=== PATIENT | male | born 1970 | race Caucasian/White ===

== ENCOUNTER → 2020-12-04 08:59 | Outpatient (BNVA) | payer OTHER, MEDICAID, SELFPAY | PROVIDERS: Family Provider Nurse Practitioner Family; PCP Nurse Practitioner Family; Referring Provider Family Medicine; Visit Provider Podiatrist Foot & Ankle Surgery | DX: E11.42 Type 2 diabetes mellitus with diabetic polyneuropathy (principal); L97.514 Non-pressure chronic ulcer of other part of right foot with necrosis of bone; Z89.431 Acquired absence of right foot; L84 Corns and callosities; L60.3 Nail dystrophy | CPT/HCPCS: 73630 ==

== ENCOUNTER 2020-12-04 21:53 | Inpatient (IN) | payer MEDICARE, MEDICAID, SELFPAY ==
[2020-12-04 22:08] VITALS: BP 100/72; PULSE 98; RESP 18; TEMP 36.7; O2SAT 98; BMI 34.4
--- NOTE | 2020-12-04 22:33 | ED_ITS ---
HPI - General Adult General: Chief complaint: General Medical Stated complaint: SENT BY DR ELKINS/WANTS ON IV ANTIBIOTICS Time Seen by Provider: 12/04/20 22:13 Source: patient Mode of arrival: ambulatory Limitations: no limitations History of Present Illness: HPI narrative: 50-year-old male who was sent here today by Dr. Elkins. Patient has cellulitis along necrosis to chronic ulcer to his right foot. He is going to surgery on him tomorrow and want him admitted overnight with IV antibiotics. He states he has had pain. He denies any fever. Denies any worsening or improving factors. He denies any vomiting or diarrhea. Associated symptoms: Deny chest pain, dyspnea, headache(s), nausea, rash or vomiting Review of Systems Const: Denies: fever(s), chills, body aches or change in appetite Eyes: Denies: blurry vision or eye discomfort ENMT: Denies: throat pain or dental pain Card: Denies: chest pain Resp: Denies: dyspnea GI: Denies: abdominal pain, nausea, vomiting or diarrhea : Denies: dysuria Musc: Denies: neck pain or back pain Skin/Breast: Denies: rash Neuro: Denies: headache(s) Psych: Denies: depression Morris/Lymph: Denies: easy bruising All/Imm: Denies: urticaria PFSH ED PFSH: Medical History Anxiety Diabetic neuropathy DM type 2 (diabetes mellitus, type 2) Hyperlipidemia Hypertension PVD (peripheral vascular disease) Surgical History H/O hernia repair History of heart artery stent Hx of amputation of lesser toe Family History Sister Diabetes Mother Diabetes Father CAD (coronary artery disease) Social History Smoking and tobacco status: current every day smoker Second hand smoke exposure: Yes Physical Exam Const: COMMON NORMALS: no acute distress, patient oriented x3 and healthy appearing HENMT: COMMON NORMALS: normocephalic and atraumatic HEAD & SCALP: normocephalic and atraumatic Eye: COMMON NORMALS: Equal, round and reactive pupils present and EOMs intact bilaterally PUPIL: Yes Equal, round and reactive pupils present Neck/C-Spine: COMMON NORMALS: full ROM and supple Chest: COMMONS NORMALS: normal inspection of the chest and normal palpation of entire chest wall Resp: COMMON NORMALS: normal respiratory effort, No retractions, No use of accessory muscles and clear to auscultation bilaterally AUSCULTATION: clear to auscultation bilaterally Cardio: COMMON NORMALS: regular rate, regular rhythm and No murmurs present (Cardio) RATE: regular rate RHYTHM: regular rhythm GI: COMMON NORMALS: Normal to inspection, nondistended, normoactive bowel sounds present, Soft to palpation, non-tender and no masses PALPATION: Yes Soft to palpation Extremity: NARRATIVE EXTREMITY EXAM: Cellulitis to right foot with chronic ulcer and exposed bone with necrosis Neuro: COMMON NORMALS: patient oriented x3, moves all extremities and no focal motor deficits Psych: COMMON NORMALS: mental status grossly normal, Normal thought process present and cooperative THOUGHT PROCESS: Normal thought process present Skin: COMMON NORMALS: no rashes or lesions noted and no wounds GENERAL SKIN EXAM: no rashes or lesions noted Course Vital Signs: Vital signs: Vital Signs Temperature 98.0 F 12/04/20 22:08 Pulse Rate 98 12/04/20 22:08 Respiratory Rate 18 12/04/20 22:08 Blood Pressure 100/72 12/04/20 22:08 Pulse Oximetry 98 12/04/20 22:08 MDM - General Adult [facility] Narrative: Medical decision making narrative: Patient presents here with chronic ulcer with necrosis and a cellulitis. I spoke to Dr. Elkins will start on IV antibiotics and admit. Discharge Plan Discharge Patient Disposition: Admitted As Inpatient Clinical Impression: Right great toe amputee, Ulcer of right foot with necrosis of bone, DM type 2 (diabetes mellitus, type 2) Condition: Stable Prescriptions: No Action nystatin 100,000 unit/mL suspension 5 ml PO TID 10 Days Qty: 150 RF: 0 clopidogrel [Plavix] 75 mg tablet 75 mg PO DAILY RF: 0 aspirin [Adult Aspirin Regimen] 81 mg tablet,delayed release (DR/EC) 81 mg PO DAILY RF: 0 oxycodone-acetaminophen 5-325 mg tablet 1 tab PO DAILY PRN (Reason: pain) 7 Days Qty: 7 RF: 0 gabapentin 400 mg capsule 400 mg PO TID 30 Days Qty: 90 RF: 0 atorvastatin 40 mg tablet 40 mg PO DAILY RF: 0 Jardiance 10 mg tablet 10 mg PO DAILY RF: 0 Levemir FlexTouch U-100 Insuln 100 unit/mL (3 mL) insulin pen 32 unit SUBCUT DAILY RF: 0 lisinopril 2.5 mg tablet 2.5 mg PO DAILY RF: 0 potassium chloride 20 mEq tablet extended release 40 meq PO DAILY RF: 0 metolazone 5 mg tablet 5 mg PO DAILY RF: 0 insulin aspart U-100 [Novolog Flexpen U-100 Insulin] 100 unit/mL (3 mL) insulin pen 2 unit SUBCUT TID RF: 0 levofloxacin 500 mg tablet 500 mg PO DAILY RF: 0 bupropion HCl [Wellbutrin SR] 150 mg tablet sustained-release 12 hr 150 mg PO BID Qty: 60 RF: 2 furosemide 40 mg tablet 40 mg PO DAILY Qty: 30 RF: 0 Referrals: Shakira Benavides FNP [Primary Care Provider] - Coding Level of Care Code ED 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
[2020-12-04 23:29] VITALS: RESP 18
[2020-12-04] MEDS: HYDROmorphone 1 mg/mL INJ 1 mL IVP (23:29)
[2020-12-04] MEDS: sodium chloride 0.9% 1,000 ML 999 ML IV (23:30)
[2020-12-04] MEDS: aztreonam 2,000 MG in sodium chloride 0.9% (plus) 100 ML 200 MG IV (23:31)
[2020-12-04] MEDS: vancomycin 1,000 MG in sodium chloride 0.9% 250 ML 250 MG IV (23:44)
[2020-12-04 23:59] LABS: Basophils # 0.1 10^3/uL (0.0-0.1); Basophils % 0.9 %; Eosinophils # 0.2 10^3/uL (0.0-0.8); Eosinophils % 2.1 %; Hematocrit 49.1 % (42.0-52.0); Lymphocytes # 3.2 10^3/uL (0.8-4.8); Mean Corpuscular HGB Conc 32.6 g/dL (30.0-36.0); Mean Corpuscular Hemoglobin 27.7 pg (28.0-34.0); Mean Corpuscular Volume 84.9 fL (80-94); Mean Platelet Volume 9.6 fL (7.4-10.4); Monocytes # 0.8 10^3/uL (0.2-0.9); Neutrophils # 6.67 10^3/uL (1.8-7.7); Neutrophils % 60.4 %; Nucleated Red Blood Cells % 0 %; Platelet Count 358 10^3/cmm (130-400); Red Blood Count 5.78 10^6/uL (4.1-5.3); Red Cell Distribution Width 16.4 % (12.1-15.1)
[2020-12-05] VITALS (22 sets, daily range): BP systolic 94–153; BP diastolic 53–97; PULSE 59–101; RESP 15–24; TEMP 36.4–36.9; O2SAT 90–98
[2020-12-05 00:20] LABS: Alanine Aminotransferase 14 U/L (0-41); Albumin Level 3.7 g/dL (3.5-5.2); Alkaline Phosphatase 114 IU/L (40-130); Aspartate Amino Transferase 12 U/L (0-40); Blood Urea Nitrogen 29 mg/dL (6-20); C Reactive Protein 26.9 mg/L (0.0-4.9); Calcium 9.2 mg/dL (8.5-10.5); Carbon Dioxide 28 mmol/L (22-29); Chloride 93 mmol/L (98-107); Globulin 4.3 g/dL (1.3-4.6); Glomerular Filtration Rate 58.9 mL/min (90-130); Glucose 166 mg/dL (65-115); Osmolality Calculated 288 mOsm/kg (285-295); Sodium 134 mmol/L (136-145); Total Bilirubin 0.4 mg/dL (0.15-1.2)
[2020-12-05 00:21] LABS: Anion Gap 17.2 (5-19); Potassium 4.2 mmol/L (3.5-5.1)
--- NOTE | 2020-12-05 00:27 | PM.HP ---
Providers/Chief Complaint Admitting Physician: Angel Villalobos Primary Care Provider: EDEN Lee Chief Complaint: SENT BY DR ELKINS/GALO ON IV ANTIBIOTICS History of Present Illness Phil Balbuena is a 50 year old male with a history of type 2 diabetes on insulin therapy, history of chronic nonhealing wound status post toes amputation was referred to the emergency department by Dr. Elkins in order for him to be admitted for surgical debridement. Patient has no new complaint. He states he has been compliant with his insulin therapy. His recent hemoglobin A1c is 6.5 per patient. Patient given IV antibiotics in the ED and hospitalized for further management. Review of Systems Narrative: He denies any fever. Except as documented, all other systems reviewed and negative. Medications/Allergies Home Medications Medication Instructions Recorded Confirmed Last Taken Type atorvastatin 40 mg tablet 40 mg PO DAILY 05/03/20 12/04/20 Unknown History empagliflozin 10 mg tablet 10 mg PO DAILY 05/03/20 12/04/20 Unknown History insulin aspart U-100 100 unit/mL 2 unit SUBCUT TID ml 05/03/20 12/04/20 Unknown History (3 mL) subcutaneous pen insulin detemir U-100 100 unit/mL 32 unit SUBCUT DAILY ml 05/03/20 12/04/20 Unknown History (3 mL) subcutaneous pen lisinopril 2.5 mg tablet 2.5 mg PO DAILY 05/03/20 12/04/20 Unknown History metolazone 5 mg tablet 5 mg PO DAILY 05/03/20 12/04/20 Unknown History potassium chloride 20 mEq 40 meq PO DAILY tab 05/03/20 12/04/20 Unknown History tablet,extended release nystatin 100,000 unit/mL oral 5 ml PO TID 10 Days #150 ml 05/21/20 12/04/20 Unknown Rx suspension bupropion HCl 150 mg tablet,12 hr 150 mg PO BID #60 tab 09/17/20 12/04/20 Unknown Rx sustained-release furosemide 40 mg tablet 40 mg PO DAILY #30 tab 11/28/20 12/04/20 Unknown Rx aspirin 81 mg tablet,delayed 81 mg PO DAILY 11/29/20 12/04/20 Unknown History release clopidogrel 75 mg tablet 75 mg PO DAILY 11/29/20 12/04/20 Unknown History gabapentin 400 mg capsule 400 mg PO TID 30 Days #90 cap 11/29/20 12/04/20 Unknown Rx oxycodone-acetaminophen 5 mg-325 1 tab PO DAILY PRN 7 Days #7 tab 11/29/20 12/04/20 Unknown Rx mg tablet levofloxacin 500 mg tablet 500 mg PO DAILY 12/04/20 12/04/20 Unknown History Allergies Allergy/AdvReac Type Severity Reaction Status Date / Time Penicillins Allergy swelling Verified 12/04/20 22:13 phentermine [From Adipex-P] Allergy swelling Verified 12/04/20 22:13 PFSH Acute PFSH: Medical History Anxiety Diabetic neuropathy DM type 2 (diabetes mellitus, type 2) Hyperlipidemia Hypertension PVD (peripheral vascular disease) Surgical History H/O hernia repair History of heart artery stent Hx of amputation of lesser toe Family History Sister Diabetes Mother Diabetes Father CAD (coronary artery disease) Social History Smoking and tobacco status: current every day smoker Second hand smoke exposure: Yes Vitals/I&O/Wt Last Vital Signs Temp 98.0 F 12/04/20 22:08 Pulse 98 12/04/20 22:08 Resp 18 12/04/20 23:29 BP 100/72 12/04/20 22:08 Pulse Ox 98 12/04/20 22:08 Weight last 48 hrs Weight 112.037 kg Physical Exam Const: COMMON NORMALS: no acute distress, patient oriented x3 and well nourished HENMT: COMMON NORMALS: normocephalic, moist oral mucous membranes and oropharynx normal Eye: COMMON NORMALS: Equal, round and reactive pupils present, conjunctivae normal and no scleral icterus Neck/C-Spine: COMMON NORMALS: supple and no JVD Lymph: LYMPHATIC: no lymphadenopathy noted Chest: CHEST: Yes Symmetrical chest wall rise Resp: COMMON NORMALS: normal respiratory effort, No use of accessory muscles and clear to auscultation bilaterally Cardio: COMMON NORMALS: regular rate, regular rhythm, S1 normal heart sound present and S2 normal heart sound present GI: COMMON NORMALS: Normal to inspection, nondistended, normoactive bowel sounds present, non-tender and no bruits : COMMON NORMALS: Yes no CVA tenderness Back/Pelvis: COMMON NORMALS: no thoracic nor lumbar tenderness and thoraco-lumbar ROM normal Extremity: COMMON NORMALS: no clubbing, cyanosis or edema NARRATIVE EXTREMITY EXAM: s/p right great toe amputation. Amputation wound in dressing. Neuro: COMMON NORMALS: patient oriented x3, CN's II-XII intact bilaterally and no focal motor deficits Psych: COMMON NORMALS: mental status grossly normal, Normal thought process present and cooperative Skin: COMMON NORMALS: no rashes or lesions noted WOUNDS: Yes wounds noted (Right foot wound) Data : 12/04/20 23:50 12/04/20 23:50 A&P Assessment and plan (1) Ulcer of right foot with necrosis of bone: Status: Acute (2) Diabetic neuropathy: Status: Acute Qualifiers: Diabetes mellitus complication detail: diabetic polyneuropathy Diabetes mellitus type: type 2 Qualified Code(s): E11.42 - Type 2 diabetes mellitus with diabetic polyneuropathy (3) Right great toe amputee: Status: Acute (4) PVD (peripheral vascular disease): Status: Acute (5) DM type 2 (diabetes mellitus, type 2): Status: Acute Additional A&P Information Admit patient to the medical floor. Consult to podiatry-Dr. Elkins who plans to do irrigation and debridement in the OR. We will cover with IV Azactam and IV vancomycin. Pain management as needed. Hold aspirin and Plavix in anticipation for surgery in the morning. Keep n.p.o. overnight. Hold Lantus insulin and resume after surgery. Manage blood sugar with aggressive insulin sliding scale. Attestations Medical Necessity Statement*: Patient with chronic nonhealing right foot wound with bone necrosis needing surgical debridement and antibiotics. He will need to be hospitalized for further management. Coding Level of Care Code Acute Geriatric Nurse Practitioner for [facility] Fwd Exam Comprehensive Diagnoses Ulcer of right foot with necrosis of bone L97.514 Diabetic neuropathy E11.42 Diabetes mellitus complication detail: diabetic polyneuropathy Diabetes mellitus type: type 2 Right great toe amputee Z89.411 PVD (peripheral vascular disease) I73.9 DM type 2 (diabetes mellitus, type 2) E11.9
[2020-12-05 01:37] LABS: Erythrocyte Sedimentation Rate 32 mm/hr (0-10)
--- NOTE | 2020-12-05 02:26 | PC.PHAR ---
Vancomycin is dosed at 1500mg IVPB every 12 hours to produce a predicted trough level of 16.35 (population based pharmacokinetic analysis). A trough level has been ordered from the lab to be obtained before the fourth dose to confirm and adjust if needed. The Azactam is continued at the ordered dose of 2000mg IVPB every 12 hours on basis of creatinine clearance of 88.5.
[2020-12-05] MEDS: morphine 4 mg/mL SDV 1 mL 2 MG IVP ×2 (02:59→04:31)
[2020-12-05] MEDS: sodium chloride 0.9% 1,000 ML 75 ML IV ×2 (03:08→17:29)
[2020-12-05 06:43] LABS: Glucose Point of Care 154 mg/dL (70-110)
--- NOTE | 2020-12-05 08:43 | PM.CONSULT ---
Providers/Reason For Consult Consulting Physican/Specialty*: Bhargav Frey D.P.M. Reason for Consult*: Gangrene right foot osteomyelitis right foot Attending Physician: Issa Dupree Primary Care Provider: EDEN Lee History of Present Illness History of Present Illness Phil Balbuena is a 50 year old male with gangrenous changes at his right foot. History of great toe amputation in August 2020 and second toe removed in October [address] Khalil in [facility]. States he has had oral antibiotic therapy has been on Levaquin for several months, denies history of PICC line. He sees [employer] [facility] Dr. Eugene in [facility], had orders for a CT angio he will not be able to keep that appointment as he is hospitalized at this time. Denies any acute events over night, reports pain to his right foot. Requesting pain medication. Has been n.p.o. since midnight. Patient denies any subjective nausea, vomiting, fever, chills, shortness of breath or chest pain. Review of Systems General: Reports: 10 or more systems reviewed and unremarkable except in HPI and below Const: Denies: fever(s) or chills Eyes: Denies: change in vision or eye redness Card: Reports: swelling of feet/ankles and leg pain with exertion; Denies: chest pain or palpitations Resp: Denies: dyspnea GI: Denies: nausea or vomiting : Denies: hematuria Musc: Reports: extremity pain and extremity swelling Skin/Breast: Reports: erythema, sores, dry skin, nail changes and change in hair Neuro: Reports: numbness in extremities, sensory changes and difficulty walking Psych: Denies: suicidal ideation or homicidal ideation Endo: Reports: cold intolerance Morris/Lymph: Denies: easy bruising Meds/Allergies Home Medications and Allergies Home Medications Medication Instructions Recorded Confirmed Last Taken Type atorvastatin 40 mg tablet 40 mg PO DAILY 05/03/20 12/04/20 Unknown History empagliflozin 10 mg tablet 10 mg PO DAILY 05/03/20 12/04/20 Unknown History insulin aspart U-100 100 unit/mL 2 unit SUBCUT TID ml 05/03/20 12/04/20 Unknown History (3 mL) subcutaneous pen insulin detemir U-100 100 unit/mL 32 unit SUBCUT DAILY ml 05/03/20 12/04/20 Unknown History (3 mL) subcutaneous pen lisinopril 2.5 mg tablet 2.5 mg PO DAILY 05/03/20 12/04/20 Unknown History metolazone 5 mg tablet 5 mg PO DAILY 05/03/20 12/04/20 Unknown History potassium chloride 20 mEq 40 meq PO DAILY tab 05/03/20 12/04/20 Unknown History tablet,extended release nystatin 100,000 unit/mL oral 5 ml PO TID 10 Days #150 ml 05/21/20 12/04/20 Unknown Rx suspension bupropion HCl 150 mg tablet,12 hr 150 mg PO BID #60 tab 09/17/20 12/04/20 Unknown Rx sustained-release furosemide 40 mg tablet 40 mg PO DAILY #30 tab 11/28/20 12/04/20 Unknown Rx aspirin 81 mg tablet,delayed 81 mg PO DAILY 11/29/20 12/04/20 Unknown History release clopidogrel 75 mg tablet 75 mg PO DAILY 11/29/20 12/04/20 Unknown History gabapentin 400 mg capsule 400 mg PO TID 30 Days #90 cap 11/29/20 12/04/20 Unknown Rx oxycodone-acetaminophen 5 mg-325 1 tab PO DAILY PRN 7 Days #7 tab 11/29/20 12/04/20 Unknown Rx mg tablet levofloxacin 500 mg tablet 500 mg PO DAILY 12/04/20 12/04/20 Unknown History Allergies Allergy/AdvReac Type Severity Reaction Status Date / Time Penicillins Allergy swelling Verified 12/04/20 22:13 phentermine [From Adipex-P] Allergy swelling Verified 12/04/20 22:13 Current Medications Current Medications Generic Name Dose Route Start Last Admin Trade Name Freq PRN Reason Stop Dose Admin Sodium Chloride 1,000 mls @ 75 mls/hr 12/05/20 02:06 12/05/20 03:08 Sodium Chloride 0.9% IV 75 mls/hr .[id number] TIM Administration PFSH Acute PFSH: Medical History Anxiety Diabetic neuropathy DM type 2 (diabetes mellitus, type 2) Hyperlipidemia Hypertension PVD (peripheral vascular disease) Surgical History H/O hernia repair History of heart artery stent Hx of amputation of lesser toe Family History Sister Diabetes Mother Diabetes Father CAD (coronary artery disease) Social History Smoking and tobacco status: current every day smoker Second hand smoke exposure: Yes Vitals/I&O/Wt Last Vital Signs Temp 97.8 F 12/05/20 07:16 Pulse 94 12/05/20 07:16 Resp 17 12/05/20 07:16 BP 116/80 12/05/20 07:16 Pulse Ox 95 12/05/20 07:16 12/04/20 12/05/20 12/05/20 22:59 06:59 14:59 Intake Total 1350 / 1350 Output Total 950 / 950 Balance 400 / 400 Weight last 48 hrs Weight 247 lb Physical Exam Narrative: EXAM NARRATIVE: Patient is alert and oriented ?3 and in no acute distress. The following is a focused bilateral lower extremity exam. VASCULAR: Dorsalis pedis faintly palpable posterior tibial arteries faintly palpable. Capillary refill time less than 5 seconds left distal hallux and right fourth toe. Calf is supple and nontender proximally and distally. Decreased pedal hair bilaterally. NEUROLOGICAL: Protective sensation intact 0/10 sites, tested with Beckley Consuelo monofilament to bilateral feet. DERMATOLOGICAL: Rodrigues grade 4 wound right foot with exposed first, second and third metatarsals as 90% devitalized fibrotic base with eschar, strong malodor mild purulence measures 7 cm x 6 m x 1 cm. Mild erythema to the proximal leg right, no lymphangitic streaking proximal to the right knee. Mild edema to the right foot and leg. Dystrophic toenails 4 and 5 on the right and 1 through 5 at the left. Hyperkeratosis subfifth metatarsal head left foot. MUSCULOSKELETAL: Tenderness palpation at the right foot. Status post first second and third toe amputation right foot. Ankle joint dorsiflexion is to neutral with the right. A&P Assessment and plan (1) Ulcer of right foot with necrosis of bone: Status: Acute (2) DM type 2 (diabetes mellitus, type 2): Status: Acute Qualifiers: Diabetes mellitus correction insulin use: with correction use Diabetes mellitus complication status: with circulatory complication Diabetes mellitus complication detail: with peripheral angiopathy with gangrene Qualified Code(s): E11.52 - Type 2 diabetes mellitus with diabetic peripheral angiopathy with gangrene; Z79.4 - jail (current) use of insulin (3) Peripheral arterial disease: Status: Acute Mr. Balbuena is a 50-year-old diabetic male with peripheral arterial disease, currently has open wound exposed to bone with gangrenous changes at right forefoot. Concern for underlying vasculopathy. Recommend CT angiogram of abdominal aorta with runoff during his hospitalization. Will have a staged approach with initial infection control consisting of transmetatarsal amputation of the right foot scheduled today at noon he is n.p.o. since midnight. Once infection is controlled will await vascular work-up and plan for primary delayed closure. Consult Attestations Medical Necessity Statement: Gangrene right foot osteomyelitis right foot Coding Level of Care Code Acute Environmental Engineer for [facility] Diagnoses Ulcer of right foot with necrosis of bone L97.514 DM type 2 (diabetes mellitus, type 2) E11.52; Z79.4 Diabetes mellitus termite exterminator helper insulin use: with termite exterminator helper use Diabetes mellitus complication status: with circulatory complication Diabetes mellitus complication detail: with peripheral angiopathy with gangrene Peripheral arterial disease I73.9
[2020-12-05] MEDS: atorvastatin 40 mg Tablet PO (08:53)
[2020-12-05 09:07] LABS: Glucose Point of Care 188 mg/dL (70-110)
--- NOTE | 2020-12-05 10:08 | PC.PHAR ---
PT STATES HIS HELPS HIM TAKE CARE OF HIS MEDICATIONS-PT STATES HE HASNT BEEN USING HIS LEVEMIR FLEXTOUCH FOR A MONTH AND A HALF-PT STATES HE USES HIS NOVOLOG FLEXPEN SS TID PRN WITH MEALS-EXT MED HISTORY SHOWS LAST FILLED ON 10/24/20 FOR 10 UNITS WITH MEALS PLUS CORRECTION MAX 60 UNITS PER DAY
--- NOTE | 2020-12-05 10:57 | PM.PN ---
Subjective Subjective: Interval history: He states that he has continued being in pain through the night in his right foot. States that 5-325 mg oxycodone-acetaminophen is not working for him. He says at home he takes at least 10 mg. Also states that the 2 mg morphine he received last night was not effective. On review of his medications I do see that the dosing is been increased up to 10 mg oxycodone, as well as 4 mg IV morphine as needed. He otherwise denies any chest pain or pressure. Denies shortness of breath. Foot pain is his only complaint. Vitals/I&O/Wt Last Vital Signs Temp 97.8 F 12/05/20 07:16 Pulse 94 12/05/20 07:16 Resp 17 12/05/20 07:16 BP 116/80 12/05/20 07:16 Pulse Ox 95 12/05/20 07:16 12/04/20 12/05/20 12/05/20 22:59 06:59 14:59 Intake Total 1350 / 1350 Output Total 950 / 950 Balance 400 / 400 Weight last 48 hrs Weight 112.037 kg Physical Exam Const: COMMON NORMALS: no acute distress and patient oriented x3 HENMT: COMMON NORMALS: oropharynx normal Neck/C-Spine: COMMON NORMALS: no JVD Resp: COMMON NORMALS: normal respiratory effort and clear to auscultation bilaterally AUSCULTATION: clear to auscultation bilaterally Cardio: COMMON NORMALS: no JVD, regular rhythm, S1 normal heart sound present, S2 normal heart sound present and No murmurs present (Cardio) RHYTHM: regular rhythm HEART SOUNDS: S1 normal heart sound present and S2 normal heart sound present GI: COMMON NORMALS: Normal to inspection, nondistended, normoactive bowel sounds present, Soft to palpation and non-tender PALPATION: Yes Soft to palpation Extremity: COMMON NORMALS: no joint enlargement and no pedal edema Neuro: COMMON NORMALS: patient oriented x3 and moves all extremities Skin: COMMON NORMALS: no rashes or lesions noted GENERAL SKIN EXAM: no rashes or lesions noted Data : 12/04/20 23:50 12/04/20 23:50 A&P Assessment and plan (1) Ulcer of right foot with necrosis of bone: He is n.p.o. for planned potation debridement later this afternoon. Adrenal reviewed. Recommendation for CT angiogram normal aorta with runoff for additional vascular assessment. He states that this was already planned as outpatient. He states that he had femorofemoral bypass back in August, and states that previously his vascular surgeon thought that the flow to the foot was good. He does say that his vascular surgeon thought that a lot of his disease in his foot was related to microvascular circulation. His vascular surgeon was not who ordered a follow-up CT angiogram. 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 His creatinine appears 1.3, higher than his previous baseline although we not have anything more recent than 2019. Today he is proceeding with debridement/amputation. We will reassess renal function in the morning. If approved, consider contrast vascular imaging. Resume antiplatelets as soon as deemed safe. Continue IV antibiotics. Follow-up cultures. Status: Acute (2) Diabetic neuropathy: Status: Acute Qualifiers: Diabetes mellitus complication detail: diabetic polyneuropathy Diabetes mellitus type: type 2 Qualified Code(s): E11.42 - Type 2 diabetes mellitus with diabetic polyneuropathy (3) Right great toe amputee: Status: Acute (4) PVD (peripheral vascular disease): Status: Acute (5) DM type 2 (diabetes mellitus, type 2): Status: Acute Qualifiers: Diabetes mellitus complication detail: with peripheral angiopathy with gangrene Diabetes mellitus complication status: with circulatory complication Diabetes mellitus termite helper insulin use: with termite helper use Qualified Code(s): E11.52 - Type 2 diabetes mellitus with diabetic peripheral angiopathy with gangrene; Z79.4 - long term care phlebotomist (current) use of insulin (6) Smoking addiction: Encourage cessation as continued smoking will be detrimental to healing of the wounds in his lower extremity. Status: Acute Attestations Medical Necessity Statement*: Continue admission for assessment management of chronic nonhealing right foot wound status post multiple toe amputations in setting of diabetes with neuropathy, peripheral arterial disease. Coding Level of Care Code Acute Caponizer for [facility] Fwd Exam Comprehensive Diagnoses Ulcer of right foot with necrosis of bone L97.514 Diabetic neuropathy E11.42 Diabetes mellitus complication detail: diabetic polyneuropathy Diabetes mellitus type: type 2 Right great toe amputee Z89.411 PVD (peripheral vascular disease) I73.9 DM type 2 (diabetes mellitus, type 2) E11.52; Z79.4 Diabetes mellitus complication detail: with peripheral angiopathy with gangrene Diabetes mellitus complication status: with circulatory complication Diabetes mellitus termite helper insulin use: with termite helper use Smoking addiction F17.200
[2020-12-05 11:04] LABS: Glucose Point of Care 169 mg/dL (70-110)
--- NOTE | 2020-12-05 11:11 | PC.NURSE ---
1110-PT TO OR FOR SURGICAL PROCEDURE
[2020-12-05] MEDS: sodium chloride 0.9% 1,000 ML 30 ML IV (11:29)
--- NOTE | 2020-12-05 11:33 | P.ANESASSM_ITS ---
Pre-Anesthetic Assessment Pre-Anesthetic Assessment: Height/Weight: Height 1.8 m Weight 112.037 kg Temp Pulse Resp BP Pulse Ox 97.8 F 94 17 116/80 95 12/05/20 07:16 12/05/20 07:16 12/05/20 07:16 12/05/20 07:16 12/05/20 07:16 Preop Diagnosis: Ulcer of R foot Proposed Procedure: Operation Date: 12/05/20 12:00 Proposed Procedures p right transmetatarsal amputation(Right) - Bhargav Frey DPM Familial anesthetic complications: None Was Beta Jesus taken within 24 hours: N/A Last intake: NPO > 8 hrs Social: Social History: Tobacco and No alcohol Exam: Pre-Anes Outpt Exam: alert, oriented x 3, clear to auscultation bilaterally and regular rate & rhythm Airway: Cervical ROM: WNL MP: 4 Dentition: Other (missing teeth) CV/HEM: CV/HEM: HTN, NV (4 stents placed > 1 year ago, plavix yesterday) and PVD (fem-fem bypass) Metabolic: Metabolic: DM, Hyperlipidemia and Morbid obesity Anesthetic Plan: ASA status: 3 Anesthesia: MAC Risk of > 500 ml blood loss (7ml/kg in children): No Meds/Allergies Current Medications: Current Medications Generic Name Dose Route Start Last Admin Trade Name Freq PRN Reason Stop Dose Admin Atorvastatin Calci um 40 mg 12/05/20 09:00 12/05/20 08:53 Atorvastatin 40 Mg Tablet PO 40 mg DAILY TIM Administration Sodium Chloride 1,000 mls @ 75 ml s/hr 12/05/20 02:06 12/05/20 11:28 Sodium Chloride 0.9% IV Infused .[id number] TIM Infusion Sodium Chloride 1,000 mls @ 30 ml s/hr 12/05/20 11:30 12/05/20 11:29 Sodium Chloride 0.9% IV 12/06/20 11:29 30 mls/hr .Q24H TIM Administration Insulin Aspart 0 unit 12/05/20 08:00 12/05/20 08:53 Insulin Aspart 1 00 Unit/1 Ml SUBCUT 2 unit WM&BEDTIME TIM Administration Protocol PFSH Anesthesia PFSH: Medical History Anxiety Diabetic neuropathy DM type 2 (diabetes mellitus, type 2) Hyperlipidemia Hypertension PVD (peripheral vascular disease) Surgical History H/O hernia repair History of heart artery stent Hx of amputation of lesser toe Family History Sister Diabetes Mother Diabetes Father CAD (coronary artery disease) Social History Smoking and tobacco status: current every day smoker Second hand smoke exposure: Yes Data Anesthesia CBC & Chem 7: 12/04/20 23:50 12/04/20 23:50 Other Labs: Laboratory Results - last 48 hr 12/04/20 12/04/20 12/04/20 23:50 23:50 23:50 WBC 11.0 H RBC 5.78 H Hgb 16.0 Hct 49.1 MCV 84.9 MCH 27.7 L MCHC 32.6 RDW 16.4 H Plt Count 358 MPV 9.6 Neut % (Auto) 60.4 Lymph % (Auto) 29.0 [place] % (Auto) 7.0 Eos % (Auto) 2.1 Baso % (Auto) 0.9 Neut # (Auto) 6.67 Lymph # (Auto) 3.2 [place] # (Auto) 0.8 Eos # (Auto) 0.2 Baso # (Auto) 0.1 Nucleated RBC % (auto) 0 Nucleated RBCs # 0.0 ESR 32 H Sodium 134 L Potassium 4.2 Chloride 93 L Carbon Dioxide 28 Anion Gap 17.2 BUN 29 H Creatinine 1.3 H GFR Calculation 58.9 L Glucose 166 H POC Glucose Calculated Osmolality 288 Calcium 9.2 Total Bilirubin 0.4 AST 12 ALT 14 Alkaline Phosphatase 114 C-Reactive Protein 26.9 H Total Protein 8.0 Albumin 3.7 Globulin 4.3 12/05/20 12/05/20 12/05/20 06:31 09:04 10:47 WBC RBC Hgb Hct MCV MCH MCHC RDW Plt Count MPV Neut % (Auto) Lymph % (Auto) [place] % (Auto) Eos % (Auto) Baso % (Auto) Neut # (Auto) Lymph # (Auto) [place] # (Auto) Eos # (Auto) Baso # (Auto) Nucleated RBC % (auto) Nucleated RBCs # ESR Sodium Potassium Chloride Carbon Dioxide Anion Gap BUN Creatinine GFR Calculation Glucose POC Glucose 154 H 188 H 169 H Calculated Osmolality Calcium Total Bilirubin AST ALT Alkaline Phosphatase C-Reactive Protein Total Protein Albumin Globulin Cardiac Studies: No Data to Display
[2020-12-05] MEDS: fentaNYL 50 mcg/mL INJ 2mL IVP (11:39)
--- NOTE | 2020-12-05 11:45 | P.HPUD_ITS ---
Surgery/Procedure H&P Update DATE OF PROCEDURE: December 05, 2020 DATE H&P PERFORMED: 12/05/20 H&P UPDATE INFORMATION: I have reviewed H&P completed within last 30 days, I have examined patient prior to procedure, No changes to prior documentation and H&P is in [facility] EMR on date indicated PREOP DIAGNOSIS: Osteomyelitis right foot, gangrene right foot PLANNED PROCEDURE: Operation Date: 12/05/20 12:00 Proposed Procedures p right transmetatarsal amputation(Right) - Bhargav Frey DPM
[2020-12-05] MEDS: vancomycin 1,000 MG SDV 1000 MG XX (12:40)
--- NOTE | 2020-12-05 12:48 | PM.OP ---
Operative Report Date of procedure: December 05, 2020 Pre-op Diagnosis: Osteomyelitis right foot, gangrene right foot Post-op diagnosis: same Procedure Done: Right transmetatarsal amputation CPT 71375 Implants: 3-0 nylon Specimens removed/disposition: Right third metatarsal head sent to microbiology for Gram stain and culture Pathology: Right fourth and fifth toe sent to pathology for permanent Surgeon: Bhargav Frey D.P.M. Stagecraft Teacher: Mike Anesthesia: MAC Estimated blood loss: 25 mL Tourniquet time: 14 minutes IV fluids: None Urine output: None Complications: None Findings: Devitalized soft tissue and bone right forefoot Condition: stable Disposition: floor Brief History: Mr. Balbuena is a 50-year-old diabetic male with gangrene right foot osteomyelitis involving the first, second and third metatarsals potentially fourth. Also has underlying peripheral arterial disease. First and second toes were amputated by Dr. Nielson and [facility] this began in September 2020. Patient presented to my clinic with worsening odor, redness, pain and swelling at the right forefoot. Recommended admission to the hospital for IV antibiotics and surgical intervention. Will need to be a staged procedure initial transmetatarsal irritation of right foot and followed by vascular work-up this will require CT angiogram of abdominal aorta with runoff to assess vascular status. Risks include pain, bleeding, numbness, residual infection, need for higher levels of amputation, revascularization, oral and IV antibiotic therapy. Patient is agreeable wishes to proceed with today's procedure of right transmetatarsal amputation. Informed consent signed. Patient evaluated preoperatively and all questions answered, no guarantees written, expressed or implied. Procedure: Under mild sedation the patient was brought to the operating room and placed on the operating table in supine position. A well-padded pneumatic tourniquet applied to the right calf. Right lower extremity were scrubbed, prepped and draped utilizing normal aseptic technique. Also preoperatively a right ankle block was performed by myself consisting of 30 cc of 0.5 sent Marcaine and 1% lidocaine plain in a one-to-one mixture. Right calf tourniquet inflated to 250 mmHg. Attention was directed to the right forefoot was able to visualize first, second and third metatarsals with bowman dusky appearance and heavy purulence at the dorsal medial forefoot. [place] incision was performed at the right forefoot down to bone followed by transection of metatarsals 1 through 5 maintaining the metatarsal parabola beveling the edges utilizing a sagittal saw all rough edges were smoothed with a hand rasp. Bleeders were ligated and cauterized as necessary. Extensor and flexor tendons were pulled under traction and transected at the most proximal margin. Right fourth and fifth toes sent to pathology for permanent. Right third metatarsal head sent to microbiology for Gram stain and culture. Incision site was flushed with copious amounts sterile sensation. Dressings consisting of 1 g of vancomycin powder, saline wet-to-dry, retention sutures with 3-0 nylon, Kerlix ABD pad and Neel wrap without compression due to underlying vasculopathy. Tourniquet was deflated and hyperemic response was noted, no pulsatile bleeders appreciated. Patient will be transferred back to the floor will be nonweightbearing to the right lower extremity. Continue empiric IV antibiotics vancomycin and Zosyn will narrow once bone culture revealed further results. Will likely require further surgical intervention this could entail a Achilles lengthening and primary delayed closure versus higher level of amputation.
--- NOTE | 2020-12-05 12:57 | XR_ITS ---
WS: [id number] Right foot, 3 views, 12/05/2020 Clinical Data: post op Comparison: Right foot, 12/04/2020 Findings: Amputation of the right fourth and fifth toes along with amputation of the distal portions of the rig ht second through fifth metatarsals has been performed. There is postoperative air noted. XR/XR foot RT min 3V* [id number] Impression: Amputation of the distal portions of the right second through fifth metatarsals and amputation of the right fourth and fifth toes.
[2020-12-05] MEDS: morphine 4 mg/mL SDV 1 mL IVP ×2 (14:30→20:25)
--- NOTE | 2020-12-05 16:00 | ANE.PACU2 ---
Inpatient post-anesthesia follow up: Airway intact: Yes Vital signs: Temperature 98.8 F Pulse Rate [Monito r] 98 Pulse Rate 100 Respiratory Rate 17 Blood Pressure [Le ft Arm] 100/72 Blood Pressure 133/85 Pulse Oximetry 97 Oxygen Delivery Me thod Room Air Oxygen Flow Rate Fraction of Inspir ed Oxygen Hydration adequate: Yes Nausea and vomiting: No Pain level: 2 Mental status: Baseline
[2020-12-05 16:37] LABS: Glucose Point of Care 122 mg/dL (70-110)
[2020-12-05] MEDS: vancomycin 1,500 MG/300 ML PIGGYBACK 150 MG IV (17:59)
[2020-12-05] MEDS: gabapentin 400 mg Capsule PO (20:26)
[2020-12-05] MEDS: buPROPion SR (12 HR) 150 mg Tablet PO (20:26)
[2020-12-05] MEDS: oxyCODONE 10 mg ER (12 HR) Tablet PO (20:27)
[2020-12-05] MEDS: aztreonam 2,000 MG in sodium chloride 0.9% (plus) 100 ML 200 MG IV (20:30)
[2020-12-05 20:43] LABS: Glucose Point of Care 217 mg/dL (70-110)
--- NOTE | 2020-12-05 20:49 | PC.NURSE ---
Pt Complaint: Pt very upset this evening stating that we are not controlling his pain and is considering leaving AMA. Both the Hospitalist and the Surgeon documentation writer were notified and agreed that the pain medication ordered was appropriate for this patient. called upset as well asking to speak to the Lean Manager of job specification writer. Chemical Economist notified that the would be calling. An increase was made in the pt Gabapentin to be started tonight. Patient was updated and is satisfied with the plan of care this evening.
[2020-12-05] MEDS: gabapentin 100 mg Capsule 200 MG PO (22:09)
[2020-12-05] MEDS: trazodone 50 mg Tablet 25 MG PO (22:10)
--- NOTE | 2020-12-05 22:36 | PC.NURSE ---
Refusal of Covid test: Spoke to the pt about the Covid test and let him know that his will not be able to visit until we get the test results. Pt refused the test.
[2020-12-06] VITALS (13 sets, daily range): BP systolic 120–135; BP diastolic 76–88; PULSE 100–115; RESP 17–24; TEMP 36.5–37.4; O2SAT 94–98
[2020-12-06] MEDS: morphine 4 mg/mL SDV 1 mL IVP ×5 (00:39→20:07)
[2020-12-06 02:33] LABS: Basophils # 0.1 10^3/uL (0.0-0.1); Basophils % 0.8 %; Eosinophils # 0.2 10^3/uL (0.0-0.8); Eosinophils % 1.5 %; Hematocrit 47.6 % (42.0-52.0); Hemoglobin 15.3 g/dL (11.7-16.6); Lymphocytes # 1.9 10^3/uL (0.8-4.8); Lymphocytes % 18.8 %; Mean Corpuscular HGB Conc 32.1 g/dL (30.0-36.0); Mean Corpuscular Hemoglobin 27.7 pg (28.0-34.0); Mean Corpuscular Volume 86.2 fL (80-94); Mean Platelet Volume 9.4 fL (7.4-10.4); Monocytes # 0.8 10^3/uL (0.2-0.9); Monocytes % 7.5 %; Neutrophils # 7.31 10^3/uL (1.8-7.7); Neutrophils % 70.9 %; Nucleated Red Blood Cells % 0 %; Platelet Count 307 10^3/cmm (130-400); Red Blood Count 5.52 10^6/uL (4.1-5.3); Red Cell Distribution Width 15.9 % (12.1-15.1); White Blood Count 10.3 10^3/uL (4.0-10.0)
[2020-12-06 02:47] LABS: Anion Gap 13.3 (5-19); Blood Urea Nitrogen 19 mg/dL (6-20); Carbon Dioxide 24 mmol/L (22-29); Chloride 101 mmol/L (98-107); Glomerular Filtration Rate 103.2 mL/min (90-130); Glucose 125 mg/dL (65-115); Magnesium 1.9 mg/dL (1.7-2.3); Osmolality Calculated 282 mOsm/kg (285-295); Potassium 4.3 mmol/L (3.5-5.1); Sodium 134 mmol/L (136-145)
[2020-12-06] MEDS: vancomycin 1,500 MG/300 ML PIGGYBACK 150 MG IV ×2 (04:57→16:06)
[2020-12-06] MEDS: sodium chloride 0.9% 1,000 ML 75 ML IV ×2 (05:32→19:52)
[2020-12-06 06:40] LABS: Glucose Point of Care 147 mg/dL (70-110)
--- NOTE | 2020-12-06 08:10 | CT_ITS ---
WS: [id number] CT ANGIOGRAPHY OF THE ABDOMINAL AORTA WITH RUNOFF TO THE ANKLES HISTORY: with runoff to distal RLE. Non-healing wounds. Hx fem-fem bypass TECHNIQUE: Arterial injection is performed during imaging to evaluate the aorta and runoff vessels to the ankles. MIP and volume rendering imaging has also been performed. All images are reviewed. All C T scans at [facility] use at least one of these dose optimization techniques: automated ex posure control; mA and/or kV adjustment per patient size (includes targeted exams where dose is match ed to clinical indication); or iterative reconstruction. Contrast: Omnipaque 350; 95 mL IV. DLP: 2185.59 mGy.cm COMPARISON: None available. Abdominal aorta: Atherosclerotic plaque throughout the aorta. There is calcified plaque and intimal t hickening. Just above the bifurcation the lumen is narrowed to 11 mm. No aneurysm. Origins of the ila iac axis, SMA and renal arteries are intact. RIGHT lower extremity arterial system: Mild plaque at the origin of the RIGHT common iliac artery. St enosis at the common iliac origin is less than 30%. Multifocal areas of plaque which are both calcifi ed and noncalcified plaque. There is a complete occlusion involving the origin of the RIGHT external iliac artery. Minimal focal reconstitution distally. Patient has a known femorofemoral bypass graft. The femorofemoral bypass graft is occluded. There is no contrast within this graft. Very small calibe r and intermittently visualized RIGHT superficial and profunda. Patent RIGHT profunda artery with darrick cified plaque proximally approaching 50%. There is an occluded RIGHT femoral to popliteal bypass dalila t. Small collaterals feeding into the tibioperoneal trunk and the posterior tibial artery. Very small caliber vessels to the ankle. LEFT lower extremity arterial system: Calcified plaque and mild atherosclerosis throughout the common iliac artery extending into the internal and external iliacs. Heavily diseased internal iliac artery . Significant atherosclerotic plaque throughout the external iliac artery. Small caliber but patent L EFT SFA. At Heron's canal is a focal area of stenosis approaching 50%. Small noncalcified plaque in the popliteal artery. Small caliber three-vessel runoff to the ankle. Distally peroneal is occluded o r very small caliber. Origin LEFT SFA 63% stenosis. Distal LEFT SFA stenosis 62%. LEFT popliteal stenosis 72%. Mild chronic emphysematous changes at the lung bases. Mild enlargement of the LEFT heart chambers. Sm all hiatal hernia. Early arterial enhancement of the liver, spleen, gallbladder, pancreas, adrenals a nd kidneys are negative for acute abnormalities. No adenopathy or ascites. Mild diffuse constipation. Appendix is normal. No GI tract obstruction. Small ventral abdominal wall hernia contains fat only. Marked distention of the urinary bladder. No osteoblastic or osteolytic bone disease. CT/CT angio abd aorta runof 91186 IMPRESSION: 1. Occluded femorofemoral bypass graft. 2. Occluded RIGHT femoral to popliteal artery bypass graft. 3. Mild stenosis distal abdominal aorta just above the bifurcation and 11 mm d iameter. 4. Distal LEFT SFA stenosis 62% and LEFT popliteal stenosis 72%. 5. Origin LEFT SFA stenosis 63%. 6. Small caliber three-vessel runoff to the ankle. The very distal LEFT peron eal artery is not visualized.
--- NOTE | 2020-12-06 08:13 | PM.PN ---
Subjective Subjective: Interval history: Mr. Balbuena is 1 day status post right transmetatarsal amputation secondary to osteomyelitis. He endorses pain to the right lower extremity. Patient denies any subjective nausea, vomiting, fever, chills, shortness of breath or chest pain. Vitals/I&O/Wt Last Vital Signs Temp 98.8 F 12/06/20 07:17 Pulse 100 12/06/20 07:17 Resp 17 12/06/20 07:17 BP 133/85 12/06/20 07:17 Pulse Ox 97 12/06/20 07:17 12/05/20 12/06/20 12/06/20 22:59 06:59 14:59 Intake Total 1440 / 2240 1003.75 / 3243.75 Output Total 550 / 1275 800 / 2075 Balance 890 / 965 203.75 / 1168.75 Weight last 48 hrs Weight 247 lb Physical Exam Narrative: EXAM NARRATIVE: Patient is alert and oriented ?3 and in no acute distress. The following is a focused bilateral lower extremity exam. VASCULAR: Dorsalis pedis faintly palpable posterior tibial arteries faintly palpable. Capillary refill time less than 5 seconds left distal hallux and right fourth toe. Calf is supple and nontender proximally and distally. Decreased pedal hair bilaterally. NEUROLOGICAL: Protective sensation intact 0/10 sites, tested with [place] Consuelo monofilament to bilateral feet. DERMATOLOGICAL: Postoperative dressings left intact, no strikethrough bleeding from outer dressing. No proximal lymphangitic streaking to the level of the right knee. Improvement to cellulitis to the right lower extremity. MUSCULOSKELETAL: No pain with posterior calf squeeze. Able to dorsiflex and plantarflex ankle. Further musculoskeletal exam deferred due to postoperative state Data : 12/06/20 02:20 12/06/20 02:20 Micro: Microbiology 12/05/20 12:36 Gram Stain - Final Foot - #1 A&P Assessment and plan (1) Ulcer of right foot with necrosis of bone: Status: Acute (2) DM type 2 (diabetes mellitus, type 2): Status: Acute Qualifiers: Diabetes mellitus correction insulin use: with terminal block assembler use Diabetes mellitus complication status: with circulatory complication Diabetes mellitus complication detail: with peripheral angiopathy with gangrene Qualified Code(s): E11.52 - Type 2 diabetes mellitus with diabetic peripheral angiopathy with gangrene; Z79.4 - longterm (current) use of insulin (3) Peripheral arterial disease: Status: Acute Mr. Balbuena is a 50-year-old diabetic male with peripheral arterial disease, currently has open wound exposed to bone with gangrenous changes at right forefoot. 1 day status post right transmetatarsal mutation left open has retention sutures and sterile dressing left intact. -Recommend vascular referral for work-up of lower extremity arterial disease this will be a priority for limb salvage -Recommend infectious disease consultation -Patient to remain nonweightbearing to the right lower extremity and elevate right lower extremity all times while resting. -Podiatry will follow. Planning on primary delayed closure should vascular status improve and have healing potential if not will require higher level of amputation more than likely. Attestations Medical Necessity Statement*: Osteomyelitis right lower extremity. Coding Level of Care Code Acute [employer] Defense Analyst for [facility] Diagnoses Ulcer of right foot with necrosis of bone L97.514 DM type 2 (diabetes mellitus, type 2) E11.52; Z79.4 Diabetes mellitus terminal block assembler insulin use: with terminal block assembler use Diabetes mellitus complication status: with circulatory complication Diabetes mellitus complication detail: with peripheral angiopathy with gangrene Peripheral arterial disease I73.9
[2020-12-06] MEDS: gabapentin 300 mg Capsule 600 MG PO ×3 (08:28→20:20)
[2020-12-06] MEDS: buPROPion SR (12 HR) 150 mg Tablet PO ×2 (08:29→20:20)
[2020-12-06] MEDS: oxyCODONE 10 mg ER (12 HR) Tablet PO ×2 (08:29→20:20)
[2020-12-06] MEDS: atorvastatin 40 mg Tablet PO (08:30)
--- NOTE | 2020-12-06 08:38 | PC.NURSE ---
pt of floor to ct
[2020-12-06] MEDS: iohexol 350 mg/mL 100 mL Btl IV (08:48)
[2020-12-06 11:21] LABS: Glucose Point of Care 134 mg/dL (70-110)
[2020-12-06] MEDS: aztreonam 2,000 MG in sodium chloride 0.9% (plus) 100 ML 200 MG IV ×2 (13:25→23:37)
--- NOTE | 2020-12-06 20:04 | P.CONIM_ITS ---
Providers/Reason For Consult Consulting Physican/Specialty*: Wilbert Nunez MD/Interventional Cardiology Reason for Consult*: Critical limb ischemia/limb salvage Requesting Physcian: Dr Dupree Attending Physician: Issa Dupree Primary Care Provider: EDEN Lee History of Present Illness History of Present Illness 50 year old male with a history of type 2 diabetes on insulin therapy, history of chronic nonhealing wound status post right toes amputation was referred to the emergency department by Dr. Frey for surgical debridement. Patient underwent metatarsal amputation secondary to gangrenous changes of the right foot and osteomyelitis. Interventional cardiology consulted to assess for possible intervention of the lower extremity as patient has both fem-fem and fem-pop bypasses occluded on the CTA and has severe PAD on the right side. Patient has been having significant right lower extremity discomfort. Review of Systems General: Reports: 10 or more systems reviewed and unremarkable except in HPI and below Const: Denies: fever(s) or chills Eyes: Denies: change in vision or eye redness Card: Reports: swelling of feet/ankles and leg pain with exertion; Denies: chest pain or palpitations Resp: Denies: dyspnea GI: Denies: nausea or vomiting : Denies: hematuria Musc: Reports: extremity pain and extremity swelling Skin/Breast: Reports: erythema, sores, dry skin, nail changes and change in hair Neuro: Reports: numbness in extremities, sensory changes and difficulty walking Psych: Denies: suicidal ideation or homicidal ideation Endo: Reports: cold intolerance Morris/Lymph: Denies: easy bruising Meds/Allergies Home Medications and Allergies Home Medications Medication Instructions Recorded Confirmed Last Taken Type atorvastatin 40 mg tablet 40 mg PO DAILY@05/03/20 12/05/20 Unknown History insulin aspart U-100 100 unit/mL See Rx Instructions .ROUTE 05/03/20 12/05/20 Unknown History (3 mL) subcutaneous pen .COMPLEX ml insulin detemir U-100 100 unit/mL See Rx Instructions .ROUTE 05/03/20 12/05/20 Unknown History (3 mL) subcutaneous pen .COMPLEX ml lisinopril 2.5 mg tablet 2.5 mg PO DAILY@05/03/20 12/05/20 Unknown History metolazone 5 mg tablet 5 mg PO DAILY 05/03/20 12/05/20 Unknown History potassium chloride 20 mEq 20 meq PO BID@08,20 tab 05/03/20 12/05/20 Unknown History tablet,extended release bupropion HCl 150 mg tablet,12 hr 150 mg PO BID #60 tab 09/17/20 12/05/20 Unknown Rx sustained-release furosemide 40 mg tablet 40 mg PO DAILY #30 tab 11/28/20 12/05/20 Unknown Rx aspirin 81 mg tablet,delayed 81 mg PO DAILY@08 11/29/20 12/05/20 Unknown History release clopidogrel 75 mg tablet 75 mg PO DAILY@08 11/29/20 12/05/20 Unknown History gabapentin 400 mg capsule 400 mg PO TID 30 Days #90 cap 11/29/20 12/05/20 Unknown Rx oxycodone-acetaminophen 5 mg-325 1 tab PO DAILY PRN 7 Days #7 tab 11/29/20 12/05/20 Unknown Rx mg tablet levofloxacin 500 mg tablet 500 mg PO DAILY 12/04/20 12/05/20 Unknown History acetaminophen [Tylenol Extra 1,500 mg PO PRN 12/05/20 12/05/20 Unknown History Strength] empagliflozin [Jardiance] 25 mg PO QAM 12/05/20 12/05/20 Unknown History oxycodone-acetaminophen [Percocet] 1 tab PO Q6H PRN 12/05/20 12/05/20 Unknown History silver [SilvaSorb] 1 applic TOPICAL DIRECTED 12/05/20 12/05/20 Unknown History sodium hypochlorite [Dakin's See Rx Instructions .ROUTE .COMPLEX 12/05/20 12/05/20 Unknown History Solution] Allergies Allergy/AdvReac Type Severity Reaction Status Date / Time Penicillins Allergy swelling Verified 12/04/20 22:13 phentermine [From Adipex-P] Allergy swelling Verified 12/04/20 22:13 Current Medications Current Medications Generic Name Dose Route Start Last Admin Trade Name Freq PRN Reason Stop Dose Admin Atorvastatin Calcium 40 mg 12/05/20 09:00 12/06/20 08:30 Atorvastatin 40 Mg Tablet PO 40 mg DAILY TIM Administration Bupropion HCl 150 mg 12/05/20 21:00 12/06/20 08:29 Bupropion Sr (12 Hr) 150 Mg Tablet PO 150 mg BID@0900,2100 TIM Administration Gabapentin 600 mg 12/06/20 09:00 03/04/21 16:05 Gabapentin 300 Mg Capsule PO 600 mg TID TIM Administration Sodium Chloride 1,000 mls @ 75 mls/hr 12/05/20 02:06 12/06/20 19:52 Sodium Chloride 0.9% IV 75 mls/hr .[id number] TIM Administration Aztreonam 2,000 mg/ Sodium 100 mls @ 200 mls/hr 12/05/20 12:00 12/06/20 13:55 Chloride IV Infused Q12H TIM Infusion Protocol Vancomycin/PEG/NADA/Lysine/Water 1,500 mg in 300 mls @ 150 mls/hr 12/05/20 16:00 12/06/20 19:55 Vancocin IV Infused Q12H TIM Infusion Insulin Aspart 0 unit 12/05/20 08:00 12/06/20 17:29 Insulin Aspart 100 Unit/1 Ml SUBCUT Not Given WM&BEDTIME TIM Protocol Morphine Sulfate 4 mg 12/05/20 04:18 12/06/20 15:25 Morphine 4 Mg/Ml Sdv 1 Ml IVP 4 mg Q4H PRN Administration SEVERE PAIN Oxycodone HCl 10 mg 12/05/20 21:00 12/06/20 08:29 Oxycodone 10 Mg Er (12 Hr) Tablet PO 10 mg BID@0900,2100 TIM Administration PFSH Acute PFSH: Medical History Anxiety Diabetic neuropathy DM type 2 (diabetes mellitus, type 2) Hyperlipidemia Hypertension PVD (peripheral vascular disease) Surgical History H/O hernia repair History of heart artery stent Hx of amputation of lesser toe Family History Sister Diabetes Mother Diabetes Father CAD (coronary artery disease) Social History Smoking and tobacco status: current every day smoker Second hand smoke exposure: Yes Vitals/I&O/Wt Last Vital Signs Temp 98.9 F 12/06/20 16:00 Pulse 110 H 12/06/20 16:00 Resp 17 12/06/20 16:00 BP 135/76 12/06/20 16:00 Pulse Ox 98 12/06/20 16:00 12/06/20 12/06/20 12/06/20 06:59 14:59 22:59 Intake Total 1303.75 / 3543.75 340 / 340 1300 / 1640 Output Total 800 / 2075 750 / 750 Balance 503.75 / 1468.75 -410 / -410 1300 / 890 Weight last 48 hrs Weight 247 lb Physical Exam Const: COMMON NORMALS: no acute distress and patient oriented x3 HENMT: COMMON NORMALS: oropharynx normal Neck/C-Spine: COMMON NORMALS: no JVD Resp: COMMON NORMALS: normal respiratory effort and clear to auscultation bilaterally AUSCULTATION: clear to auscultation bilaterally Cardio: COMMON NORMALS: no JVD, regular rhythm, S1 normal heart sound present, S2 normal heart sound present and No murmurs present (Cardio) RHYTHM: regular rhythm HEART SOUNDS: S1 normal heart sound present and S2 normal heart sound present GI: COMMON NORMALS: Normal to inspection, nondistended, normoactive bowel sounds present, Soft to palpation and non-tender PALPATION: Yes Soft to palpation Extremity: COMMON NORMALS: no joint enlargement and no pedal edema Neuro: COMMON NORMALS: patient oriented x3 and moves all extremities Skin: COMMON NORMALS: no rashes or lesions noted GENERAL SKIN EXAM: no rashes or lesions noted Data Micro: Micro: Microbiology 12/05/20 12:36 Gram Stain - Final Foot - #1 Tissue Culture - P reliminary Gram Negative R ods A&P Assessment and plan (1) Peripheral arterial disease: Status: Acute (2) Ulcer of right foot with necrosis of bone: Status: Acute (3) Critical lower limb ischemia: Status: Acute (4) Hypertension: Status: Acute (5) Hyperlipidemia: Status: Acute Patient has critical limb ischemia and severe peripheral artery disease especially on the right side. Both his femorofemoral and femoropopliteal bypasses are occluded. Interventional cardiology was consulted to assess for potential revascularization of right lower extremity vasculature for healing of right foot amputation. We will also determine the extent of amputation needed. I would procedure will be for revascularization attempt for critical limb ischemia and limb salvage. Risks and benefits of the procedure have been described to the patient. Patient understands the risks including but not limited to bleeding, infection, compartm ent syndrome, amputation, renal function worsening or . Patient wants to proceed with the procedure. We will plan for peripheral angiogram with possible intervention for tomorrow. N.p.o. past midnight. Thank you for involving us with the care of this patient. We will continue to follow. Please call with questions. 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
[2020-12-06] MEDS: aspirin 81 mg EC Tablet PO (20:19)
[2020-12-06] MEDS: clopidogrel 75 mg Tablet PO (20:19)
--- NOTE | 2020-12-06 22:27 | P.PN_ITS ---
Subjective Subjective: Interval history: He states overall he is doing all right. Leg pain feels perhaps slightly better currently, although anticipates it might get worse again in the evening. Says he has been bothered by the pain for some time. Does state there was some temporary improvement after femoropopliteal bypass. States that he had very poor healing after last toe amputation. Vitals/I&O/Wt Last Vital Signs Temp 98.9 F 12/06/20 20:00 Pulse 115 H 12/06/20 20:00 Resp 18 12/06/20 20:20 BP 130/88 12/06/20 20:00 Pulse Ox 95 12/06/20 20:00 12/06/20 12/06/20 12/06/20 06:59 14:59 22:59 Intake Total 1303.75 / 3543.75 340 / 340 1300 / 1640 Output Total 800 / 2075 750 / 750 Balance 503.75 / 1468.75 -410 / -410 1300 / 890 Physical Exam Const: COMMON NORMALS: no acute distress and patient oriented x3 HENMT: COMMON NORMALS: oropharynx normal Neck/C-Spine: COMMON NORMALS: no JVD Resp: COMMON NORMALS: normal respiratory effort and clear to auscultation bilaterally AUSCULTATION: clear to auscultation bilaterally Cardio: COMMON NORMALS: no JVD, regular rhythm, S1 normal heart sound present, S2 normal heart sound present and No murmurs present (Cardio) RHYTHM: regular rhythm HEART SOUNDS: S1 normal heart sound present and S2 normal heart sound present GI: COMMON NORMALS: Normal to inspection, nondistended, normoactive bowel sounds present, Soft to palpation and non-tender PALPATION: Yes Soft to palpation Extremity: COMMON NORMALS: no joint enlargement and no pedal edema Neuro: COMMON NORMALS: patient oriented x3 and moves all extremities Skin: COMMON NORMALS: no rashes or lesions noted GENERAL SKIN EXAM: no rashes or lesions noted Data : 12/06/20 02:20 12/06/20 02:20 Micro: Microbiology 12/05/20 12:36 Gram Stain - Final Foot - #1 Tissue Culture - Preliminary Gram Negative Rods A&P Assessment and plan (1) PVD (peripheral vascular disease): Additional assessment today by CTA aorta with runoff. Renal function noted better today. Discussed with him and his , as well as with podiatry and interventional cardiology. Appears in addition to left side PAD has occluded right side femoropopliteal and femorofemoral bypass. He had bleeding yesterday, but this appears to have improved. Discussed with podiatry, okay to resume aspirin, Plavix. Discussed with him and his . He and his are okay to consulting cardiology. With amount of bleeding he had yesterday, it does appear he may have functional collaterals, however, with poor healing during last amputation ensuring adequate perfusion is needed. Discussed with him also cessation of smoking. He states that he is quitting and has pretty much quit. He states he understands the importance of smoking cessation to wound healing, as well as peripheral artery disease with risk of loss of further tissue, amputation, in addition to other cardiovascular comorbidities. Status: Acute (2) Ulcer of right foot with necrosis of bone: Status post partial foot amputation. Pending closure. Additional management of PAD as above. Continue IV antibiotics. Status: Acute (3) Diabetic neuropathy: Status: Acute Qualifiers: Diabetes mellitus type: type 2 Diabetes mellitus complication detail: diabetic polyneuropathy Qualified Code(s): E11.42 - Type 2 diabetes mellitus with diabetic polyneuropathy (4) Right great toe amputee: Status: Acute (5) DM type 2 (diabetes mellitus, type 2): Status: Acute Qualifiers: Diabetes mellitus correction insulin use: with reserve operator use Diabetes mellitus complication status: with circulatory complication Diabetes mellitus complication detail: with peripheral angiopathy with gangrene Qualified Code(s): E11.52 - Type 2 diabetes mellitus with diabetic peripheral angiopathy with gangrene; Z79.4 - [facility] (current) use of insulin (6) Smoking addiction: Encourage cessation as continued smoking will be detrimental to healing of the wounds in his lower extremity. Status: Acute Attestations Medical Necessity Statement*: Continue admission is necessary for assessment and management of nonhealing right foot wound, failed outpatient management, delayed primary closure of partial amputation due to foot gangrene and osteomyelitis, assessment management of severe PAD with occluded femorofemoral and femoropopliteal grafts. 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
[2020-12-07] VITALS (41 sets, daily range): BP systolic 80–120; BP diastolic 58–95; PULSE 97–138; RESP 3–29; TEMP 37.1–37.3; O2SAT 90–100
[2020-12-07] MEDS: morphine 4 mg/mL SDV 1 mL IVP ×3 (02:16→18:27)
[2020-12-07 02:56] LABS: Basophils % 0.4 %; Eosinophils # 0.1 10^3/uL (0.0-0.8); Eosinophils % 1.3 %; Hematocrit 41.9 % (42.0-52.0); Hemoglobin 14.1 g/dL (11.7-16.6); Lymphocytes # 2.3 10^3/uL (0.8-4.8); Lymphocytes % 23.8 %; Mean Corpuscular HGB Conc 33.7 g/dL (30.0-36.0); Mean Corpuscular Volume 83.3 fL (80-94); Mean Platelet Volume 9.5 fL (7.4-10.4); Monocytes % 10.8 %; Neutrophils # 6.07 10^3/uL (1.8-7.7); Neutrophils % 63.4 %; Nucleated Red Blood Cells % 0 %; Platelet Count 273 10^3/cmm (130-400); Red Blood Count 5.03 10^6/uL (4.1-5.3); Red Cell Distribution Width 15.3 % (12.1-15.1); White Blood Count 9.6 10^3/uL (4.0-10.0)
[2020-12-07 03:20] LABS: Blood Urea Nitrogen 16 mg/dL (6-20); Calcium 8.9 mg/dL (8.5-10.5); Carbon Dioxide 23 mmol/L (22-29); Chloride 98 mmol/L (98-107); Glomerular Filtration Rate 103.2 mL/min (90-130); Glucose 121 mg/dL (65-115); Osmolality Calculated 276 mOsm/kg (285-295); Sodium 132 mmol/L (136-145)
[2020-12-07 03:23] LABS: Vancomycin Trough 13.4 ug/mL (10-15)
[2020-12-07] MEDS: vancomycin 1,500 MG/300 ML PIGGYBACK 150 MG IV ×2 (05:10→18:59)
[2020-12-07 07:12] LABS: Glucose Point of Care 137 mg/dL (70-110)
[2020-12-07] MEDS: aspirin 81 mg EC Tablet PO (09:27)
[2020-12-07] MEDS: atorvastatin 40 mg Tablet PO (09:28)
[2020-12-07] MEDS: buPROPion SR (12 HR) 150 mg Tablet PO ×2 (09:28→21:27)
[2020-12-07] MEDS: gabapentin 300 mg Capsule 600 MG PO ×2 (09:28→21:02)
[2020-12-07] MEDS: oxyCODONE 10 mg ER (12 HR) Tablet PO ×2 (09:28→21:03)
[2020-12-07] MEDS: clopidogrel 75 mg Tablet PO (09:28)
--- NOTE | 2020-12-07 09:56 | PC.NURSE ---
PT REFUSES FOR STAFF TO SHAVE HIM FOR HIS PROCEDURE, HE WANTS TO SHAVE HIM.
--- NOTE | 2020-12-07 10:28 | PC.SOCIAL ---
IMM Update Pg.2 of IMM updated and reviewed with patient who verbalized understanding. Copy provided.
--- NOTE | 2020-12-07 13:00 | P.PN_ITS ---
Subjective Subjective: Interval history: Mr. Balbuena is 2 days status post right transmetatarsal amputation secondary to osteomyelitis. He endorses pain to the right lower extremity. Patient denies any subjective nausea, vomiting, fever, chills, shortness of breath or chest pain. His is bedside giving him a bath, he is n.p.o. for a vascular procedure. Vitals/I&O/Wt Last Vital Signs Temp 98.8 F 12/07/20 11:13 Pulse 118 H 12/07/20 11:13 Resp 18 12/07/20 11:33 BP 101/65 12/07/20 11:13 Pulse Ox 94 12/07/20 11:33 12/06/20 12/07/20 12/07/20 22:59 06:59 14:59 Intake Total 1300 / 1640 100 / 1740 300 / 300 Output Total 1125 / 1875 Balance 1300 / 890 -1025 / -135 300 / 300 Physical Exam Narrative: EXAM NARRATIVE: Patient is alert and oriented ?3 and in no acute distress. The following is a focused bilateral lower extremity exam. VASCULAR: Dorsalis pedis faintly palpable posterior tibial arteries faintly palpable. Capillary refill time less than 5 seconds left distal hallux and right fourth toe. Calf is supple and nontender proximally and distally. Decreased pedal hair bilaterally. NEUROLOGICAL: Protective sensation intact 0/10 sites, tested with [place]o monofilament to bilateral feet. DERMATOLOGICAL: Retention sutures intact at the transmetatarsal amputation site. The plantar flap is developing a bowman undertone and a mild maceration, viability is questionable will continue to monitor. Improved erythema and cellulitis of the right lower extremity. No purulent drainage noted. MUSCULOSKELETAL: No pain with posterior calf squeeze. Able to dorsiflex and plantarflex ankle. 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 Balbuena is a 50-year-old diabetic male with peripheral arterial disease, currently has open wound exposed to bone with gangrenous changes at right forefoot. 2 days status post right transmetatarsal mutation left open has retention sutures and sterile dressing left intact. -Recommend vascular referral for work-up of lower extremity arterial disease this will be a priority for limb salvage -Recommend infectious disease consultation -Patient to remain nonweightbearing to the right lower extremity and elevate right lower extremity all times while resting. -Podiatry will follow. Planning on primary delayed closure should vascular status improve and have healing potential if not will require higher level of amputation more than likely. 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
--- NOTE | 2020-12-07 13:12 | PC.NURSE ---
AT APPROX 1310 PT WAS TAKEN THE INFRASTRUCTURE DEVELOPER FOR HIS PROCEDURE
--- NOTE | 2020-12-07 13:19 | XACV_ITS ---
Ht: 180 cm Wt: 112 kg BSA: 2.41 m2 Any Known Allergies: Other Gender: Male : 1970 Exam Type: Invasive Peripheral Vascular Procedure(s): Procedure Description: Peripheral vascular Intervention Procedure Description: Peripheral angiogram Procedure Description: Balloon angioplast/stent placement Exam Priority: Routine Abdominal Diagnostic Findings No significant stenosis noted in the distal aorta. Lower Extremity Diagnostic Findings Right common iliac artery:Patent, Distal vessel has disease Right external iliac artery:Occluded with collaterals noted Right internal iliac artery: Occluded Right common femoral artery:Occluded, has collateral vessels noted around it Right profunda femoris:Filled by collaterals Right AT:Occluded Right PT/peroneal:Patent with disease. Filled by collaterals. TP segment has a stent that is occluded Patient has a continuous graft from left femoral artery to right femoral artery that extends then down to the popliteal artery. Graft is totally occluded. Left common iliac artery: Patent Left external iliac artery: Patent Left internal iliac artery: Patent Left common femoral artery: Patent Proximal Left SFA: Patent Left profunda artery: Patent Below the knee vessels were not injected. Lower Extremity Interventional Findings We obtained access in the left common femoral artery. Abdominal angiogram was performed with a UF catheter. After abdominal angiogram, we decided to switch axis to right PT. Ultrasound guidance was used to obtain access in the right posterior tibial artery. Using 0.035 Glidewire and a seeker support catheter, we were able to navigate from distal TP segment stent into the femoropopliteal and femorofemoral graft and exited with the Glidewire into left common femoral artery. We then performed balloon angioplasty of the continuous Fem/fem/ fem pop bypass graft with a 6.3u638oy balloon. This was follow by balloon angioplasty of the TP segment with a 3.0x40mm Balloon. We then placed 7x60 and 6x50mm Zilver ELISABETH at the origin of the fem/fem bypass graft. These were post dilated with a 7.00 x100mm balloon. Flow could not be restored in the graft. Conclusions Occluded fem-fem and fem-pop bypass graft. Balloon angioplasty of the graft and zilver ELISABETH X 2 placed in the graft. Unsuccessful in restoring flow. Right external iliac occluded. Right lower extremity supplied by collaterals. 2 vessel runoff to ankle with PT and Peroneal artery patent. AT is occluded. Recommendations Will discuss case with Vascular surgery in [place]. If has any surgical options available, will be referred there. Hemodynamic Data Phase:Rest AO : 125.0 / 73.0 ( 88.0 ) @ 8:26:00 AM Access Site Site: Left Femoral artery Sheath Size: 6 Fr Hemost... Method: Suture Hemost... Success: Successful Site: Right Popliteal Sheath Size: 6 Fr Hemost... Method: TR Band Hemost... Success: Successful Procedure Details Findings Procedure Consent Obtained. Pre-Procedure Time Out. Identified patient by full name and date of as verbalized by the patient/guarantor. Does the consent match the physician's order: Yes. Accurate & Complete Informed Consent: Yes. Inpatient/Outpatient History & Physical on Chart: Yes. If H&P is completed, is and addenduem needed: N/A; If yes, is the addendum complete: N/A. Visualize and Verify Site with Patient/Guarantor: N/A. Relevant Radiology Images available: N/A. Pre-op teaching completed and patient verbalized understanding. The risks, benefits, and alternatives of sedation and/or procedure were discussed by physician. The patient agrees to continue. Procedure started. Correct patient, site and procedure confirmed by cath team. IV Site on Arrival: 18 gauge in the left forearm. IV Site on Arrival: 20 gauge in the right anticubital. Oxygen started at 2liters/min via nasal canula. Physician notified. Baseline sample Acquired. HR: 117 BPM. Physician arrived. Physician scrubbed in. Immediate Pre-Procedure Time Out. Correct Patient: Yes; Correct Procedure: Yes; Correct Site: Yes; Correct Patient Position: Yes; Correct Supplies: Yes; Dried Flammable Prep: Yes; Blood Products Available: No;. Lidocaine 1% infiltrated to the left groin. Arterial access obtained with micropuncture set. bilateral groins was prepped with chloroprep then draped in the usual sterile fashion. A 5FrFr UF catheter in over wire. Abdominal aortogram performed in AP @ 10 mL/sec for a total of 30 mL. glidewire inserted. UF pulled back to biforcation. glidewire out. Right leg runoff 10mL for a total of 30mL. Side port of sheath attached to Normal Saline flush at KVO to maintain patency. ultra sound tech arrived. performing ultra sound. Lidocaine 1% infiltrated to the Right posterior tibial region. Arterial access obtained. Dr. Sanabria scrubbed in. glidewire inserted into the post tibial artery. Trailblazer catheter inserted over the wire. glidewire out. handinjection performed. handinjection performed. going in with glidewire through the seeker. seeker advanced through graft. seated in the common femoral. glidewire inserted. seeker out. Inflation number : 1 A AB Termo 35 DINKEY OPERATOR Catheter [id number] was prepped and advanced across the graft to PT trunk , then inflated to 4 JESUS for 1:48 seconds. Inflation number: 2 The AB Termo 35 DINKEY OPERATOR Catheter [id number] was reinflated across the Graft to PT trunk, to 4 JESUS for 1:34 seconds. Inflation number: 3 The AB Termo 35 DINKEY OPERATOR Catheter [id number] was reinflated across the Graft to the PT trunk, to 4 JESUS for 1:04 seconds. Inflation number: 4 The AB Termo 35 DINKEY OPERATOR Catheter [id number] was reinflated across the graft to the PT trunk, to 6 JESUS for 1:10 seconds. Balloon out over wire. family updated by Erik Botello RN. UF catheter is out. handinjection performed on left side. glidewire in SFA through graft. flushing sheath in groin and posterior tibial. Inflation number : 5 A AB ARMADA 14 OTW [id number] was prepped and advanced across the graft to pt trunk , then inflated to 6 JESUS for 1:44 seconds. Inflation number: 6 The AB ARMADA 14 OTW [id number] was reinflated across the graft to PT trunk, to 6 JESUS for 1:08 seconds. hand injection performed through the femoral sheath. Balloon out over wire. seeker inserted over the glidewire. hand injection performed. hand injection performed. handinjection performed. command wire inserted through the seeker. flushing femoral sheath. Flushing PT sheath. seeker out. doppled DP and PT. Inflation number : 1 A AB ARMADA 35 OTW [id number] was prepped and advanced across the Tibial Peroneal Trunk, Right , then inflated to 4 JESUS for 1:33 seconds. Inflation number: 2 The AB ARMADA 35 OTW [id number] was reinflated across the Tibial Peroneal Trunk, Right, to 8 JESUS for 0:56 seconds. Inflation number: 3 The AB ARMADA 35 OTW [id number] was reinflated across the Tibial Peroneal Trunk, Right, to 8 JESUS for 1:03 seconds. Balloon out. command wire out. hand injection performed. glidewire inserted through the seeker. 7mm by 60mm Zilver PTX drug-eluting peripheral stent proximal fem-fem graft lot#[id number]. [id number] Zilver PTX drug -eluting peripheral stent proximal fem-fem graft lot#[id number]. Inflation number : 4 A AB ARMADA 35 OTW [id number] was prepped and advanced across the Tibial Peroneal Trunk, Right , then inflated to 6 JESUS for 0:57 seconds. Inflation number: 5 The AB ARMADA 35 OTW [id number] was reinflated across the Tibial Peroneal Trunk, Right, to 6 JESUS for 1:02 seconds. Inflation number: 6 The AB ARMADA 35 OTW [id number] was reinflated across the Tibial Peroneal Trunk, Right, to 6 JESUS for 1:01 seconds. Balloon out. glide wire inserted into the femoral sheath. glidewire out of the PT sheath. Abdominal aortogram performed in AP @ 10 mL/sec for a total of 30 mL. hand injection performed in the PT sheath. catheter and wire out. Sheath(s) sutured into position with 2-0 silk and sterile 4x4's and Op-site applied over the site. No oozing or signs and symptoms of hematoma noted. TR band placed. Hemostasis obtained. Post Procedure: Pulses reassessed and unchanged. PERRLA. Strong, equal hand americanization teacher bilaterally. No VTE prophylaxis required. Medication's Wasted: Heparin = 3000 units. Total IV fluids: 250 mL. Contrast type used: Omnipaque 300 mgI/mL, 500 mL bottle. Contrast Material : Omnipaque 163 ml. A Suture was successful obtaining hemostatsis at the Left Femoral artery insertion site. A TR Band was successful obtaining hemostatsis at the Right Popliteal insertion site. Post-op diagnosis: severe PAD, and critical ischemia. Complications: none. Estimated blood loss: 5mL-10mL. Procedure completed. Admit Source: In Patient. Patient transferred by bed to 1st floor. Vital chart was stopped. Procedure Medications Start: 1:29 PM Stop: 1:29 PM Medication: Versed Amount: 1 mg Route: I.V. Start: 1:30 PM Stop: 1:30 PM Medication: Fentanyl Amount: 50 mcg Route: I.V. Start: 1:41 PM Stop: 1:41 PM Medication: Versed Amount: 1 mg Route: I.V. Start: 1:41 PM Stop: 1:41 PM Medication: Fentanyl Amount: 50 mcg Route: I.V. Start: 1:42 PM Stop: 1:42 PM Medication: Diphendryamine Amount: 50 mg Route: I.V. Start: 2:20 PM Stop: 2:20 PM Medication: Versed Amount: 1 mg Route: I.V. Start: 2:20 PM Stop: 2:20 PM Medication: Fentanyl Amount: 50 mcg Route: I.V. Start: 2:35 PM Stop: 2:35 PM Medication: Heparin Amount: 6000 units Route: I.V. Start: 2:55 PM Stop: 2:55 PM Medication: Versed Amount: 1 mg Route: I.V. Start: 2:55 PM Stop: 2:55 PM Medication: Fentanyl Amount: 50 mcg Route: I.V. Start: 3:44 PM Stop: 3:44 PM Medication: Heparin Amount: 5000 units Route: I.V. Start: 3:47 PM Stop: 3:47 PM Medication: Versed Amount: 2 mg Route: I.V. History/Risk Factors Hypertension: Yes Dyslipidemia: Yes Tobacco Use: Current/Recent(w/in 1 year) Report Signatures Finalized by Wilbert Nunez MD on 12/20/2020 06:11 PM
--- NOTE | 2020-12-07 13:38 | W.PM.OPSUD ---
Surgery/Procedure H&P Update DATE OF PROCEDURE: December 07, 2020 DATE H&P PERFORMED: 12/06/20 H&P UPDATE INFORMATION: I have reviewed H&P completed within last 30 days, I have examined patient prior to procedure and No changes to prior documentation PREOP DIAGNOSIS: Critical limb ischemia/Osteomyelitis right foot, gangrene right foot PRIMARY INDICATION FOR PROCEDURE: Critical limb ischemia PLANNED PROCEDURE: Operation Date: 12/07/20 13:30 Proposed Procedures p Peripheral Diagnostic 62006 I73.9(Not Applicable) - Wilbert Nunez M.D Possible peripheral intervention PATIENT REASSESSED PRIOR TO SEDATION, WITH NO CHANGE NOTED: Yes PHYSICAL EXAM: alert, oriented x 3 and clear to auscultation bilaterally AIRWAY EVAL/ANESTHESIA PLAN: normal airway, see other exam findings, Risks, benefits & alternatives of sedation and/or procedure discussed and Patient agrees to continue as planned
--- NOTE | 2020-12-07 13:59 | USCV_ITS ---
Phil Balbuena Age: 50 Gender: M : 1970 Exam Date: 12/07/2020 14:16 Ordering Phys: Wilbert Nunez M.D ([email or web address]) Technologist: Sandra Madison Exam Location: [facility] [place] Indication: ACCESS Findings Access guidance provided in bundle tier and labeler for right posterior artery. Conclusions Right posterior tibial artery was identified and was found to be patent. Dr Sae Leslie MD FAC (Electronically Signed) Final Date: 07 December 2020 16:47 S
[2020-12-07 14:33] LABS: Coronavirus Test Green County Not Detected
[2020-12-07 16:46] LABS: Glucose Point of Care 131 mg/dL (70-110)
--- NOTE | 2020-12-07 17:20 | ECG_ITS ---
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 Measurements Intervals Porter Rate: 137 P: GA: QRS: -47 QRSD: 133 T: 103 QT: 317 QTc: 480 Interpretive Statements ATRIAL FLUTTER/TACHYCARDIA WITH RAPID VENTRICULAR RESPONSE MARKED LEFT AXIS DEVIATION [QRS AXIS < -30] LEFT BUNDLE BRANCH BLOCK [120+ ms QRS DURATION, 80+ ms Q/S IN V1/V2, 85+ ms R IN I/aVL/V5/V6] No previous ECG available for comparison Electronically Signed On 12-07-2020 19:01:14 PUBLIC ADMINISTRATION PROFESSOR by Wilbert Nunez M.D. [email or web address]
--- NOTE | 2020-12-07 18:29 | PC.NURSE ---
spoke with DR ronquillo with concerns of patient vanc delayed due to procedure ok to give now clarified orders for NS instructions to run NS at 100ml per hour. Sheath removal obtain PTT if >45 pull sheath Spoke with Dr. Dupree with concerns of patients elevated HR instructions given to obtain EKG and give metoprolol 5mg IVP
[2020-12-07] MEDS: metoprolol tartrate 1 mg/1 mL SDV 5 mL 5 MG IV (18:43)
[2020-12-07] MEDS: sodium chloride 0.9% 1,000 ML 100 ML IV (18:43)
--- NOTE | 2020-12-07 19:24 | P.PN_ITS ---
Subjective Subjective: Interval history: Patient is still complaining of right leg pain. Underwent peripheral angiography Vitals/I&O/Wt Last Vital Signs Temp 98.8 F 12/07/20 11:13 Pulse 118 H 12/07/20 11:13 Resp 18 12/07/20 18:27 BP 101/65 12/07/20 11:13 Pulse Ox 94 12/07/20 11:33 12/07/20 12/07/20 12/07/20 06:59 14:59 22:59 Intake Total 100 / 1740 300 / 300 1120 / 1420 Output Total 1125 / 1875 600 / 600 Balance -1025 / -135 300 / 300 520 / 820 Physical Exam Const: COMMON NORMALS: no acute distress and patient oriented x3 HENMT: COMMON NORMALS: oropharynx normal Neck/C-Spine: COMMON NORMALS: no JVD Resp: COMMON NORMALS: normal respiratory effort and clear to auscultation b ilaterally AUSCULTATION: clear to auscultation bilaterally Cardio: COMMON NORMALS: no JVD, regular rhythm, S1 normal heart sound present, S2 normal heart sound present and No murmurs present (Cardio) RHYTHM: regular rhythm HEART SOUNDS: S1 normal heart sound present and S2 normal heart sound present GI: COMMON NORMALS: Normal to inspection, nondistended, normoactive bowel sounds present, Soft to palpation and non-tender PALPATION: Yes Soft to palpation Extremity: COMMON NORMALS: no joint enlargement and no pedal edema NARRATIVE EXTREMITY EXAM: Right foot has dressing on Neuro: COMMON NORMALS: patient oriented x3 and moves all extremities Skin: COMMON NORMALS: no rashes or lesions noted GENERAL SKIN EXAM: no rashes or lesions noted Data : 12/08/20 05:01 12/08/20 05:01 Micro: Microbiology 12/05/20 12:36 Gram Stain - Final Foot - #1 Tissue Culture - Preliminary Escherichia coli A&P Assessment and plan (1) Peripheral arterial disease: Status: Acute (2) Ulcer of right foot with necrosis of bone: Status: Acute (3) Critical lower limb ischemia: Status: Acute (4) Hypertension: Status: Acute (5) Hyperlipidemia: Status: Acute (6) Paroxysmal atrial fibrillation with RVR: Status: Acute Patient has critical limb ischemia and severe peripheral artery disease especially on the right side. After CTA, we decided to proceed with revascularization attempt. Abdominal angiogram showed right external iliac was occluded with collateral flow downstream. We then obtained access in the right PT and navigated through the grafts to put the glide wire in the left femoral artery. Below the knee patient has PT and peroneal arteries patent. Inflow of the graft at the left femoral artery was occluded that we attempted to revascularize with balloon angioplasty and Zilver stent, but flow could not be restored. Will recommend vascular surgery opinion for possible repeat bypass grafting For atrial fibrillation, can give cardizem. Patient should ideally be on anticoagulation but his foot has not been closed yet. Initiate once OK per podiatry Thank you for involving us with the care of this patient. We will continue to follow. Please call with questions. Attestations Medical Necessity Statement*: Care expected to cross 2 midnights. Coding Level of Care Code Acute Wood Machinist Apprentice for Lisandro Keita Diagnoses Peripheral arterial disease I73.9 Ulcer of right foot with necrosis of bone L97.514 Critical lower limb ischemia I99.8 Hypertension I10 Hyperlipidemia E78.5 Paroxysmal atrial fibrillation with RVR I48.0
--- NOTE | 2020-12-07 19:38 | P.PN_ITS ---
Subjective Subjective: Interval history: He is having pain in his right lower extremity, but otherwise is doing all right. Denies trouble breathing. Denies chest pain. Vitals/I&O/Wt Last Vital Signs Temp 98.8 F 12/07/20 11:13 Pulse 97 12/07/20 19:00 Resp 21 H 12/07/20 19:00 BP 111/80 12/07/20 19:00 Pulse Ox 99 12/07/20 16:45 12/07/20 12/07/20 12/07/20 06:59 14:59 22:59 Intake Total 100 / 1740 300 / 300 1120 / 1420 Output Total 1125 / 1875 600 / 600 Balance -1025 / -135 300 / 300 520 / 820 Physical Exam Const: COMMON NORMALS: no acute distress and patient oriented x3 HENMT: COMMON NORMALS: oropharynx normal Neck/C-Spine: COMMON NORMALS: no JVD Resp: COMMON NORMALS: normal respiratory effort and clear to auscultation bilaterally AUSCULTATION: clear to auscultation bilaterally Cardio: COMMON NORMALS: no JVD, regular rhythm, S1 normal heart sound present, S2 normal heart sound present and No murmurs present (Cardio) RHYTHM: regular rhythm HEART SOUNDS: S1 normal heart sound present and S2 normal heart sound present GI: COMMON NORMALS: Normal to inspection, nondistended, normoactive bowel sounds present, Soft to palpation and non-tender PALPATION: Yes Soft to palpation Extremity: COMMON NORMALS: no joint enlargement and no pedal edema Neuro: COMMON NORMALS: patient oriented x3 and moves all extremities Skin: COMMON NORMALS: no rashes or lesions noted GENERAL SKIN EXAM: no rashes or lesions noted Data : 12/07/20 02:46 12/07/20 02:46 Micro: Microbiology 12/05/20 12:36 Gram Stain - Final Foot - #1 Tissue Culture - Preliminary Escherichia coli A&P Assessment and plan (1) Paroxysmal atrial fibrillation with RVR: Heart rates in 130s-140s. LBBB noted although metoprolol should still be safe per discussion with cardiology. Partial response to 5 mg IV metoprolol, heart rates down to ~112. Start metoprolol 25 mg twice daily. Monitor on telemetry on CSU. Would benefit from initiation of anticoagulation if deemed safe alongside Plavix. Discussed with him. He states in the past used to be on Brilinta, and this was discontinued in preparation for the first surgery, then because he switched surgery teams, appears was not resumed after surgery and so he has not had it since. He would be agreeable to resuming anticoagulation after discussion of risks and benefits. Status: Acute (2) PVD (peripheral vascular disease): Status post peripheral angiography today. Attempt was made to reopen down the grafts. Unfortunately from what I understand despite 2 different approaches, grafts could not be reopened. Discussed this with podiatry, as well as patient. Recommendation would be to seek additional reassessment with vascular surgery regarding additional revascularization options. He prefers to do so at [place] with the vascular surgery team that performed the surgery. At this time he does have more distal flow from collaterals and per discussion with cardiology and podiatry wound should be able to be closed with vascular surgery follow-up arranged after discharge. Due to A. diamante, podiatry will also confirm if there are any issues on anesthesia side regarding initiation of anticoagulation alongside Plavix, with discontinuation of aspirin. Status: Acute (3) Ulcer of right foot with necrosis of bone: Due to poor wound healing, recurrent lower extremity infections, in the s etting of diabetes, peripheral arterial disease with occluded femorofemoral and femoropopliteal grafts, high risk of reinfection, pending wound closure, for now continue IV antibiotics. Wound culture growing E. coli sensitive to aztreonam. Continue empiric vancomycin coverage. Status: Acute (4) Diabetic neuropathy: Status: Acute Qualifiers: Diabetes mellitus type: type 2 Diabetes mellitus complication detail: diabetic polyneuropathy Qualified Code(s): E11.42 - Type 2 diabetes mellitus with diabetic polyneuropathy (5) Right great toe amputee: Status: Acute (6) DM type 2 (diabetes mellitus, type 2): Status: Acute Qualifiers: Diabetes mellitus supervisor intermediates insulin use: with longterm use Diabetes mellitus complication status: with circulatory complication Diabetes mellitus complication detail: with peripheral angiopathy with gangrene Qualified Code(s): E11.52 - Type 2 diabetes mellitus with diabetic peripheral angiopathy with gangrene; Z79.4 - snf (current) use of insulin (7) Smoking addiction: States that he still gets exposed to secondhand smoke from his , a lthough he has not smoked in 7-8 months himself. Encouraged to keep up cessation. Status: Acute Attestations Medical Necessity Statement*: Continue admission for assessment of management of Sasha bobby with RVR, status post partial foot amputation after nonhealing wound, gangrene, osteomyelitis, with underlying diabetes, peripheral artery disease with closed femorofemoral and femoropopliteal bypass which was done just in August, at high risk of poor wound healing, recurrent infection. Coding Level of Care Code Acute Pipe And Test Supervisor for Chg Fwd Diagnoses Paroxysmal atrial fibrillation with RVR I48.0 PVD (peripheral vascular disease) I73.9 Ulcer of right foot with necrosis of bone L97.514 Diabetic neuropathy E11.42 Diabetes mellitus type: type 2 Diabetes mellitus complication detail: diabetic polyneuropathy Right great toe amputee Z89.411 DM type 2 (diabetes mellitus, type 2) E11.52; Z79.4 Diabetes mellitus longterm insulin use: with longterm use Diabetes mellitus complication status: with circulatory complication Diabetes mellitus complication detail: with peripheral angiopathy with gangrene Smoking addiction F17.200
[2020-12-07 20:17] LABS: Glucose Point of Care 174 mg/dL (70-110)
[2020-12-07 20:27] LABS: Partial Thromboplastin Time 40.8 SECONDS (23.9-36.7)
[2020-12-07] MEDS: ALPRAZolam 0.25 mg Tablet PO (21:02)
[2020-12-07] MEDS: metoprolol tartrate 25 mg Tablet PO (21:03)
[2020-12-07] MEDS: temazepam 15 mg Capsule PO (21:50)
[2020-12-08] VITALS (38 sets, daily range): BP systolic 92–129; BP diastolic 58–90; PULSE 67–117; RESP 4–98; TEMP 36.6–37; O2SAT 91–100
[2020-12-08] MEDS: aztreonam 2,000 MG in sodium chloride 0.9% (plus) 100 ML 200 MG IV ×2 (01:33→12:04)
[2020-12-08] MEDS: morphine 4 mg/mL SDV 1 mL IVP ×5 (01:34→20:47)
[2020-12-08] MEDS: vancomycin 1,500 MG/300 ML PIGGYBACK 150 MG IV ×2 (05:20→16:06)
[2020-12-08] MEDS: sodium chloride 0.9% 1,000 ML 100 ML IV (05:21)
[2020-12-08 05:45] LABS: Basophils # 0.1 10^3/uL (0.0-0.1); Basophils % 0.7 %; Eosinophils # 0.1 10^3/uL (0.0-0.8); Eosinophils % 1.2 %; Hematocrit 46.2 % (42.0-52.0); Hemoglobin 14.9 g/dL (11.7-16.6); Lymphocytes # 2.5 10^3/uL (0.8-4.8); Lymphocytes % 21.1 %; Mean Corpuscular HGB Conc 32.3 g/dL (30.0-36.0); Mean Corpuscular Hemoglobin 27.5 pg (28.0-34.0); Mean Corpuscular Volume 85.2 fL (80-94); Mean Platelet Volume 9.9 fL (7.4-10.4); Monocytes # 1.2 10^3/uL (0.2-0.9); Monocytes % 10.1 %; Neutrophils # 7.74 10^3/uL (1.8-7.7); Neutrophils % 66.6 %; Nucleated Red Blood Cells % 0 %; Platelet Count 303 10^3/cmm (130-400); Red Blood Count 5.42 10^6/uL (4.1-5.3); Red Cell Distribution Width 15.9 % (12.1-15.1); White Blood Count 11.6 10^3/uL (4.0-10.0)
[2020-12-08 06:13] LABS: Anion Gap 15.1 (5-19); Blood Urea Nitrogen 18 mg/dL (6-20); Calcium 8.9 mg/dL (8.5-10.5); Carbon Dioxide 24 mmol/L (22-29); Chloride 97 mmol/L (98-107); Glomerular Filtration Rate 103.2 mL/min (90-130); Glucose 130 mg/dL (65-115); Osmolality Calculated 278 mOsm/kg (285-295); Potassium 4.1 mmol/L (3.5-5.1); Sodium 132 mmol/L (136-145)
[2020-12-08 06:39] LABS: Glucose Point of Care 126 mg/dL (70-110)
--- NOTE | 2020-12-08 07:17 | P.PN_ITS ---
Subjective Subjective: Interval history: Mr. Balbuena is 3 days status post right transmetatarsal amputation secondary to osteomyelitis. He endorses pain to the right lower extremity. Patient denies any subjective nausea, vomiting, fever, chills, shortness of breath or chest pain. Vitals/I&O/Wt Last Vital Signs Temp 98.6 F 12/08/20 03:41 Pulse 85 12/08/20 06:00 Resp 17 12/08/20 05:45 BP 111/76 12/08/20 05:45 Pulse Ox 100 12/08/20 05:45 12/07/20 12/08/20 12/08/20 22:59 06:59 14:59 Intake Total 1570 / 1870 1000 / 2870 Output Total 1250 / 1250 Balance 320 / 620 1000 / 1620 Physical Exam 2 Narrative: EXAM NARRATIVE: Patient is alert and oriented ?3 and in no acute distress. The following is a focused bilateral lower extremity exam. VASCULAR: Dorsalis pedis faintly palpable posterior tibial arteries faintly palpable. Capillary refill time less than 5 seconds left distal hallux and right fourth toe. Calf is supple and nontender proximally and distally. Decreased pedal hair bilaterally. NEUROLOGICAL: Protective sensation intact 0/10 sites, tested with [place]uel[employer] monofilament to bilateral feet. DERMATOLOGICAL: Retention sutures intact at the transmetatarsal amputation site. The plantar flap is developing a bowman undertone and a mild maceration area of ischemic changes is at 12 o'clock position of the plantar flap and is circular 2 cm in diameter, viability is questionable will continue to monitor. Improved erythema and cellulitis of the right lower extremity. No purulent drainage noted. MUSCULOSKELETAL: No pain with posterior calf squeeze. Able to dorsiflex and plantarflex ankle. Further musculoskeletal exam deferred due to postoperative state Data : 12/08/20 05:01 12/08/20 05:01 Micro: Microbiology 12/05/20 12:36 Gram Stain - Final Foot - #1 Tissue Culture - Preliminary Escherichia coli A&P Assessment and plan (1) Ulcer of right foot with necrosis of bone: Status: Acute (2) Peripheral arterial disease: Status: Acute (3) Critical lower limb ischemia: Status: Acute (4) DM type 2 (diabetes mellitus, type 2): Status: Acute Qualifiers: Diabetes mellitus technician terminal and repeater insulin use: with technician terminal and repeater use Diabetes mellitus complication status: with circulatory complication Diabetes mellitus complication detail: with peripheral angiopathy with gangrene Qualified Code(s): E11.52 - Type 2 diabetes mellitus with diabetic peripheral angiopathy with gangrene; Z79.4 - residential (current) use of insulin (5) Status post transmetatarsal amputation of right foot: Status: Acute Mr. Balbuena is a 50-year-old diabetic male with peripheral arterial disease who is status post right transmetatarsal imitation secondary to gangrene. Date of operation 12/05/2020 -Quarter size area of ischemic changes to plantar flap, questionable perfusion at the level of the transmetatarsal amputation site -Anticoagulation per medicine team okay from podiatry standpoint, I do not believe that anticoagulation would be an issue should there be a primary delayed closure of the transmetatarsal amputation site next week. -Attempt at revascularization performed shows two-vessel runoff however there is still significant occlusion and recommendation for vascular surgery for possible repeat bypass graft. -Patient seems to have good insight on his current situation. Infection is well controlled at this time and the major underlying issue impeding healing is decreased blood flow, he is contemplating whether he would wish to pursue revascularization in efforts to heal the transmetatarsal amputation site versus a below-knee amputation. At this point his transmetatarsal amputation site only has retention sutures. Given the extent of infection during amputation I did not want to perform a primary closure, plans were to stage out a delayed closure of soft tissue is a minimal to this, this is still questionable at this time. Will reevaluate tomorrow. Attestations Medical Necessity Statement*: Gangrene right foot Coding Level of Care Code Acute Director Of Residential Services for [facility] Fwd Diagnoses Ulcer of right foot with necrosis of bone L97.514 Peripheral arterial disease I73.9 Critical lower limb ischemia I99.8 DM type 2 (diabetes mellitus, type 2) E11.52; Z79.4 Diabetes mellitus shelter insulin use: with shelter use Diabetes mellitus complication status: with circulatory complication Diabetes mellitus complication detail: with peripheral angiopathy with gangrene Status post transmetatarsal amputation of right foot Z89.431
--- NOTE | 2020-12-08 07:51 | PC.NURSE ---
2215. Sheath pulled and pressure held for 21 minutes after a one minute delay of slight bleeding at site but easily brought back under control. L groin site is soft and no s/s of hematoma present. Pulses palpable and dressing gauze pad with transparent film clean dry and intact with no oozing or bleeding noted. Patient is voicing continued pain with mild relief from morphine but not as much as he had with dilaudid. Patient eyes closed and appears to be resting after doses of morphine given. Discussed with oncoming day shift nurse in report. Patient alert and oriented X 4. Good support system at home with . Will continue to monitor and assist as needed following CPOC.
--- NOTE | 2020-12-08 08:19 | PC.NURSE ---
Dressing to Right foot surgical wound came loose and off of wound. Xeroform gauze left in place as it was intact and new 4x4 gauze placed for padding and Kerlex wrapped over dressing and Stretch gauze dressing placed over the top of that. Dressing clean dry and intact this am.
[2020-12-08] MEDS: aspirin 81 mg EC Tablet PO (09:22)
[2020-12-08] MEDS: atorvastatin 40 mg Tablet PO (09:22)
[2020-12-08] MEDS: oxyCODONE 10 mg ER (12 HR) Tablet PO (09:23)
[2020-12-08] MEDS: gabapentin 300 mg Capsule 600 MG PO ×3 (09:23→20:46)
[2020-12-08] MEDS: metoprolol tartrate 25 mg Tablet PO ×3 (09:25→20:47)
[2020-12-08] MEDS: clopidogrel 75 mg Tablet PO (09:25)
[2020-12-08] MEDS: buPROPion SR (12 HR) 150 mg Tablet PO ×2 (09:27→20:47)
[2020-12-08 11:07] LABS: Glucose Point of Care 141 mg/dL (70-110)
--- NOTE | 2020-12-08 15:48 | PM.PN ---
Subjective Subjective: Interval history: Status post unsuccessful attempt to revascularize right leg for osteomyelitis Vitals/I&O/Wt Last Vital Signs Temp 98.0 F 12/08/20 10:58 Pulse 104 H 12/08/20 10:58 Resp 18 12/08/20 10:58 BP 102/74 12/08/20 10:58 Pulse Ox 96 12/08/20 10:58 12/08/20 12/08/20 12/08/20 06:59 14:59 22:59 Intake Total 1100 / 2970 240 / 240 Output Total 1200 / 1200 Balance 1100 / 1720 -960 / -960 Physical Exam Narrative: EXAM NARRATIVE: GENERAL: Patient is alert, awake and oriented x3. NECK: No jugular vein distension. HEENT: No cyanosis. No icterus. No pallor. HEART: Regular S1 and S2. No murmur, rub or gallop. LUNGS: Clear to auscultate bilaterally. ABDOMEN: Soft, nontender and nondistended. Positive bowel sounds. No guarding, rebound or tenderness. CENTRAL NERVOUS SYSTEM: Grossly nonfocal. EXTREMITIES: Lower extremities with 1+ edema bilaterally. Right foot wrapped status post metatarsal amputation Data : 12/08/20 05:01 12/08/20 05:01 Micro: Microbiology 12/05/20 12:36 Gram Stain - Final Foot - #1 Tissue Culture - Final Escherichia coli A&P Assessment and plan (1) Peripheral arterial disease: Status: Acute (2) Ulcer of right foot with necrosis of bone: Status: Acute (3) Critical lower limb ischemia: Status: Acute (4) Hypertension: Status: Acute (5) Hyperlipidemia: Status: Acute (6) Paroxysmal atrial fibrillation with RVR: Status: Acute Status post unsuccessful attempt to revascularize. Recommend redo graft with help of vascular surgery. Patient says he will discuss with Dr. Frey for possible amputation of the leg rather surgery. We will standby for any help. Continue to follow-up with Dr. Frey Attestations Medical Necessity Statement*: Patient require continuation hospitalization for above defined care. Coding Level of Care Code Established Pt Acute Box Lining Machine Feeder for [facility] Fwd Patient Type Established History Expanded Problem Focused Exam Expanded Problem Focused Medical Decision Making Moderate Complexity Diagnoses Peripheral arterial disease I73.9 Ulcer of right foot with necrosis of bone L97.514 Critical lower limb ischemia I99.8 Hypertension I10 Hyperlipidemia E78.5 Paroxysmal atrial fibrillation with RVR I48.0
--- NOTE | 2020-12-08 16:27 | PC.NURSE ---
dr diop made rounds.pts hr increased to 120-130's (afib) while he was in room speaking to pt.he ordered to give pm metoprolol dose now..and cont to observe heart rate.he stated he may increase dose later today.
[2020-12-08 16:49] LABS: Glucose Point of Care 200 mg/dL (70-110)
--- NOTE | 2020-12-08 17:03 | PM.PN ---
Subjective Subjective: Interval history: He has been still bothered by pain in his right foot. For the most of the day his heart rates have remained around 105. It appears shortly before I had walked in the room heart rate jumped up and have been staying now around 135. Denies chest pain. Denies trouble breathing. Vitals/I&O/Wt Last Vital Signs Temp 98.0 F 12/08/20 10:58 Pulse 75 12/08/20 14:00 Resp 98 H 12/08/20 16:04 BP 102/74 12/08/20 10:58 Pulse Ox 97 12/08/20 16:04 12/08/20 12/08/20 12/08/20 06:59 14:59 22:59 Intake Total 1100 / 2970 540 / 540 Output Total 1200 / 1200 Balance 1100 / 1720 -660 / -660 Physical Exam Narrative: EXAM NARRATIVE: Visited by . Const: COMMON NORMALS: no acute distress and patient oriented x3 HENMT: COMMON NORMALS: oropharynx normal Neck/C-Spine: COMMON NORMALS: no JVD Resp: COMMON NORMALS: normal respiratory effort and clear to auscultation bilaterally AUSCULTATION: clear to auscultation bilaterally Cardio: COMMON NORMALS: no JVD, regular rhythm, S1 normal heart sound present, S2 normal heart sound present and No murmurs present (Cardio) RHYTHM: regular rhythm HEART SOUNDS: S1 normal heart sound present and S2 normal heart sound present GI: COMMON NORMALS: Normal to inspection, nondistended, normoactive bowel sounds present, Soft to palpation and non-tender PALPATION: Yes Soft to palpation Extremity: COMMON NORMALS: no joint enlargement and no pedal edema OTHER: s/p partial amputation of the distal R foot, no proximal swelling, erythema. Picture w/o dressing included in podiatry note. Neuro: COMMON NORMALS: patient oriented x3 and moves all extremities Skin: COMMON NORMALS: no rashes or lesions noted GENERAL SKIN EXAM: no rashes or lesions noted Data : 12/08/20 05:01 12/08/20 05:01 Micro: Microbiology 12/05/20 12:36 Gram Stain - Final Foot - #1 Tissue Culture - Final Escherichia coli A&P Assessment and plan (1) Paroxysmal atrial fibrillation with RVR: Heart rates are better today, for the most part staying around 105. Shortly before my visit appears to increased up to around 135 and persisted there. We will go ahead and advance his metoprolol dose to now. Reassess in the evening, if remains high may need additional 25 mg. He on and off continues to bothered by pain. This may be contributing to his tachycardia as well. We are adjusting his pain medication regimen. Continue telemetry monitoring. Podiatry and cardiology discussions with patient with regards to plan going forward including reassessment by vascular surgery at [place] where he had gotten his bypass, or consideration of additional amputation. Anticoagulation okay from podiatry perspective. Stop aspirin. We will start Lovenox. Would benefit from initiation of anticoagulation if deemed safe alongside Plavix. Discussed with him. He states in the past used to be on Brilinta, and this was discontinued in preparation for the first surgery, then because he switched surgery teams, appears was not resumed after surgery and so he has not had it since. He would be agreeable to resuming anticoagulation after discussion of risks and benefits. Status: Acute (2) PVD (peripheral vascular disease): Additional discussions ongoing as above with regards to further steps regarding PAD, occluded femorofemoral and femoropopliteal grafts. Status post peripheral angiography today. Attempt was made to reopen down the grafts. Unfortunately from what I understand despite 2 different approaches, grafts could not be reopened. Discussed this with podiatry, as well as patient. Recommendation would be to seek additional reassessment with vascular surgery regarding additional revascularization options. He prefers to do so at [place] with the vascular surgery team that performed the surgery. At this time he does have more distal flow from collaterals and per discussion with cardiology and podiatry wound should be able to be closed with vascular surgery follow-up arranged after discharge. Due to A. fib, podiatry will also confirm if there are any issues on anesthesia side regarding initiation of anticoagulation alongside Plavix, with discontinuation of aspirin. Status: Acute (3) Ulcer of right foot with necrosis of bone: Due to poor wound healing, recurrent lower extremity infections, in the setting of diabetes, peripheral arterial disease with occluded femorofemoral and femoropopliteal grafts, high risk of reinfection, pending wound closure, for now continue IV antibiotics until the wound is closed. Wound culture growing E. coli sensitive to aztreonam. Continue empiric vancomycin coverage. Status: Acute (4) Diabetic neuropathy: Status: Acute Qualifiers: Diabetes mellitus complication detail: diabetic polyneuropathy Diabetes mellitus type: type 2 Qualified Code(s): E11.42 - Type 2 diabetes mellitus with diabetic polyneuropathy (5) Right great toe amputee: Status: Acute (6) DM type 2 (diabetes mellitus, type 2): Status: Acute Qualifiers: Diabetes mellitus complication detail: with peripheral angiopathy with gangrene Diabetes mellitus complication status: with circulatory complication Diabetes mellitus computer terminal operator insulin use: with halfway use Qualified Code(s): E11.52 - Type 2 diabetes mellitus with diabetic peripheral angiopathy with gangrene; Z79.4 - terminal computer operator (current) use of insulin (7) Smoking addiction: States that he still gets exposed to secondhand smoke from his , although he has not smoked in 7-8 months himself. Encouraged to keep up cessation. Status: Acute Attestations Medical Necessity Statement*: Continue admission for optimization of control of atrial fibrillation with RVR, pending closure status post partial amputation of distal right foot, with continued IV antibiotics with previously nonhealing wounds in the setting of diabetes, peripheral arterial disease, with occluded recently placed femorofemoral and femoropopliteal grafts. Coding Level of Care Code Acute Air Traffic Coordinator for [facility] Fwd Exam Comprehensive Diagnoses Paroxysmal atrial fibrillation with RVR I48.0 PVD (peripheral vascular disease) I73.9 Ulcer of right foot with necrosis of bone L97.514 Diabetic neuropathy E11.42 Diabetes mellitus complication detail: diabetic polyneuropathy Diabetes mellitus type: type 2 Right great toe amputee Z89.411 DM type 2 (diabetes mellitus, type 2) E11.52; Z79.4 Diabetes mellitus complication detail: with peripheral angiopathy with gangrene Diabetes mellitus complication status: with circulatory complication Diabetes mellitus computer terminal operator insulin use: with halfway use Smoking addiction F17.200
[2020-12-08] MEDS: enoxaparin 120 mg/0.8 mL Syringe 110 MG SUBCUT (18:00)
[2020-12-08] MEDS: oxyCODONE 5 mg IR Tab/Cap 10 MG PO (18:16)
[2020-12-08 20:39] LABS: Glucose Point of Care 156 mg/dL (70-110)
[2020-12-08] MEDS: temazepam 15 mg Capsule PO (20:46)
[2020-12-08] MEDS: ALPRAZolam 0.25 mg Tablet PO (20:46)
[2020-12-08] MEDS: docusate sodium 100 mg Capsule PO (20:47)
[2020-12-09] VITALS (43 sets, daily range): BP systolic 90–107; BP diastolic 62–90; PULSE 72–122; RESP 10–29; TEMP 36.1–37.4; O2SAT 95–97
[2020-12-09] MEDS: oxyCODONE 5 mg IR Tab/Cap 10 MG PO ×5 (00:26→22:46)
[2020-12-09] MEDS: aztreonam 2,000 MG in sodium chloride 0.9% (plus) 100 ML 200 MG IV (00:27)
[2020-12-09] MEDS: morphine 4 mg/mL SDV 1 mL IVP ×3 (04:47→20:21)
[2020-12-09] MEDS: vancomycin 1,500 MG/300 ML PIGGYBACK 150 MG IV ×2 (04:47→16:11)
[2020-12-09] MEDS: enoxaparin 120 mg/0.8 mL Syringe 110 MG SUBCUT ×2 (04:48→18:53)
[2020-12-09 05:30] LABS: Basophils # 0.1 10^3/uL (0.0-0.1); Basophils % 0.9 %; Eosinophils # 0.3 10^3/uL (0.0-0.8); Eosinophils % 2.9 %; Hematocrit 41.9 % (42.0-52.0); Hemoglobin 13.7 g/dL (11.7-16.6); Lymphocytes # 2.9 10^3/uL (0.8-4.8); Lymphocytes % 27.2 %; Mean Corpuscular HGB Conc 32.7 g/dL (30.0-36.0); Mean Corpuscular Volume 85.7 fL (80-94); Monocytes # 1.1 10^3/uL (0.2-0.9); Monocytes % 10.5 %; Neutrophils # 6.12 10^3/uL (1.8-7.7); Neutrophils % 58.1 %; Nucleated Red Blood Cells % 0 %; Platelet Count 257 10^3/cmm (130-400); Red Blood Count 4.89 10^6/uL (4.1-5.3); Red Cell Distribution Width 15.6 % (12.1-15.1); White Blood Count 10.5 10^3/uL (4.0-10.0)
[2020-12-09 05:55] LABS: Blood Urea Nitrogen 20 mg/dL (6-20); Calcium 8.7 mg/dL (8.5-10.5); Carbon Dioxide 20 mmol/L (22-29); Chloride 100 mmol/L (98-107); Glomerular Filtration Rate 103.2 mL/min (90-130); Glucose 116 mg/dL (65-115); Magnesium 1.8 mg/dL (1.7-2.3); Osmolality Calculated 278 mOsm/kg (285-295); Sodium 132 mmol/L (136-145)
[2020-12-09 06:44] LABS: Glucose Point of Care 141 mg/dL (70-110)
[2020-12-09] MEDS: clopidogrel 75 mg Tablet PO (08:03)
[2020-12-09] MEDS: gabapentin 300 mg Capsule 600 MG PO ×3 (08:03→20:20)
[2020-12-09] MEDS: metoprolol tartrate 25 mg Tablet 50 MG PO (08:03)
[2020-12-09] MEDS: atorvastatin 40 mg Tablet PO (08:03)
[2020-12-09] MEDS: buPROPion SR (12 HR) 150 mg Tablet PO ×2 (09:04→20:22)
--- NOTE | 2020-12-09 09:04 | PC.SOCIAL ---
IMM Update Pg.2 of IMM Updated and reviewed with patient who verbalized understanding. Copy provided.
[2020-12-09 11:02] LABS: Glucose Point of Care 181 mg/dL (70-110)
[2020-12-09] MEDS: aztreonam 2,000 MG in sodium chloride 0.9% (plus) 100 ML 100 MG IV (12:02)
[2020-12-09 16:53] LABS: Glucose Point of Care 163 mg/dL (70-110)
--- NOTE | 2020-12-09 16:53 | PM.PN ---
Subjective Subjective: Interval history: Mild pain in the right foot. Denies otherwise any complaint. I have detailed discussion with the patient and his . They would like to consider for revascularization. We will send his film and records to Dr. Anderson. Further plan will be advised Vitals/I&O/Wt Last Vital Signs Temp 98.4 F 12/09/20 14:44 Pulse 110 H 12/09/20 14:44 Resp 16 12/09/20 16:52 BP 105/90 12/09/20 14:44 Pulse Ox 95 12/09/20 14:44 12/09/20 12/09/20 12/09/20 06:59 14:59 22:59 Intake Total 2360 / 4020 886.667 / 886.667 Output Total 800 / 800 Balance 2360 / 2170 86.667 / 86.667 Physical Exam Narrative: EXAM NARRATIVE: GENERAL: Patient is alert, awake and oriented x3. NECK: No jugular vein distension. HEENT: No cyanosis. No icterus. No pallor. HEART: Regular S1 and S2. No murmur, rub or gallop. LUNGS: Clear to auscultate bilaterally. ABDOMEN: Soft, nontender and nondistended. Positive bowel sounds. No guarding, rebound or tenderness. CENTRAL NERVOUS SYSTEM: Grossly nonfocal. EXTREMITIES: Lower extremities with 1+ edema bilaterally. Right foot wrapped status post metatarsal amputation Data : 12/09/20 04:25 12/09/20 04:25 Micro: Microbiology 12/05/20 12:36 Gram Stain - Final Foot - #1 Tissue Culture - Final Escherichia coli A&P Assessment and plan (1) Peripheral arterial disease: Status: Acute (2) Ulcer of right foot with necrosis of bone: Status: Acute (3) Critical lower limb ischemia: Status: Acute (4) Hypertension: Status: Acute (5) Hyperlipidemia: Status: Acute (6) Paroxysmal atrial fibrillation with RVR: Status: Acute We will send patient record to Dr. Sunny Anderson for the plan will be devised. Stable heart rate and blood pressure advised. Continue current regimen. Attestations Medical Necessity Statement*: Patient require continuation hospitalization for above defined care. Coding Level of Care Code Established Pt Acute Bar Machine Operator Production for [facility] Fwd Patient Type Established History Detailed Exam Detailed Medical Decision Making Moderate Complexity Diagnoses Peripheral arterial disease I73.9 Ulcer of right foot with necrosis of bone L97.514 Critical lower limb ischemia I99.8 Hypertension I10 Hyperlipidemia E78.5 Paroxysmal atrial fibrillation with RVR I48.0
--- NOTE | 2020-12-09 18:41 | PM.PN ---
Subjective Subjective: Interval history: Mr. Balbuena is 4 days status post right transmetatarsal amputation secondary to osteomyelitis. Transmetatarsal amputation site has retention sutures only this was not closed, this was left open for delayed closure due to extent of infection and need for further debridement. Patient denies any subjective nausea, vomiting, fever, chills, shortness of breath or chest pain. Vitals/I&O/Wt Last Vital Signs Temp 98.4 F 12/09/20 14:44 Pulse 110 H 12/09/20 14:44 Resp 16 12/09/20 16:52 BP 105/90 12/09/20 14:44 Pulse Ox 95 12/09/20 14:44 12/09/20 12/09/20 12/09/20 06:59 14:59 22:59 Intake Total 2360 / 4020 886.667 / 886.667 120 / 1006.667 Output Total 800 / 800 Balance 2360 / 2170 86.667 / 86.667 120 / 206.667 Physical Exam Narrative: EXAM NARRATIVE: Patient is alert and oriented ?3 and in no acute distress. The following is a focused bilateral lower extremity exam. VASCULAR: Dorsalis pedis faintly palpable posterior tibial arteries faintly palpable. Capillary refill time less than 5 seconds left distal hallux and right fourth toe. Calf is supple and nontender proximally and distally. Decreased pedal hair bilaterally. NEUROLOGICAL: Protective sensation intact 0/10 sites, tested with [place] [employer]uelo monofilament to bilateral feet. DERMATOLOGICAL: Retention sutures intact at the transmetatarsal amputation site. The plantar flap is developing more expansive bowman undertone and a mild maceration. Improved erythema and cellulitis of the right lower extremity. No purulent drainage noted. MUSCULOSKELETAL: No pain with posterior calf squeeze. Able to dorsiflex and plantarflex ankle. Further musculoskeletal exam deferred due to postoperative state Data : 12/09/20 04:25 12/09/20 04:25 A&P Assessment and plan (1) Ulcer of right foot with necrosis of bone: Status: Acute (2) Peripheral arterial disease: Status: Acute (3) Critical lower limb ischemia: Status: Acute (4) DM type 2 (diabetes mellitus, type 2): Status: Acute Qualifiers: Diabetes mellitus termite exterminator helper insulin use: with care home use Diabetes mellitus complication status: with circulatory complication Diabetes mellitus complication detail: with peripheral angiopathy with gangrene Qualified Code(s): E11.52 - Type 2 diabetes mellitus with diabetic peripheral angiopathy with gangrene; Z79.4 - correction (current) use of insulin (5) Status post transmetatarsal amputation of right foot: Status: Acute Mr. Balbuena is a 50-year-old diabetic male with peripheral arterial disease who is status post right transmetatarsal imitation secondary to gangrene. Date of operation 12/05/2020, amputation site not closed to the extent of infection and need for repeat debridement, this was approximated with retention sutures with plans for delayed closure once soft tissue is amenable. -Further ischemic changes present at the plantar flap of transmetatarsal amputation site. Retention sutures intact. -I recommended referral to vascular surgery as patient's next best step, this would be beneficial in healing either level of amputation both transmetatarsal amputation site or even a below-knee amputation should it proceed to that level improve vascularity would be paramount in healing potential. -Dressing change performed to the right foot amputation site, no purulence, progressive ischemic changes of the plantar flap, there is no erythema or warmth. -Patient to remain nonweightbearing to the right lower extremity. Podiatry will follow. Attestations Medical Necessity Statement*: Gangrene right foot Coding Level of Care Code Acute Plater Helper for [facility] Fw Diagnoses Ulcer of right foot with necrosis of bone L97.514 Peripheral arterial disease I73.9 Critical lower limb ischemia I99.8 DM type 2 (diabetes mellitus, type 2) E11.52; Z79.4 Diabetes mellitus care home insulin use: with termite exterminator helper use Diabetes mellitus complication status: with circulatory complication Diabetes mellitus complication detail: with peripheral angiopathy with gangrene Status post transmetatarsal amputation of right foot Z89.431
[2020-12-09] MEDS: magnesium sulfate premix 2 GM/50 ML PIGGYBACK IV (18:53)
[2020-12-09 20:13] LABS: Glucose Point of Care 146 mg/dL (70-110)
--- NOTE | 2020-12-09 20:14 | P.PN_ITS ---
Subjective Subjective: Interval history: He states he is doing all right. Intermittently still bothered by the chronic pain and right lower extremity from about mid peacock down. Request for help with longer-term pain management. He anticipates to make additional decisions regarding further management possibly tomorrow after his case and images are reviewed with vascular surgery. Denies chest pain. No trouble breathing. Vitals/I&O/Wt Last Vital Signs Temp 98.1 F 12/09/20 19:59 Pulse 110 H 12/09/20 19:59 Resp 24 H 12/09/20 19:59 BP 107/81 12/09/20 19:59 Pulse Ox 96 12/09/20 19:59 12/09/20 12/09/20 12/09/20 06:59 14:59 22:59 Intake Total 2360 / 4020 940.000 / 940.000 420 / 1360.000 Output Total 800 / 800 Balance 2360 / 2170 140.000 / 140.000 420 / 560.000 Physical Exam Narrative: EXAM NARRATIVE: Visited by . Const: COMMON NORMALS: no acute distress and patient oriented x3 OTHER: Awake, alert, sitting up in bed. HENMT: COMMON NORMALS: oropharynx normal Neck/C-Spine: COMMON NORMALS: no JVD Resp: COMMON NORMALS: normal respiratory effort and clear to auscultation bilaterally AUSCULTATION: clear to auscultation bilaterally Cardio: COMMON NORMALS: no JVD, regular rhythm, S1 normal heart sound present, S2 normal heart sound present and No murmurs present (Cardio) RHYTHM: regular rhythm HEART SOUNDS: S1 normal heart sound present and S2 normal heart sound present GI: COMMON NORMALS: Normal to inspection, nondistended, normoactive bowel sounds present, Soft to palpation and non-tender PALPATION: Yes Soft to palpation Extremity: COMMON NORMALS: no joint enlargement and no pedal edema OTHER: s/p partial amputation of the distal R foot, dressed in clean dressing Neuro: COMMON NORMALS: patient oriented x3 and moves all extremities Skin: COMMON NORMALS: no rashes or lesions noted GENERAL SKIN EXAM: no rashes or lesions noted Data : 12/09/20 04:25 12/09/20 04:25 A&P Assessment and plan (1) Paroxysmal atrial fibrillation with RVR: Heart rate better, however, this morning blood pressure soft. Adjust metoprolol to 37.5 mg twice daily. Monitor blood pressures. Heart rate. Continue telemetry monitoring. Started Lovenox alongside Plavix, so far tolerating. In the past used to be on Brilinta, and this was discontinued in preparation for the first surgery, then because he switched surgery teams, appears was not resumed after surgery and so he has not had it since. Status: Acute (2) PVD (peripheral vascular disease): She has had an extensive discussion with cardiology today. Has been also discussing with podiatry. Cardiology will reach out with his case, images to vascular surgery. The patient hopes to be able to make an informed decision, possibly tomorrow regarding the next steps. Consideration has been given to additional vascular surgery intervention, as opposed to amputation. He is concerned about additional multiple procedures as he is concerned to exposure to additional complications. He is right now considering amputation very seriously. He would like to hear the opinion of vascular surgery. After discharge he requests to be referred to pain specialist due to chronic pain which he states his primary care provider has not been able to manage. Status post peripheral angiography today. Attempt was made to reopen down the grafts. Unfortunately from what I understand despite 2 different approaches, grafts could not be reopened. Discussed this with podiatry, as well as patient. Recommendation would be to seek additional reassessment with vascular surgery regarding additional revascularization options. He prefers to do so at [facility] with the vascular surgery team that performed the surgery. At this time he does have some distal flow from few collaterals. He is on Plavix. Aspirin discontinued as anticoagulation was added, for now with Lovenox, discharged with transition to p.o. anticoagulation for risk reduction for atrial fibrillation. Status: Acute (3) Ulcer of right foot with necrosis of bone: Due to poor wound healing, recurrent lower extremity infections, in the setting of diabetes, peripheral arterial disease with occluded femorofemoral and femoropopliteal grafts, high risk of reinfection, pending wound closure, for now continue IV antibiotics until the wound is closed. Wound culture growing E. coli sensitive to aztreonam. Continue empiric vancomycin coverage. 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 Encouraged to keep up cessation. Status: Acute Attestations Medical Necessity Statement*: Continue admission for position of control of A. fib with RVR, in the setting of soft blood pressures, additional plans regarding recurrent infections/wounds of right lower extremity with peripheral arterial disease with closed down femorofemoral and femoropopliteal grafts which were just done in August, underlying diabetes, high risk of relapse of infection, with continued IV antibiotics due to multiple relapse infections with gangrene, osteomyelitis despite prior amputations, wound debridements, skin grafting and other treatments. 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 [facility] Fwd Exam Comprehensive Diagnoses Paroxysmal atrial fibrillation with RVR I48.0 PVD (peripheral vascular disease) I73.9 Ulcer of right foot with necrosis of bone L97.514 Diabetic neuropathy E11.42 Diabetes mellitus complication detail: diabetic polyneuropathy Diabetes mellitus type: type 2 Right great toe amputee Z89.411 DM type 2 (diabetes mellitus, type 2) E11.52; Z79.4 Diabetes mellitus complication detail: with peripheral angiopathy with gangrene Diabetes mellitus complication status: with circulatory complication Diabetes mellitus care home insulin use: with care home use Smoking addiction F17.200
[2020-12-09] MEDS: ALPRAZolam 0.25 mg Tablet PO (20:20)
[2020-12-09] MEDS: metoprolol tartrate 25 mg Tablet 37.5 MG PO (20:21)
[2020-12-09] MEDS: docusate sodium 100 mg Capsule PO (20:22)
[2020-12-09] MEDS: temazepam 15 mg Capsule PO (22:46)
[2020-12-10] VITALS (41 sets, daily range): BP systolic 78–107; BP diastolic 48–81; PULSE 74–116; RESP 7–26; TEMP 36.6–37.1; O2SAT 94–98
[2020-12-10] MEDS: aztreonam 2,000 MG in sodium chloride 0.9% (plus) 100 ML 100 MG IV (01:00)
[2020-12-10] MEDS: morphine 4 mg/mL SDV 1 mL IVP ×4 (02:37→18:09)
[2020-12-10] MEDS: vancomycin 1,500 MG/300 ML PIGGYBACK 150 MG IV (04:19)
[2020-12-10] MEDS: oxyCODONE 5 mg IR Tab/Cap 10 MG PO ×4 (04:26→20:55)
[2020-12-10] MEDS: enoxaparin 120 mg/0.8 mL Syringe 110 MG SUBCUT ×2 (04:27→17:58)
[2020-12-10 05:30] LABS: Basophils # 0.1 10^3/uL (0.0-0.1); Basophils % 0.9 %; Eosinophils # 0.4 10^3/uL (0.0-0.8); Eosinophils % 3.9 %; Hematocrit 36.9 % (42.0-52.0); Lymphocytes # 2.7 10^3/uL (0.8-4.8); Lymphocytes % 27.2 %; Mean Corpuscular HGB Conc 32.5 g/dL (30.0-36.0); Mean Corpuscular Hemoglobin 27.6 pg (28.0-34.0); Mean Corpuscular Volume 84.8 fL (80-94); Mean Platelet Volume 10.1 fL (7.4-10.4); Monocytes # 0.9 10^3/uL (0.2-0.9); Monocytes % 8.8 %; Neutrophils % 58.8 %; Nucleated Red Blood Cells % 0 %; Platelet Count 282 10^3/cmm (130-400); Red Blood Count 4.35 10^6/uL (4.1-5.3); Red Cell Distribution Width 15.5 % (12.1-15.1)
[2020-12-10 05:50] LABS: Anion Gap 12.7 (5-19); Blood Urea Nitrogen 20 mg/dL (6-20); Calcium 8.4 mg/dL (8.5-10.5); Carbon Dioxide 25 mmol/L (22-29); Chloride 100 mmol/L (98-107); Glomerular Filtration Rate 90.1 mL/min (90-130); Glucose 126 mg/dL (65-115); Magnesium 2.1 mg/dL (1.7-2.3); Osmolality Calculated 282 mOsm/kg (285-295); Potassium 3.7 mmol/L (3.5-5.1); Sodium 134 mmol/L (136-145)
[2020-12-10 07:00] LABS: Glucose Point of Care 109 mg/dL (70-110)
--- NOTE | 2020-12-10 08:59 | P.PN_ITS ---
Subjective Subjective: Interval history: Patient is doing well. Denies complaints of chest pain, shortness of breath or palpitations. Heart rate is controlled. Still has right lower extremity pain that is improved compared to before. Vitals/I&O/Wt Last Vital Signs Temp 98.7 F 12/10/20 08:00 Pulse 90 12/10/20 08:00 Resp 18 12/10/20 08:03 BP 94/59 12/10/20 08:00 Pulse Ox 97 12/10/20 08:00 12/09/20 12/10/20 12/10/20 22:59 06:59 14:59 Intake Total 1070 / 2010.000 890 / 2900.000 240 / 240 Output Total 650 / 1450 600 / 2050 900 / 900 Balance 420 / 560.000 290 / 850.000 -660 / -660 Physical Exam 2 Const: COMMON NORMALS: no acute distress and patient oriented x3 HENMT: COMMON NORMALS: oropharynx normal Neck/C-Spine: COMMON NORMALS: no JVD Resp: COMMON NORMALS: normal respiratory effort and clear to auscultation bilaterally AUSCULTATION: clear to auscultation bilaterally Cardio: COMMON NORMALS: no JVD, S1 normal heart sound present, S2 normal heart sound present and No murmurs present (Cardio) RHYTHM: abnormal rhythm irregularly irregular HEART SOUNDS: S1 normal heart sound present and S2 normal heart sound present GI: COMMON NORMALS: Normal to inspection, nondistended, normoactive bowel sounds present, Soft to palpation and non-tender PALPATION: Yes Soft to palpation Extremity: COMMON NORMALS: no joint enlargement and no pedal edema NARRATIVE EXTREMITY EXAM: Right foot has dressing on Neuro: COMMON NORMALS: patient oriented x3 and moves all extremities Skin: COMMON NORMALS: no rashes or lesions noted GENERAL SKIN EXAM: no rashes or lesions noted Data : 12/10/20 05:02 12/10/20 05:02 A&P Assessment and plan (1) Peripheral arterial disease: Status: Acute (2) Ulcer of right foot with necrosis of bone: Status: Acute (3) Critical lower limb ischemia: Status: Acute (4) Hypertension: Status: Acute (5) Hyperlipidemia: Status: Acute (6) Paroxysmal atrial fibrillation with RVR: Status: Acute Patient has critical limb ischemia and severe peripheral artery disease especially on the right side. After CTA, we decided to proceed with revascularization attempt. Abdominal angiogram showed right external iliac was occluded with collateral flow downstream. We then obtained access in the right PT and navigated through the grafts to put the glide wire in the left femoral artery. Below the knee patient has PT and peroneal arteries patent. Inflow of the graft at the left femoral artery was occluded that we attempted to revascularize with balloon angioplasty and Zilver stent, but flow could not be restored. Discussed with vascular surgery in [place] (Dr Anderson) and he will review images tomorrow and give final plan, however he thinks can likely do open thrombectomy stenting For atrial fibrillation, uptitatrate metoprolol as able.If OK with podiatry can switch to oral anticoagulation at discharge Thank you for involving us with the care of this patient. We will continue to follow. Please call with questions. 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
[2020-12-10] MEDS: buPROPion SR (12 HR) 150 mg Tablet PO ×2 (09:31→21:18)
[2020-12-10] MEDS: gabapentin 300 mg Capsule 600 MG PO ×3 (09:31→20:56)
[2020-12-10] MEDS: atorvastatin 40 mg Tablet PO (09:32)
[2020-12-10] MEDS: clopidogrel 75 mg Tablet PO (09:32)
--- NOTE | 2020-12-10 09:42 | PC.NURSE ---
Pts BP 88/63. Held Metoprolol 50mg po. notified.
[2020-12-10 11:27] LABS: Glucose Point of Care 195 mg/dL (70-110)
[2020-12-10] MEDS: aztreonam 2,000 MG in sodium chloride 0.9% (plus) 100 ML 200 MG IV (11:54)
--- NOTE | 2020-12-10 14:30 | P.PN_ITS ---
Subjective Subjective: Interval history: Patient was seen in the room, no overnight events, patient is complaining of 8/10 right lower extremity pain and thinks current opiate regimen only works for about 2 to 3 hours, no fever overnight Previous notes reviewed, I have talked with sewing machines salesperson and insulation engineman today Vitals/I&O/Wt Last Vital Signs Temp 98.7 F 12/10/20 11:10 Pulse 103 H 12/10/20 11:10 Resp 18 12/10/20 13:38 BP 92/52 12/10/20 11:10 Pulse Ox 98 12/10/20 11:10 12/09/20 12/10/20 12/10/20 22:59 06:59 14:59 Intake Total 1070 / 2010.000 890 / 2900.000 340 / 340 Output Total 650 / 1450 600 / 2050 900 / 900 Balance 420 / 560.000 290 / 850.000 -560 / -560 Physical Exam Narrative: EXAM NARRATIVE: Patient was sitting comfortably when I entered the room was complaining of improvement in pain after getting opioids No active signs of sepsis or fever S1, S2, variable, atrial flutter pattern on telemetry heart rate in 90s with normal hemodynamics No active chest pain no active signs of heart failure No acute respiratory distress bilateral breath sounds without adventitious rhonchi or crackles Abdomen soft bowel sounds sluggish Right lower extremity wrapped with sterile dressing, dressing was not removed no active discharge noticed around the dressing, however right lower extremity is warm not cold to touch Left foot without any ischemia or gangrene Appropriate mood and affect No neurological deficit Data : 12/10/20 05:02 12/10/20 05:02 A&P Assessment and plan (1) Status post transmetatarsal amputation of right foot: Status: Acute (2) Paroxysmal atrial fibrillation with RVR: Status: Acute (3) Critical lower limb ischemia: Status: Acute (4) Peripheral arterial disease: Status: Acute (5) Ulcer of right foot with necrosis of bone: Status: Acute (6) Diabetic neuropathy: Status: Acute Qualifiers: Diabetes mellitus type: type 2 Diabetes mellitus complication detail: diabetic polyneuropathy Qualified Code(s): E11.42 - Type 2 diabetes mellitus wi th diabetic polyneuropathy Additional A&P Information Peripheral arterial disease and right foot ulcer with necrosis/osteomyelitis Occluded femorofemoral and femoropopliteal grafts evident on CTA with runoff, unsuccessful vascular intervention, currently cardiology Dr. Baxter is in touch with Dr. Anderson at [place] who is thinking of doing open thrombectomy subjective to reviewing CTA aorta with runoff today Patient is status post skin grafting by insulation engineman elsewhere subsequently was admitted for nonhealing gangrene of remaining distal foot with osteomyelitis podiatry took him for dystrophic application. Wound culture is growing ESBL/E. coli I would request midline for antibiotic coverage however he is not septic and as per my conversation with Dr. Frey source control has been obtained with recent surgical intervention Wound culture is growing E. coli unfortunately p.o. options are all resistant I would request midline placement and ceftriaxone regimen A. fib/a flutter Without RVR I would not increase metoprolol dose 37.5 mg twice a day for now because of soft blood pressure and requiring opioids frequently Continue aspirin, Plavix and Lovenox therapeutic dose Peripheral arterial disease continue aspirin, Plavix therapeutic dose of Lovenox along statins Did not appreciate cold right lower extremity or active gangrene Appreciate podiatry and sewing machines salesperson recommendations Diabetic with peripheral neuropathy Patient has been requiring opioids quite frequently and currently he is also taking bupropion along gabapentin Full code Diabetic diet Patient will need continued inpatient care because of complexity of peripheral arterial disease, currently awaiting Dr. Anderson's assessment after reviewing CTA aorta with runoff, today I have communicated with sewing machines salesperson and insulation engineman to conclude care of Mr. Balbuena Attestations Medical Necessity Statement*: Continue inpatient care for complexity of peripheral arterial disease requiring midline placement IV antibiotics, coordination of care done with nurses, insulation engineman, sewing machines salesperson Time Spent in Patient Care: Greater than 35 minutes (>than 50% of time spent in counselling and/or direct pt care on unit) . 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
[2020-12-10 15:00] LABS: Vancomycin Trough 20.5 ug/mL (10-15)
--- NOTE | 2020-12-10 16:29 | P.PN_ITS ---
Subjective Subjective: Interval history: Mr. Balbuena is 5 days status post right transmetatarsal amputation secondary to osteomyelitis. Transmetatarsal amputation site has retention sutures only, this was not closed, this was left open for delayed closure due to extent of infection and need for further debridement. Patient denies any subjective nausea, vomiting, fever, chills, shortness of breath or chest pain. Vitals/I&O/Wt Last Vital Signs Temp 98.7 F 12/10/20 12:00 Pulse 115 H 12/10/20 16:00 Resp 20 H 12/10/20 16:00 BP 100/60 12/10/20 16:00 Pulse Ox 96 12/10/20 16:00 12/10/20 12/10/20 12/10/20 06:59 14:59 22:59 Intake Total 890 / 2900.000 340 / 340 Output Total 600 / 2050 900 / 900 Balance 290 / 850.000 -560 / -560 Physical Exam Narrative: EXAM NARRATIVE: Patient is alert and oriented ?3 and in no acute distress. The following is a focused bilateral lower extremity exam. VASCULAR: Dorsalis pedis faintly palpable posterior tibial arteries faintly palpable. Capillary refill time less than 5 seconds left distal hallux and right fourth toe. Calf is supple and nontender proximally and distally. Decreased pedal hair bilaterally. NEUROLOGICAL: Protective sensation intact 0/10 sites, tested with [place] Weinste in monofilament to bilateral feet. DERMATOLOGICAL: Retention sutures intact at the transmetatarsal amputation site. The plantar flap is developing more expansive bowman undertone and a mild maceration. Improved erythema and cellulitis of the right lower extremity. No purulent drainage noted. MUSCULOSKELETAL: No pain with posterior calf squeeze. Able to dorsiflex and plantarflex ankle. 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 Balbuena is a 50-year-old diabetic male with peripheral arterial disease who is status post right transmetatarsal imitation secondary to gangrene. Date of operation 12/05/2020, amputation site not closed to the extent of infection and need for repeat debridement, this was approximated with retention sutures with plans for delayed closure once soft tissue is amenable. -Further ischemic changes present at the plantar flap of transmetatarsal amputation site. Retention sutures intact. Ischemic changes of the plantar flap have been progressive since the time of amputation, started out pink and viable immediately postoperative and is now devitalized secondary to poor perfusion. -I recommended referral to vascular surgery as patient's next best step, this would be beneficial in healing either level of amputation both transmetatarsal amputation site or even a below-knee amputation should it proceed to that level improve vascularity would be paramount in healing potential. -Dressing change performed to the right foot amputation site, no purulence, progressive ischemic changes of the plantar flap, there is no erythema or warmth. -Patient to remain nonweightbearing to the right lower extremity. -From podiatry standpoint no plans for further debridement or delayed closure at this time to the right transmetatarsal amputation site, and sutures left intact retention sutures left intact. Recommend monitoring closely and allowing demarcation of viable tissue while he is being worked up by vascular. 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
[2020-12-10] MEDS: cefTRIAXone 2,000 MG in sodium chloride 0.9% (plus) 50 ML 100 MG IV (16:33)
[2020-12-10 16:48] LABS: Glucose Point of Care 117 mg/dL (70-110)
--- NOTE | 2020-12-10 20:01 | PC.NURSE ---
Patient states with my PAD, my pain never gets below an 8, 8 is as low as you're gonna get it.
[2020-12-10 20:39] LABS: Glucose Point of Care 153 mg/dL (70-110)
--- NOTE | 2020-12-10 20:51 | PC.NURSE ---
Patient is requesting to be woke up when it is time for his pain medication. He states, I'm a deep sleeper but you're just gonna have to wake me up and tell me its time.
[2020-12-10] MEDS: ALPRAZolam 0.25 mg Tablet PO (20:55)
[2020-12-10] MEDS: temazepam 15 mg Capsule PO (20:55)
[2020-12-10] MEDS: docusate sodium 100 mg Capsule PO (20:55)
[2020-12-10] MEDS: metoprolol tartrate 25 mg Tablet 37.5 MG PO (20:56)
[2020-12-11] VITALS (15 sets, daily range): BP systolic 92–102; BP diastolic 60–68; PULSE 72–98; RESP 10–18; TEMP 36–37.1; O2SAT 94–98
[2020-12-11] MEDS: morphine 4 mg/mL SDV 1 mL IVP ×4 (00:15→12:25)
--- NOTE | 2020-12-11 01:21 | PC.NURSE ---
Patient is currently resting with eyes closed. Will monitor.
[2020-12-11] MEDS: oxyCODONE 5 mg IR Tab/Cap 10 MG PO ×3 (01:48→10:31)
--- NOTE | 2020-12-11 02:33 | PC.NURSE ---
Patient is currently resting with eyes closed. Will reassess pain.
[2020-12-11 05:01] LABS: Basophils % 0.3 %; Eosinophils # 0.2 10^3/uL (0.0-0.8); Eosinophils % 1.6 %; Hematocrit 39.1 % (42.0-52.0); Hemoglobin 12.6 g/dL (11.7-16.6); Lymphocytes # 2.3 10^3/uL (0.8-4.8); Lymphocytes % 24.4 %; Mean Corpuscular HGB Conc 32.2 g/dL (30.0-36.0); Mean Corpuscular Hemoglobin 27.6 pg (28.0-34.0); Mean Corpuscular Volume 85.7 fL (80-94); Mean Platelet Volume 9.9 fL (7.4-10.4); Monocytes # 0.8 10^3/uL (0.2-0.9); Neutrophils # 6.14 10^3/uL (1.8-7.7); Neutrophils % 65.4 %; Nucleated Red Blood Cells % 0 %; Platelet Count 289 10^3/cmm (130-400); Red Blood Count 4.56 10^6/uL (4.1-5.3); Red Cell Distribution Width 15.6 % (12.1-15.1); White Blood Count 9.4 10^3/uL (4.0-10.0)
[2020-12-11 05:25] LABS: Anion Gap 12.8 (5-19); Blood Urea Nitrogen 18 mg/dL (6-20); Calcium 8.1 mg/dL (8.5-10.5); Carbon Dioxide 23 mmol/L (22-29); Chloride 101 mmol/L (98-107); Glomerular Filtration Rate 103.2 mL/min (90-130); Glucose 109 mg/dL (65-115); Osmolality Calculated 278 mOsm/kg (285-295); Potassium 3.8 mmol/L (3.5-5.1); Sodium 133 mmol/L (136-145)
[2020-12-11] MEDS: enoxaparin 120 mg/0.8 mL Syringe 110 MG SUBCUT (05:42)
--- NOTE | 2020-12-11 06:40 | PC.NURSE ---
Dr. Hatch gave order to transfer patient to [facility].
[2020-12-11 06:51] LABS: Glucose Point of Care 115 mg/dL (70-110)
--- NOTE | 2020-12-11 07:13 | PC.NURSE ---
When giving IVP Morphine, patient stated, you can push it faster. Patient was educated that it is to be pushed over a period of time in order to prevent side effects.
--- NOTE | 2020-12-11 08:05 | XRR_ITS ---
PROCEDURE INFORMATION: Exam: XR Right Foot Exam date and time: 12/11/2020 8:08 AM Age: 50 years old Clinical indication: Device placement; Other: RT foot surgery; Prior surgery; Surgery date: Post-operative (0-2 days); Additional info: Post op TECHNIQUE: Imaging protocol: XR Right foot. Views: 3 or more views. COMPARISON: CR XR foot RT min 3V* [id number] 12/05/2020 1:23 PM FINDINGS: Bones/joints: The forefoot has been amputated through the proximal shafts of the metatarsal bones. No other acute bony abnormalities are seen. There is swelling around the remaining portion of the metatarsal bones. There is irregularity of the contour of the distal soft tissues consistent with ulceration and subcutaneous emphysema. Soft tissues: See Bones/joints finding. XR/XR foot RT min 3V* [id number] IMPRESSION: 1. Amputation through the level of the proximal shafts of the metatarsal bones. 2. No other acute bony abnormality. 3. Ulceration and subcutaneous emphysema in the distal soft tissues.
[2020-12-11] MEDS: gabapentin 300 mg Capsule 600 MG PO ×2 (08:42→15:10)
[2020-12-11] MEDS: atorvastatin 40 mg Tablet PO (08:42)
[2020-12-11] MEDS: buPROPion SR (12 HR) 150 mg Tablet PO (08:42)
[2020-12-11] MEDS: apixaban 5 mg Tablet PO (08:42)
[2020-12-11] MEDS: metoprolol tartrate 25 mg Tablet 37.5 MG PO (08:43)
[2020-12-11] MEDS: clopidogrel 75 mg Tablet PO (08:43)
--- NOTE | 2020-12-11 09:07 | PC.NURSE ---
Pt transferred to med surg floor. Pt A&O x3. Pt had no c/o pain or discomfort at the present time of transfer. Report called to med-surg nurse.
--- NOTE | 2020-12-11 09:23 | PM.PN ---
Subjective Subjective: Interval history: Patient was seen and examined this morning, no acute events overnight, awaiting midline placement, his pain is much better controlled today however no changes were made in his opioid regimen. He is afebrile not complaining of any active chest pain shortness of breath abdominal pain headache fever Vitals/I&O/Wt Last Vital Signs Temp 98.0 F 12/11/20 09:17 Pulse 91 12/11/20 09:17 Resp 16 12/11/20 09:17 BP 100/67 12/11/20 09:17 Pulse Ox 97 12/11/20 09:17 12/10/20 12/11/20 12/11/20 22:59 06:59 14:59 Intake Total 50 / 390 400 / 790 120 / 120 Output Total 25 / 925 Balance 50 / -510 375 / -135 120 / 120 Physical Exam Narrative: EXAM NARRATIVE: Middle-age male who was lying comfortably in his bed when I entered the room Was saturating well on room air No active chest pain, S1, S2 variable, A. fib evident on telemetry No abdominal pain No acute respiratory distress currently saturating well on room air Not complaining of active pain of his right lower leg Right lower leg does not feel cold no active ischemia or gangrene, Awake alert oriented x3 GCS 15 EOMI, PERRLA No neurological deficit Right foot wound with approximated sutures and sterile dressing no active drainage Data : 12/11/20 04:19 12/11/20 04:19 A&P Assessment and plan (1) Status post transmetatarsal amputation of right foot: Status: Acute (2) Peripheral arterial disease: Status: Acute Additional A&P Information Peripheral arterial disease status post right transmetatarsal amputation due to gangrene Date of operation 12/05/2020 Right foot wound has approximated sutures for plans of delayed closure, I have talked with Dr. Frey who will follow up with Mr. Balbuena outpatient and no intervention is required at this time Awaiting midline placement for ceftriaxone regimen for E. coli that is growing from his wound For peripheral vascular disease he will need vascular intervention, further plan subjective to recommendations from Dr. Anderson after reviewing vascular images today, I will follow up with cardiology and podiatry before planning his discharge A. fib without RVR Rate controlled, I will discontinue Lovenox and start Eliquis I have counseled patient to stop taking Eliquis if you notices increased bleeding from his wound Diabetic with peripheral neuropathy: I would continue his SNRIs and gabapentin for now Kidney function is normal, I would not change dosages at this point Full code Diabetic diet Awaiting midline placement Attestations Medical Necessity Statement*: Awaiting midline placement and will likely will be discharged today Time Spent in Patient Care: (>than 50% of time spent in counselling and/or direct pt care on unit). 30mins Coding Level of Care Code Acute Medical Billing And Coding Instructor for Lisandro Keita Diagnoses Status post transmetatarsal amputation of right foot Z89.431 Peripheral arterial disease I73.9
--- NOTE | 2020-12-11 09:37 | PC.NURSE ---
Addendum entered and electronically signed by Laila Savage RN 12/11/20 10:07: Pt from CSU: Original Note: To floor; Pt to floor from ER - IV to left FA - Bulky dressing to right foot placed by Dr Frey - Pt is alert and oriented x 3 - denies pain -Pt is on RA - Pt oriented to room.
[2020-12-11 10:51] LABS: Glucose Point of Care 146 mg/dL (70-110)
--- NOTE | 2020-12-11 11:06 | PM.PN ---
Subjective Subjective: Interval history: Patient is doing well. His leg pain is improved. Vitals/I&O/Wt Last Vital Signs Temp 96.8 F L 12/11/20 10:36 Pulse 83 12/11/20 10:36 Resp 17 12/11/20 10:36 BP 100/63 12/11/20 10:36 Pulse Ox 97 12/11/20 10:36 12/10/20 12/11/20 12/11/20 22:59 06:59 14:59 Intake Total 50 / 390 400 / 790 120 / 120 Output Total 25 / 925 Balance 50 / -510 375 / -135 120 / 120 Physical Exam Const: COMMON NORMALS: no acute distress and patient oriented x3 HENMT: COMMON NORMALS: oropharynx normal Neck/C-Spine: COMMON NORMALS: no JVD Resp: COMMON NORMALS: normal respiratory effort and clear to auscultation bilaterally AUSCULTATION: clear to auscultation bilaterally Cardio: COMMON NORMALS: no JVD, S1 normal heart sound present, S2 normal heart sound present and No murmurs present (Cardio) RHYTHM: abnormal rhythm irregularly irregular HEART SOUNDS: S1 normal heart sound present and S2 normal heart sound present GI: COMMON NORMALS: Normal to inspection, nondistended, normoactive bowel sounds present, Soft to palpation and non-tender PALPATION: Yes Soft to palpation Extremity: COMMON NORMALS: no joint enlargement and no pedal edema NARRATIVE EXTREMITY EXAM: Right foot has dressing on Neuro: COMMON NORMALS: patient oriented x3 and moves all extremities Skin: COMMON NORMALS: no rashes or lesions noted GENERAL SKIN EXAM: no rashes or lesions noted Data : 12/11/20 04:19 12/11/20 04:19 A&P Assessment and plan (1) Peripheral arterial disease: Status: Acute (2) Ulcer of right foot with necrosis of bone: (3) Critical lower limb ischemia: (4) Hypertension: (5) Hyperlipidemia: (6) Paroxysmal atrial fibrillation with RVR: Status: Resolved Patient has critical limb ischemia and severe peripheral artery disease especially on the right side. After CTA, we decided to proceed with revascularization attempt. Abdominal angiogram showed right external iliac was occluded with collateral flow downstream. We then obtained access in the right PT and navigated through the grafts to put the glide wire in the left femoral artery. Below the knee patient has PT and peroneal arteries patent. Inflow of the graft at the left femoral artery was occluded that we attempted to revascularize with balloon angioplasty and Zilver stent, but flow could not be restored. Discussed with Dr. Anderson with vascular surgery at [facility] in [place]. He has reviewed his images. Patient will likely undergo outpatient procedure with them. His office will set up outpatient appointment. For atrial fibrillation, uptitatrate metoprolol as able.If OK with podiatry can switch to oral anticoagulation at discharge Thank you for involving us with the care of this patient. Patient is okay to be discharged from cardiology standpoint. Please call with questions. Attestations Medical Necessity Statement*: Care expected to cross 2 midnights. Coding Level of Care Code Acute Network Support Specialist for Lisandro Keita Diagnoses Status post transmetatarsal amputation of right foot Z89.431 Peripheral arterial disease I73.9 Ulcer of right foot with necrosis of bone L97.514 Critical lower limb ischemia I99.8 Hypertension I10 Hyperlipidemia E78.5 Paroxysmal atrial fibrillation with RVR I48.0
--- NOTE | 2020-12-11 13:04 | P.DS_ITS ---
Discharge Providers Date of Admission: 12/04/20 22:48 Date of Discharge: December 11, 2020 Attending Provider at Admission: Angel Villalobos Attending Provider at Discharge: Teodoro Hatch MD Primary Care Provider: EDEN Lee Diagnoses at Discharge Discharge Diagnosis (1) Status post transmetatarsal amputation of right foot: Status: Acute (2) Peripheral arterial disease: Status: Acute Reason for Visit Reason for Visit: SENT BY DR ELKINS/GALO ON IV ANTIBIOTICS Hospital Course Hospital Course 50-year-old gentleman with right diabetic foot ulcer with underlying peripheral arterial disease had femorofemoral and femoropopliteal bypass in August done by vascular surgeon in [place] has had issues with nonhealing wounds requiring digit amputations on the right foot subsequently still nonhealing with for which he received skin grafting by product support sales representative(elsewhere), subsequently admitted here for 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 Podiatry took him for distal foot amputation 12/05/2020. CTA aorta with runoff showed occlusion of both grafts. Cardiology was consulted. His images were shown to vascular surgeon in [place] Dr. Anderson. He might be able to do open thrombectomy which can be done outpatient since his right lower extremity had good temperature without critical diagonal venous changes. Decision was made to discharge patient with a midline because wound culture was growing E. coli, 10-day IV antibiotics of ceftriaxone 2 g daily and have him follow-up with podiatry and cardiology. Dr. Baxter electric motor assembler and tester talked with the vascular surgeon in [place] who will follow up with him after his discharge. I have requested midline placement on 12/11/2020, arranged home health services &ceftriaxone 2 g daily for next 10 days. However during his hospitalization he was never septic initially he required vancomycin which was discontinued. Sterile blood cultures. Source control was achieved after amputation however he does have approximated sutures with open wound for secondary healing for which podiatry will follow up. At the time of discharge I am continuing Eliquis for his A. fib. He was getting therapeutic dose of Lovenox after amputation, hemoglobin stayed stable and his wound never had any bloody discharge. Physical Exam Narrative: EXAM NARRATIVE: Very pleasant morbidly obese male Was laying comfortable in his bed when I saw him Hemodynamically stable S1, S2 no chest pain Abdomen distended nontender morbid obesity No neurological deficit EOMI, PERRLA Right lower extremity with interrupted sutures with ischemic changes at the tip of the wound however his extremities are warm to touch No joint swelling Vascular surgery scar harper noted of lower extremity Discharge Data Data Completed and Pending: Completed Studies During Hospitalization Category Date Time Status CT angio abd aort a runof 85493 Rout ine Cat Scan 12/06/20 08:10 Completed XR foot RT min 3V * [id number] Routine Exams 12/05/20 12:57 Completed XR foot RT min 3V * [id number] Routine Exams 12/11/20 08:05 Completed Pathology: Surgic al [PTH] Routine Pth 12/05/20 12:59 Completed CV guide vascular access [id number] Rout ine Ultrasound 12/07/20 13:59 Completed Pending at discharge Category Date Time Status TOP CASE ASSEMBLER request for service Routin e Exams 12/07/20 13:19 Taken Labs from last 24 hours 12/11/20 12/11/20 12/11/20 10:31 06:48 04:19 WBC RBC Hgb Hct MCV MCH MCHC RDW Plt Count MPV Neut % (Auto) Lymph % (Auto) [place] % (Auto) Eos % (Auto) Baso % (Auto) Neut # (Auto) Lymph # (Auto) [place] # (Auto) Eos # (Auto) Baso # (Auto) Nucleated RBC % (a uto) Nucleated RBCs # Sodium 133 L Potassium 3.8 Chloride 101 Carbon Dioxide 23 Anion Gap 12.8 BUN 18 Creatinine 0.8 GFR Calculation 103.2 Glucose 109 POC Glucose 146 H 115 H Calculated Osmolal ity 278 L Calcium 8.1 L Vancomycin Trough 12/11/20 12/10/20 12/10/20 04:19 20:36 16:46 WBC 9.4 RBC 4.56 Hgb 12.6 Hct 39.1 L MCV 85.7 MCH 27.6 L MCHC 32.2 RDW 15.6 H Plt Count 289 MPV 9.9 Neut % (Auto) 65.4 Lymph % (Auto) 24.4 [place] % (Auto) 8.0 Eos % (Auto) 1.6 Baso % (Auto) 0.3 Neut # (Auto) 6.14 Lymph # (Auto) 2.3 [place] # (Auto) 0.8 Eos # (Auto) 0.2 Baso # (Auto) 0.0 Nucleated RBC % (a uto) 0 Nucleated RBCs # 0.0 Sodium Potassium Chloride Carbon Dioxide Anion Gap BUN Creatinine GFR Calculation Glucose POC Glucose 153 H 117 H Calculated Osmolal ity Calcium Vancomycin Trough 12/10/20 14:20 WBC RBC Hgb Hct MCV MCH MCHC RDW Plt Count MPV Neut % (Auto) Lymph % (Auto) [place] % (Auto) Eos % (Auto) Baso % (Auto) Neut # (Auto) Lymph # (Auto) [place] # (Auto) Eos # (Auto) Baso # (Auto) Nucleated RBC % (a uto) Nucleated RBCs # Sodium Potassium Chloride Carbon Dioxide Anion Gap BUN Creatinine GFR Calculation Glucose POC Glucose Calculated Osmolal ity Calcium Vancomycin Trough 20.5 H Vitals: Last Vital Signs Temp 96.8 F L 12/11/20 10:36 Pulse 83 12/11/20 10:36 Resp 18 12/11/20 12:25 BP 100/63 12/11/20 10:36 Pulse Ox 97 12/11/20 10:36 Discharge Plan Discharge Patient Disposition: Home Condition: Stable Prescriptions: New Eliquis 5 mg Tablet 5 mg PO BID@00,2099 30 Days RF: 0 Mag-Al Plus 200-200-20 mg/5 mL Suspension 30 ml PO Q15M PRN (Reason: Indigestion) 10 Days Qty: 10 RF: 0 Milk of Magnesia 400 mg/5 mL Suspension 30 ml PO DAILY PRN (Reason: Constipation) 30 Days Qty: 30 RF: 0 DOK 100 mg Capsule 100 mg PO BEDTIME 30 Days Qty: 30 RF: 0 metoprolol tartrate 25 mg Tablet 37.5 mg PO BID@899,2099 30 Days Qty: 60 RF: 0 Senna Plus 8.6-50 mg capsule 1 tab-cap PO DAILY 30 Days Qty: 30 RF: 0 ceftriaxone 2 gram recon soln 2 g IV DAILY 10 Days Qty: 10 RF: 0 Continued aspirin [Adult Aspirin Regimen] 81 mg tablet,delayed release (DR/EC) 81 mg PO DAILY@08 RF: 0 gabapentin 400 mg capsule 400 mg PO TID 30 Days Qty: 90 RF: 0 atorvastatin 40 mg tablet 40 mg PO DAILY@08 RF: 0 Levemir FlexTouch U-100 Insuln 100 unit/mL (3 mL) insulin pen See Rx Instructions .ROUTE .COMPLEX RF: 0 lisinopril 2.5 mg tablet 2.5 mg PO DAILY@08 RF: 0 potassium chloride 20 mEq tablet extended release 20 meq PO BID@08,20 RF: 0 insulin aspart U-100 [Novolog Flexpen U-100 Insulin] 100 unit/mL (3 mL) insulin pen See Rx Instructions .ROUTE .COMPLEX RF: 0 bupropion HCl [Wellbutrin SR] 150 mg tablet sustained-release 12 hr 150 mg PO BID Qty: 60 RF: 2 furosemide 40 mg tablet 40 mg PO DAILY Qty: 30 RF: 0 Jardiance 25 mg tablet 25 mg PO QAM RF: 0 Tylenol Extra Strength 500 mg Tablet 1,500 mg PO PRN RF: 0 Percocet 10-325 mg Tablet 1 tab PO Q6H PRN (Reason: Pain) RF: 0 Dakin's Solution 0.25 % solution See Rx Instructions .ROUTE .COMPLEX RF: 0 SilvaSorb Gel,Extended Release 1 applic TOPICAL DIRECTED RF: 0 Changed furosemide 40 mg tablet 20 mg PO DAILY Qty: 30 RF: 0 Discontinued clopidogrel [Plavix] 75 mg tablet 75 mg PO DAILY@08 RF: 0 oxycodone-acetaminophen 5-325 mg tablet 1 tab PO DAILY PRN (Reason: pain) 7 Days Qty: 7 RF: 0 metolazone 5 mg tablet 5 mg PO DAILY RF: 0 levofloxacin 500 mg tablet 500 mg PO DAILY RF: 0 Discharge Orders: Discharge Order (Routine); Ordered 12/11/20 Ordered By: Teodoro Hatch Referrals: Shakira Benavides FNP [Primary Care Provider] - 12/19/20 11:00 am Discharge Diet: Diabetic Discharge Activity: Resume usual activity Patient Instructions: Peripheral Vascular Angioplasty (DC), Peripheral Vascular Stent Placement (DC) Activity Restrictions/Additional Instructions: Please finish 10 days of ceftriaxone 2 g IV daily Since you will be taking Eliquis with aspirin I have discontinued Plavix Please take aspirin and atorvastatin for peripheral arterial disease Follow-up with podiatry and electric motor assembler and tester Right foot offloading with the boot Discharge Attestations Time Spent in Discharge Care*: greater than 30 min Quality Metrics Clinical Quality Measures During this hospital stay, did patient experience: None Coding Level of Care Code Acute Margin Clerk for Lisandro Fwmelly Diagnoses Status post transmetatarsal amputation of right foot Z89.431 Peripheral arterial disease I73.9
[2020-12-11] MEDS: cefTRIAXone 2,000 MG in sodium chloride 0.9% (plus) 50 ML 100 MG IV (15:09)
== END 2020-12-11 16:26 | disposition home or self-care (01) | DRG 240 ==
LOC: ER 22:37 → MEDSURG 23:20 → CSU 12-07 16:25 → MEDSURG 12-11 09:15
PROVIDERS: Internal Medicine; Absent Provider Podiatrist Foot & Ankle Surgery; Admitting Provider Internal Medicine; Emergency Provider Emergency Medicine; PCP Nurse Practitioner Family; Visit Provider Internal Medicine
PROC: 0Y6M0ZC Detachment at Right Foot, Partial 3rd Ray, Open Approach (ICD-10-PCS; principal; 2020-12-05 12:00)
PROC: X27 New Technology, Cardiovascular System, Dilation (ICD-10-PCS; principal; 2020-12-07 13:30)
PROC: X27 New Technology, Cardiovascular System, Dilation (ICD-10-PCS; 2020-12-07 13:30)
DX: E11.52 Type 2 diabetes mellitus with diabetic peripheral angiopathy with gangrene (principal); I96 Gangrene, not elsewhere classified; M86.9 Osteomyelitis, unspecified; T82.898A Other specified complication of vascular prosthetic devices, implants and grafts, initial encounter; E11.69 Type 2 diabetes mellitus with other specified complication; E11.42 Type 2 diabetes mellitus with diabetic polyneuropathy; I77.89 Other specified disorders of arteries and arterioles; Y82.8 Other medical devices associated with adverse incidents; Z89.411 Acquired absence of right great toe; Z89.421 Acquired absence of other right toe(s); F41.9 Anxiety disorder, unspecified; E78.5 Hyperlipidemia, unspecified; I10 Essential (primary) hypertension; I25.10 Atherosclerotic heart disease of native coronary artery without angina pectoris; Z95.5 Presence of coronary angioplasty implant and graft; F17.210 Nicotine dependence, cigarettes, uncomplicated; I48.0 Paroxysmal atrial fibrillation; G89.29 Other chronic pain; Z79.82 Long term (current) use of aspirin; Z79.02 Long term (current) use of antithrombotics/antiplatelets
CPT/HCPCS: 36415; 36416; 36569; 37226; 37228; 73630; 75625; 75635; 75710; 76937; 80048; 80053; 80202; 82962; 83735; 85025; 85651; 85730; 86140; 87070; 87077; 87176; 87186; 87205; 87635; 88305; 93005; 96365; 96367; 96372; 96374; 99285; C1725; C1751; C1769; C1876; C1887; C1894; J0696; J1170; J1200; J1644; J1650; J1815; J2250; J2270; J2704; J3010; J3370; J3475; J3490; J7030; J7050; Q9967

== ENCOUNTER 2020-12-25 09:11 | Outpatient (CLI) | payer MEDICARE, MEDICAID, SELFPAY ==
--- NOTE | 2020-12-25 09:27 | CT_ITS ---
WS: [id number] Exam: CT angio abd aorta runof [id number] Date/Time of Exam: 12/25/2020 9:27 AM Reason For Exam: PAD DLP: 1684.[address] scans at [facility] use at least one of these dose optimization techniques: automat ed exposure control; mA and/or kV adjustment per patient size (includes targeted exams where dose is matched to clinical indication); or iterative reconstruction. Compared to previous exam 12/06/2020. The abdominal aorta is normal in caliber without evidence of the aneurysm. Again noted is mild stenos is of the distal abdominal aorta just above the bifurcation which shows no change. The celiac, SMA an d NICK are all patent. The bilateral renal arteries are patent. The bilateral common iliac arteries ar e patent but show extensive calcified and soft atherosclerotic plaque formation. The right external i liac artery is completely occluded. The right common femoral and superficial femoral arteries are chr onically occluded. The left external iliac artery is patent but demonstrates multilevel moderate segm ental stenoses. A femoral-femoral bypass graft is noted and is occluded. A right femoral to popliteal graft is noted and is occluded. The left common femoral artery is grossly patent. There is moderate stenosis at the takeoff of the left superficial femoral artery. There is also moderate stenosis at th e distal left superficial femoral artery. The left popliteal artery is patent. The left trifurcation is patent. Multilevel of stenosis noted in the left peroneal artery. The left tibial arteries are gen erally patent to the level of the ankle. There appears to be reconstituted flow in the region of the right trifurcation. The right anterior and posterior tibial arteries are generally patent. The right peroneal artery shows moderate stenosis in the region of the ankle. Images of the abdomen and pelvis. Lower lung zones are clear. The heart is enlarged. Coronary artery calcifications. The liver is slightly lobulated in contour which might be seen with cirrhosis. The sp veronica, stomach, and pancreas are unremarkable. No calcified stones in the gallbladder. The abdominal a shercie is normal in caliber. Normal adrenal glands and kidneys. Small bowel loops are normal in caliber . No sign of acute appendix. No significant large bowel abnormality noted. No free air or lymphadenop athy. Intact urinary bladder. No pelvic mass or adenopathy. No destructive bone lesions are noted. Pr obable spinal canal stenosis at L3-4 and L4-5. Small ventral hernia containing fat CT/CT angio abd aorta runof [id number] IMPRESSION: 1. Mild stenosis of the distal abdominal aorta secondary to atherosclerotic marilee quing. No change. 2. The major intra-abdominal branches of the abdominal aorta were patent. No ab dominal aortic aneurysm. 3. Occluded right external iliac artery. 4. Occluded femorofemoral bypass graft. 5. Occluded right femoral popliteal graft. 6. Moderate stenoses at both the proximal and distal ends of the left professio nal femoral artery. 7. Multilevel of moderate stenoses of the left peroneal artery. Moderate stenos es of the right peroneal artery. 8. Additional nonacute findings as above.
[2020-12-25] MEDS: iohexol 350 mg/mL 100 mL Btl IV (10:02)
== END 2020-12-25 09:12 | disposition home or self-care (01) ==
LOC: RADWPI 09:15
PROVIDERS: PCP Nurse Practitioner Family; Visit Provider Thoracic Surgery (Cardiothoracic Vascular Surgery)
DX: I73.9 Peripheral vascular disease, unspecified (principal); I70.0 Atherosclerosis of aorta; I70.8 Atherosclerosis of other arteries; I74.5 Embolism and thrombosis of iliac artery
CPT/HCPCS: 75635; Q9967

== ENCOUNTER 2021-01-01 07:53 | Outpatient (RCR) | payer MEDICARE, MEDICAID, SELFPAY ==
[2020-12-12 11:36] VITALS: BP 108/70; PULSE 87; RESP 18; TEMP 36.7; O2SAT 97
[2020-12-12] MEDS: cefTRIAXone 2,000 MG in sodium chloride 0.9% (plus) 50 ML 100 MG IV (11:40)
--- NOTE | 2020-12-12 14:40 | PC.NURSE ---
1145 Dressing to right upper arm PICC line changed using sterile technique. Site with good blood return and flushed without difficulty. Pt to receive Ceftriaxone 2 gm IVPB as outpatient due to issues with insurance and payment through home health.
[2020-12-13] MEDS: cefTRIAXone 2,000 MG in sodium chloride 0.9% (plus) 50 ML 100 MG IV (11:57)
[2020-12-13 11:58] VITALS: BP 101/66; PULSE 105; RESP 18; TEMP 36.7; O2SAT 98
[2020-12-14 11:22] VITALS: BP 105/63; PULSE 68; RESP 20; TEMP 36.4; O2SAT 95
[2020-12-14] MEDS: cefTRIAXone 2,000 MG in sodium chloride 0.9% (plus) 50 ML 100 MG IV (11:24)
[2020-12-15] MEDS: cefTRIAXone 2,000 MG in sodium chloride 0.9% (plus) 50 ML 100 MG IV (11:30)
[2020-12-16] MEDS: cefTRIAXone 2,000 MG in sodium chloride 0.9% (plus) 50 ML 100 MG IV (11:35)
[2020-12-16 12:06] VITALS: BP 92/63; PULSE 80; RESP 18; TEMP 36.2; O2SAT 97
[2020-12-17] MEDS: cefTRIAXone 2,000 MG in sodium chloride 0.9% (plus) 50 ML 100 MG IV (11:40)
[2020-12-17 11:42] VITALS: BP 105/77; PULSE 101; RESP 18; TEMP 36.6; O2SAT 98
[2020-12-18 11:22] VITALS: BP 99/73; PULSE 95; RESP 16; TEMP 36.5; O2SAT 99
[2020-12-18] MEDS: cefTRIAXone 2,000 MG in sodium chloride 0.9% (plus) 50 ML 100 MG IV (11:45)
[2020-12-19 11:05] VITALS: BP 104/76; PULSE 103; RESP 18; TEMP 36.5; O2SAT 96
[2020-12-19] MEDS: cefTRIAXone 2,000 MG in sodium chloride 0.9% (plus) 50 ML 100 MG IV (11:41)
[2020-12-20] MEDS: cefTRIAXone 2,000 MG in sodium chloride 0.9% (plus) 50 ML 100 MG IV (11:14)
[2020-12-20 11:16] VITALS: BP 93/69; PULSE 98; RESP 18; TEMP 36.8; O2SAT 98
[2020-12-21] MEDS: cefTRIAXone 2,000 MG in sodium chloride 0.9% (plus) 50 ML 100 MG IV (12:03)
--- NOTE | 2020-12-21 12:28 | PC.NURSE ---
patient is asking if he has his picc line pulled tomorrow after last infusion. I called podiatry, Dr Frey says the ordering hospitalist should determine that order. Dr. Hatch is not working today, did not answer call or have voicemail set up to leave a message.
--- NOTE | 2020-12-21 13:27 | PC.NURSE ---
spoke with Dr. Frey's nurse, order to continue rocephin 2g iv daily until December 27 when he will be seen by Dr. Frey in his clinic.
[2020-12-22] MEDS: cefTRIAXone 2,000 MG in sodium chloride 0.9% (plus) 50 ML 100 MG IV (11:25)
[2020-12-22 11:33] VITALS: BP 92/62; PULSE 93; RESP 18; TEMP 36.6; O2SAT 96
[2020-12-23] MEDS: cefTRIAXone 2,000 MG in sodium chloride 0.9% (plus) 50 ML 100 MG IV (11:41)
[2020-12-23 11:57] VITALS: BP 111/71; PULSE 104; RESP 18; TEMP 36.5; O2SAT 96
[2020-12-24 11:40] VITALS: BP 112/63; PULSE 63; RESP 18; TEMP 36.4; O2SAT 98
[2020-12-24] MEDS: cefTRIAXone 2,000 MG in sodium chloride 0.9% (plus) 50 ML 100 MG IV (11:52)
[2020-12-25] MEDS: cefTRIAXone 2,000 MG in sodium chloride 0.9% (plus) 50 ML 100 MG IV (10:22)
[2020-12-25 10:27] VITALS: BP 104/76; PULSE 89; RESP 18; TEMP 36.3; O2SAT 98
[2020-12-26] MEDS: cefTRIAXone 2,000 MG in sodium chloride 0.9% (plus) 50 ML 100 MG IV (11:16)
[2020-12-26 11:23] VITALS: BP 93/66; PULSE 93; RESP 18; TEMP 36.4; O2SAT 96
[2020-12-27 11:06] VITALS: BP 91/67; PULSE 93; RESP 18; TEMP 36.2; O2SAT 98
[2020-12-27] MEDS: cefTRIAXone 2,000 MG in sodium chloride 0.9% (plus) 50 ML 100 MG IV (11:10)
[2020-12-28 11:25] VITALS: BP 100/73; PULSE 91; RESP 18; TEMP 36.1; O2SAT 96
[2020-12-28] MEDS: cefTRIAXone 2,000 MG in sodium chloride 0.9% (plus) 50 ML 100 MG IV (11:30)
[2020-12-28 11:49] LABS: Basophils # 0.1 10^3/uL (0.0-0.1); Basophils % 0.7 %; Eosinophils # 1.2 10^3/uL (0.0-0.8); Eosinophils % 10.9 %; Hematocrit 44.5 % (42.0-52.0); Hemoglobin 14.5 g/dL (11.7-16.6); Lymphocytes # 2.4 10^3/uL (0.8-4.8); Mean Corpuscular HGB Conc 32.6 g/dL (30.0-36.0); Mean Corpuscular Hemoglobin 27.8 pg (28.0-34.0); Mean Corpuscular Volume 85.4 fL (80-94); Monocytes # 0.7 10^3/uL (0.2-0.9); Monocytes % 6.4 %; Neutrophils # 6.86 10^3/uL (1.8-7.7); Neutrophils % 60.5 %; Nucleated Red Blood Cells % 0 %; Platelet Count 368 10^3/cmm (130-400); Red Blood Count 5.21 10^6/uL (4.1-5.3); Red Cell Distribution Width 16.2 % (12.1-15.1); White Blood Count 11.4 10^3/uL (4.0-10.0)
[2020-12-28 13:31] LABS: Erythrocyte Sedimentation Rate 27 mm/hr (0-10)
[2020-12-29] MEDS: cefTRIAXone 2,000 MG in sodium chloride 0.9% (plus) 50 ML 100 MG IV (11:51)
[2020-12-29 12:00] VITALS: BP 102/76; PULSE 88; RESP 18; TEMP 36.2; O2SAT 99
[2020-12-30] MEDS: cefTRIAXone 2,000 MG in sodium chloride 0.9% (plus) 50 ML 100 MG IV (11:32)
[2020-12-30 11:34] VITALS: BP 106/76; PULSE 85; RESP 18; TEMP 36.5; O2SAT 99
[2020-12-31] MEDS: cefTRIAXone 2,000 MG in sodium chloride 0.9% (plus) 50 ML 100 MG IV (11:55)
[2020-12-31 11:56] VITALS: BP 103/68; PULSE 87; RESP 18; TEMP 36.2; O2SAT 99
[2021-01-01 07:51] VITALS: BP 103/76; PULSE 94; RESP 18; TEMP 36.6; O2SAT 99
[2021-01-01] MEDS: cefTRIAXone 2,000 MG in sodium chloride 0.9% (plus) 50 ML 100 MG IV (08:00)
== END 2021-01-02 23:59 | disposition home or self-care (01) ==
LOC: GILAB 07:53
PROVIDERS: Podiatrist Foot & Ankle Surgery; PCP Nurse Practitioner Family; Visit Provider Internal Medicine
DX: L97.514 Non-pressure chronic ulcer of other part of right foot with necrosis of bone (principal)
CPT/HCPCS: 36415; 73630; 85025; 85651; 96365; J0696

== ENCOUNTER → 2021-01-07 09:11 | Outpatient (BNVA) | payer MEDICARE, MEDICAID, SELFPAY | PROVIDERS: PCP Nurse Practitioner Family; Visit Provider Podiatrist Foot & Ankle Surgery | DX: Z48.89 Encounter for other specified surgical aftercare (principal); L97.514 Non-pressure chronic ulcer of other part of right foot with necrosis of bone | CPT/HCPCS: 73630 ==

== ENCOUNTER 2021-01-11 08:05 | Day surgery (SDC) | payer MEDICARE, MEDICAID, SELFPAY ==
[2021-01-10 11:20] VITALS: BMI 34.4
[2021-01-11] VITALS (8 sets, daily range): BP systolic 75–105; BP diastolic 47–72; PULSE 86–96; RESP 16–22; TEMP 36.1–36.6; O2SAT 92–99
--- NOTE | 2021-01-11 07:58 | P.HPUD_ITS ---
Surgery/Procedure H&P Update DATE OF PROCEDURE: January 11, 2021 DATE H&P PERFORMED: 01/07/21 H&P UPDATE INFORMATION: I have reviewed H&P completed within last 30 days, I have examined patient prior to procedure, No changes to prior documentation and H&P is in [facility] EMR on date indicated PREOP DIAGNOSIS: osteomyelitis right foot, ankle contracture right PLANNED PROCEDURE: Operation Date: 01/11/21 09:05 Proposed Procedures p Primary delayed closure and tendon achilles lengthing right lower extremity 30826 12606 L97.514(Right) - Bhargav Frey DPM s Delayed Wound Closure(Right) - Bhargav Frey DPM
[2021-01-11 08:28] LABS: Glucose Point of Care 186 mg/dL (70-110)
--- NOTE | 2021-01-11 09:10 | P.ANESASSM_ITS ---
Pre-Anesthetic Assessment Pre-Anesthetic Assessment: Height/Weight: Height 1.8 m Weight 112.037 kg Temp Pulse Resp BP Pulse Ox 97.3 F L 90 18 86/60 99 01/11/21 08:15 01/11/21 08:15 01/11/21 08:15 01/11/21 08:15 01/11/21 08:15 Preop Diagnosis: Critical limb ischemia/Osteomyelitis right foot, gangrene right foot Proposed Procedure: Operation Date: 01/11/21 09:05 Proposed Procedures p Primary delayed closure and tendon achilles lengthing right lower extremity 13 160 20488 L97.514(Right) - Bhargav Frey DPM s Delayed Wound Closure(Right) - Bhargav Frey DPM Familial anesthetic complications: None Was Beta Jesus taken within 24 hours: N/A Was Clonidine taken within 24 hours: N/A Last intake: Intake Last Liquid Date 01/10/21 Last Liquid Time 21:00 Last Solid Date 01/10/21 Last Solid Time 22:00 Social: Social History: No alcohol and No tobacco Comment: former smoker Exam: Pre-Anes Outpt Exam: alert, oriented x 3, clear to auscultation bilaterally and regular rate & rhythm Airway: Cervical ROM: WNL MP: 4 Dentition: Other (ten teeth) CV/HEM: CV/HEM: Afib (xarelto), CAD (stents) and PVD Metabolic: Metabolic: DM, Hyperlipidemia and Morbid obesity Anesthetic Plan: ASA status: 3 Anesthesia: MAC Risk of > 500 ml blood loss (7ml/kg in children): No PFSH Anesthesia PFSH: Medical History Anxiety Critical lower limb ischemia Diabetic neuropathy DM type 2 (diabetes mellitus, type 2) Hyperlipidemia Hypertension PVD (peripheral vascular disease) Smoking addiction Ulcer of right foot with necrosis of bone Surgical History H/O hernia repair History of heart artery stent Hx of amputation of lesser toe Status post transmetatarsal amputation of right foot Family History Sister Diabetes Mother Diabetes Father CAD (coronary artery disease) Social History Smoking and tobacco status: current every day smoker Second hand smoke exposure: Yes Data Anesthesia Other Labs: Laboratory Results - last 48 hr 01/11/21 08:24 POC Glucose 186 H Cardiac Studies: No Data to Display
[2021-01-11] MEDS: clindamycin 600 MG/50 ML PREMIX 50 MG IV (09:13)
[2021-01-11] MEDS: sodium chloride 0.9% 1,000 ML 30 ML IV (09:16)
[2021-01-11] MEDS: lidocaine 1% INJ 20 mL SUBCUT (09:40)
--- NOTE | 2021-01-11 10:03 | XR_ITS ---
WS: [id number] Right foot, 3 views, 01/11/2021 Clinical Data: post op Comparison: Right foot, 01/07/2021. Findings: There has been further resection of the metatarsals of the right foot. Only the bases of the second through fifth metatarsals remain. There is air in the operative site. XR/XR foot RT min 3V* 16686 Impression: Further resection of the metatarsals of the right foot.
[2021-01-11] MEDS: oxyCODONE 5 mg IR Tab/Cap 10 MG PO (10:38)
[2021-01-11 10:56] LABS: Glucose Point of Care 147 mg/dL (70-110)
[2021-01-11] MEDS: fentaNYL 50 mcg/mL INJ 2mL IVP ×2 (10:58→11:19)
[2021-01-11] MEDS: cefTRIAXone 2,000 MG in sodium chloride 0.9% (plus) 50 ML 100 MG IV (10:59)
--- NOTE | 2021-01-11 12:03 | PM.OP ---
Operative Report Date of procedure: January 11, 2021 Pre-op Diagnosis: Critical limb ischemia/Osteomyelitis right foot, gangrene right foot Post-op diagnosis: same Procedure Done: Primary delayed closure right lower extremity. CPT 11070 Implants: 2-0 Vicryl, 3-0 nylon Surgeon: Bhargav Frey D.P.M. Automotive Teacher: See intraoperative documentation Anesthesia: MAC Estimated blood loss: Less than 10 mL Tourniquet time: See intraoperative documentation Condition: stable Disposition: PACU Brief History: Patient has history of transmetatarsal amputation of the left foot with peripheral arterial disease. Recent revascularization by Dr. Justin WILSON vascular surgery [facility]. Recommending primary delayed closure with debridement of nonviable muscle tendon and bone as an opportune time after recent revascularization. Risks include nonhealing, persistent infection and need for higher levels of amputation, transfer pressure and transfer lesion and decreased function/altered mechanics. Patient interviewed preop he is n.p.o., his is present, informed consent signed by patient and myself. He wishes to proceed. Procedure: Patient was brought to the operating room and placed on the operating table in supine position. A timeout was performed. Left ankle block was performed utilizing one-to-one mixture 1% lidocaine 0.5% Marcaine plain total of 20 cc utilized. Well-padded pneumatic tourniquet applied to the left ankle. Left lower extremity was then scrubbed, prepped and draped utilizing normal aseptic technique. Attention was directed to the left transmetatarsal amputation site there was devitalized soft tissue at the level of the amputation as well as devitalized bone exposed at remaining distal metatarsals. Utilizing a 10 blade skin was sharply excised to viable margin followed by transection of metatarsals 1 through 5 to allow for adequate soft tissue flap closure without tension. Copious amounts of sterile saline solution utilized to irrigate the incision. Tourniquet was deflated and no pulsatile bleeders appreciated. Skin bleeding was decreased but present. Deep tissue was reapproximated utilizing 2-0 Vicryl and skin reapproximated without tension utilizing 3-0 nylon. Incision dressed with Adaptic, sterile 4 x 4, ABD pad, Kerlix followed by application of cam boot. No compressive dressings applied. Patient tolerated procedure well and was transferred to the PACU with vital signs stable and vascular status intact. Will be discharged home is to be nonweightbearing to the left lower extremity will follow-up in clinic next week.
--- NOTE | 2021-01-11 16:00 | ANE.PACU2 ---
Inpatient post-anesthesia follow up: Airway intact: Yes Vital signs: Temperature 97.0 F Pulse Rate 86 Respiratory Rate 18 Blood Pressure 105/72 Pulse Oximetry 96 Oxygen Delivery Me thod Room Air Oxygen Flow Rate 6 Fraction of Inspir ed Oxygen Hydration adequate: Yes Nausea and vomiting: No Pain level: 1 Mental status: Baseline
== END 2021-01-11 12:03 | disposition home or self-care (01) ==
PROVIDERS: PCP Nurse Practitioner Family; Visit Provider Podiatrist Foot & Ankle Surgery
PROC: (CPT 13160; 2021-01-11 08:55)
DX: E11.52 Type 2 diabetes mellitus with diabetic peripheral angiopathy with gangrene (principal); I96 Gangrene, not elsewhere classified; Z79.4 Long term (current) use of insulin; M86.8X7 Other osteomyelitis, ankle and foot; Z79.82 Long term (current) use of aspirin; Z79.01 Long term (current) use of anticoagulants; F41.9 Anxiety disorder, unspecified; E11.40 Type 2 diabetes mellitus with diabetic neuropathy, unspecified; E78.5 Hyperlipidemia, unspecified; I10 Essential (primary) hypertension; F17.210 Nicotine dependence, cigarettes, uncomplicated; Z83.3 Family history of diabetes mellitus; Z82.49 Family history of ischemic heart disease and other diseases of the circulatory system; I48.91 Unspecified atrial fibrillation; E66.01 Morbid (severe) obesity due to excess calories; Z68.34 Body mass index [BMI] 34.0-34.9, adult; I25.10 Atherosclerotic heart disease of native coronary artery without angina pectoris
CPT/HCPCS: 13160; 36416; 36569; 73630; 82962; 96365; 96374; 96375; J0696; J2250; J2704; J3010; J3490; J7030

== ENCOUNTER 2021-02-01 11:36 | Outpatient (RCR) | payer MEDICARE, MEDICAID, SELFPAY ==
[2021-01-05] MEDS: cefTRIAXone 2,000 MG in sodium chloride 0.9% (plus) 50 ML 100 MG IV (07:50)
[2021-01-05 07:55] VITALS: BP 94/64; PULSE 93; RESP 18; TEMP 36.8; O2SAT 97; BMI 34.4
--- NOTE | 2021-01-06 07:52 | SUR.PREOP ---
0716 of pt called and stated they were running late and would try to be here by 8am
[2021-01-06] MEDS: cefTRIAXone 2,000 MG in sodium chloride 0.9% (plus) 50 ML 100 MG IV (08:45)
[2021-01-06 09:02] VITALS: BP 93/63; PULSE 93; RESP 16; TEMP 36.4; O2SAT 99
[2021-01-07 11:23] VITALS: BP 104/77; PULSE 91; RESP 18; TEMP 36.7; O2SAT 98
[2021-01-07] MEDS: cefTRIAXone 2,000 MG in sodium chloride 0.9% (plus) 50 ML 100 MG IV (11:32)
[2021-01-08 11:50] VITALS: BP 97/71; PULSE 85; RESP 18; TEMP 36.4; O2SAT 99
[2021-01-08] MEDS: cefTRIAXone 2,000 MG in sodium chloride 0.9% (plus) 50 ML 100 MG IV (11:53)
[2021-01-09] MEDS: cefTRIAXone 2,000 MG in sodium chloride 0.9% (plus) 50 ML 100 MG IV (11:28)
[2021-01-09 11:32] VITALS: BP 100/70; PULSE 86; RESP 18; TEMP 36.1; O2SAT 98
[2021-01-10] MEDS: cefTRIAXone 2,000 MG in sodium chloride 0.9% (plus) 50 ML 100 MG IV (11:08)
[2021-01-10 11:12] VITALS: BP 93/58; PULSE 88; RESP 18; TEMP 36.3; O2SAT 97
--- NOTE | 2021-01-10 11:14 | PC.NURSE ---
Pt to have surgery tomorrow on right foot by Dr. Frey. Midline cath to right upper arm to be exchanged tomorrow prior to surgery. IV Ceftriaxone 2 gm to be continued for 14 more days.
[2021-01-12] MEDS: cefTRIAXone 2,000 MG in sodium chloride 0.9% (plus) 50 ML 100 MG IV (15:30)
[2021-01-12 15:51] VITALS: BP 96/73; PULSE 103; RESP 18; TEMP 37.1; O2SAT 100
[2021-01-13] MEDS: cefTRIAXone 2,000 MG in sodium chloride 0.9% (plus) 50 ML 100 MG IV (15:35)
[2021-01-13 16:21] VITALS: BP 81/56; PULSE 89; RESP 18; TEMP 36.6; O2SAT 97
[2021-01-14 11:45] VITALS: BP 94/67; PULSE 84; RESP 18; TEMP 36.2; O2SAT 98
[2021-01-14] MEDS: cefTRIAXone 2,000 MG in sodium chloride 0.9% (plus) 50 ML 100 MG IV (11:58)
[2021-01-15 08:15] VITALS: BP 92/65; PULSE 98; RESP 18; TEMP 36.7; O2SAT 98
[2021-01-15] MEDS: cefTRIAXone 2,000 MG in sodium chloride 0.9% (plus) 50 ML 100 MG IV (08:17)
[2021-01-16] MEDS: cefTRIAXone 2,000 MG in sodium chloride 0.9% (plus) 50 ML 100 MG IV (11:46)
[2021-01-16 11:51] VITALS: BP 94/64; PULSE 82; RESP 18; TEMP 36.6; O2SAT 100
[2021-01-17 11:35] VITALS: BP 95/68; PULSE 83; RESP 18; TEMP 36.1; O2SAT 98
[2021-01-17] MEDS: cefTRIAXone 2,000 MG in sodium chloride 0.9% (plus) 50 ML 100 MG IV (11:42)
[2021-01-18 08:48] VITALS: BP 110/67; PULSE 85; RESP 18; TEMP 36.7; O2SAT 99
[2021-01-18] MEDS: cefTRIAXone 2,000 MG in sodium chloride 0.9% (plus) 50 ML 100 MG IV (08:55)
[2021-01-19] MEDS: cefTRIAXone 2,000 MG in sodium chloride 0.9% (plus) 50 ML 100 MG IV (11:50)
[2021-01-19 12:01] VITALS: BP 103/70; PULSE 82; RESP 18; TEMP 37; O2SAT 98
[2021-01-20] MEDS: cefTRIAXone 2,000 MG in sodium chloride 0.9% (plus) 50 ML 100 MG IV (15:10)
[2021-01-20 16:05] VITALS: BP 89/60; PULSE 92; RESP 18; TEMP 36.3; O2SAT 99
[2021-01-21 12:15] VITALS: BP 98/65; PULSE 82; RESP 18; TEMP 36.7; O2SAT 99
[2021-01-21] MEDS: cefTRIAXone 2,000 MG in sodium chloride 0.9% (plus) 50 ML 100 MG IV (12:20)
[2021-01-22] MEDS: cefTRIAXone 2,000 MG in sodium chloride 0.9% (plus) 50 ML 100 MG IV (11:54)
[2021-01-22 12:02] VITALS: BP 97/66; PULSE 74; RESP 18; TEMP 36; O2SAT 100
[2021-01-23 12:00] VITALS: BP 95/60; PULSE 70; RESP 18; TEMP 36.1; O2SAT 98
[2021-01-23] MEDS: cefTRIAXone 2,000 MG in sodium chloride 0.9% (plus) 50 ML 100 MG IV (12:15)
[2021-01-24 13:58] VITALS: BP 89/60; PULSE 69; RESP 18; TEMP 36.3; O2SAT 98
[2021-01-26] MEDS: cefTRIAXone 2,000 MG in sodium chloride 0.9% (plus) 50 ML 100 MG IV (12:30)
[2021-01-26 12:37] VITALS: BP 107/69; PULSE 82; RESP 18; TEMP 36.7; O2SAT 97
[2021-01-27] MEDS: cefTRIAXone 2,000 MG in sodium chloride 0.9% (plus) 50 ML 100 MG IV (12:55)
[2021-01-27 14:13] VITALS: BP 115/76; PULSE 84; RESP 18; TEMP 36.3; O2SAT 98
[2021-01-28 11:35] VITALS: BP 120/78; PULSE 80; RESP 18; TEMP 36.2; O2SAT 98
[2021-01-28] MEDS: cefTRIAXone 2,000 MG in sodium chloride 0.9% (plus) 50 ML 100 MG IV ×2 (11:37→12:53)
--- NOTE | 2021-01-28 13:11 | PC.NURSE ---
Pt did not receive dose of Rocephin on Thursday01/25/21. Pt saw Dr. Frey in the office that day. Orders received Thursday01/25/21 to continue IV Rocephin for 14 more days and to continue wet-to-dry betadine dressing changes to right foot every other day. Pt started day one of 14 days on Thursday01/26/21 and is scheduled to finish on February 08.
[2021-01-29 11:42] VITALS: BP 109/76; PULSE 68; RESP 18; TEMP 36.4; O2SAT 98
[2021-01-29] MEDS: cefTRIAXone 2,000 MG in sodium chloride 0.9% (plus) 50 ML 100 MG IV (11:52)
[2021-01-30] MEDS: cefTRIAXone 2,000 MG in sodium chloride 0.9% (plus) 50 ML 100 MG IV (11:52)
[2021-01-30 12:15] VITALS: BP 97/67; PULSE 71; RESP 18; TEMP 36; O2SAT 97
[2021-01-30 12:33] LABS: Basophils # 0.1 10^3/uL (0.0-0.1); Basophils % 1.4 %; Eosinophils % 12.2 %; Hematocrit 43.8 % (42.0-52.0); Lymphocytes # 2.6 10^3/uL (0.8-4.8); Mean Corpuscular Hemoglobin 28.6 pg (28.0-34.0); Mean Corpuscular Volume 89.6 fL (80-94); Monocytes # 0.5 10^3/uL (0.2-0.9); Monocytes % 5.8 %; Neutrophils # 4.15 10^3/uL (1.8-7.7); Neutrophils % 49.2 %; Nucleated Red Blood Cells % 0 %; Platelet Count 249 10^3/cmm (130-400); Red Blood Count 4.89 10^6/uL (4.1-5.3); Red Cell Distribution Width 17.2 % (12.1-15.1); White Blood Count 8.4 10^3/uL (4.0-10.0)
[2021-01-30 12:57] LABS: Anion Gap 13.8 (5-19); Blood Urea Nitrogen 16 mg/dL (6-20); Calcium 8.6 mg/dL (8.5-10.5); Carbon Dioxide 27 mmol/L (22-29); Chloride 103 mmol/L (98-107); Glomerular Filtration Rate 90.1 mL/min (90-130); Glucose 139 mg/dL (65-115); Osmolality Calculated 291 mOsm/kg (285-295); Potassium 4.8 mmol/L (3.5-5.1); Sodium 139 mmol/L (136-145)
[2021-01-30 13:14] LABS: Erythrocyte Sedimentation Rate 14 mm/hr (0-10)
[2021-01-30 14:26] LABS: Estmated Average Glucose 131; Hemoglobin A1C 6.2 % (4.0-6.0)
[2021-01-31] MEDS: cefTRIAXone 2,000 MG in sodium chloride 0.9% (plus) 50 ML 100 MG IV (11:25)
[2021-01-31 11:30] VITALS: BP 98/66; PULSE 72; RESP 18; TEMP 36.3; O2SAT 98
[2021-02-01 11:40] VITALS: BP 113/86; PULSE 77; RESP 18; TEMP 36.4; O2SAT 98
[2021-02-01] MEDS: cefTRIAXone 2,000 MG in sodium chloride 0.9% (plus) 50 ML 100 MG IV (11:40)
== END 2021-02-01 23:59 | disposition home or self-care (01) ==
LOC: OPS 11:36
PROVIDERS: PCP Nurse Practitioner Family; Visit Provider Podiatrist Foot & Ankle Surgery
DX: L97.514 Non-pressure chronic ulcer of other part of right foot with necrosis of bone (principal); Z89.431 Acquired absence of right foot; Z48.89 Encounter for other specified surgical aftercare
CPT/HCPCS: 15852; 36415; 73630; 80048; 83036; 85025; 85651; 86140; 87635; 96365; J0696

== ENCOUNTER 2021-02-08 11:54 | Outpatient (RCR) | payer MEDICARE, MEDICAID, SELFPAY ==
[2021-02-02] MEDS: cefTRIAXone 2,000 MG in sodium chloride 0.9% (plus) 50 ML 100 MG IV (12:15)
[2021-02-02 13:48] VITALS: BMI 35.7
[2021-02-02 13:50] VITALS: BP 94/65; PULSE 76; RESP 18; TEMP 36.1; O2SAT 98
[2021-02-03] MEDS: cefTRIAXone 2,000 MG in sodium chloride 0.9% (plus) 50 ML 100 MG IV (11:40)
[2021-02-03 12:28] VITALS: BP 90/61; PULSE 78; RESP 18; TEMP 36.3; O2SAT 99
[2021-02-04] MEDS: cefTRIAXone 2,000 MG in sodium chloride 0.9% (plus) 50 ML 100 MG IV (11:47)
[2021-02-04 12:11] VITALS: BP 107/66; PULSE 79; RESP 18; TEMP 36.2; O2SAT 98
--- NOTE | 2021-02-05 11:30 | PC.NURSE ---
Wound care:Wet-to-dry dressing with betadine gauze to incision line, followed with dry 4x4's, Kerlix, and VERONIKA wrap. Suture line to right foot flap with edges well approximated. Eschar noted to suture line. Small area middle of incision line with slight maceration and redness noted. Pt states it is tender in this spot as well. Pt encouraged to stay off foot as much as possible. Tolerated dressing change well.
[2021-02-05] MEDS: cefTRIAXone 2,000 MG in sodium chloride 0.9% (plus) 50 ML 100 MG IV (11:38)
[2021-02-05 11:46] VITALS: BP 108/74; PULSE 75; RESP 18; TEMP 36.1; O2SAT 97
[2021-02-06] MEDS: cefTRIAXone 2,000 MG in sodium chloride 0.9% (plus) 50 ML 100 MG IV (11:20)
[2021-02-06 11:26] VITALS: BP 103/69; PULSE 74; RESP 18; TEMP 36.4; O2SAT 97
[2021-02-07 11:52] VITALS: BP 107/63; PULSE 74; RESP 18; TEMP 36.2; O2SAT 98
[2021-02-07] MEDS: cefTRIAXone 2,000 MG in sodium chloride 0.9% (plus) 50 ML 100 MG IV (12:08)
[2021-02-08] MEDS: cefTRIAXone 2,000 MG in sodium chloride 0.9% (plus) 50 ML 100 MG IV (12:07)
[2021-02-08 12:08] VITALS: BP 104/74; PULSE 72; RESP 16; TEMP 36.8; O2SAT 92
== END 2021-03-04 23:59 | disposition home or self-care (01) ==
LOC: OPS 11:54
PROVIDERS: PCP Nurse Practitioner Family; Visit Provider Podiatrist Foot & Ankle Surgery
DX: M86.8X7 Other osteomyelitis, ankle and foot (principal); M87.874 Other osteonecrosis, right foot; E11.51 Type 2 diabetes mellitus with diabetic peripheral angiopathy without gangrene
CPT/HCPCS: 15852; 96365; J0696

== ENCOUNTER → 2021-02-21 08:34 | Outpatient (BNVA) | payer OTHER, MEDICAID, SELFPAY | PROVIDERS: PCP Nurse Practitioner Family; Visit Provider Podiatrist Foot & Ankle Surgery | DX: Z98.890 Other specified postprocedural states (principal); M86.9 Osteomyelitis, unspecified | CPT/HCPCS: 73630 ==

== ENCOUNTER 2021-02-21 09:15 | Outpatient (CLI) | payer MEDICARE, MEDICAID, SELFPAY ==
[2021-02-21 09:52] LABS: Basophils # 0.1 10^3/uL (0.0-0.1); Basophils % 1.2 %; Eosinophils # 0.2 10^3/uL (0.0-0.8); Eosinophils % 2.5 %; Hematocrit 51.6 % (42.0-52.0); Lymphocytes # 2.2 10^3/uL (0.8-4.8); Lymphocytes % 29.1 %; Mean Corpuscular HGB Conc 32.9 g/dL (30.0-36.0); Mean Corpuscular Hemoglobin 28.7 pg (28.0-34.0); Mean Corpuscular Volume 87.2 fL (80-94); Mean Platelet Volume 10.4 fL (7.4-10.4); Monocytes # 0.6 10^3/uL (0.2-0.9); Neutrophils % 58.9 %; Nucleated Red Blood Cells % 0 %; Platelet Count 279 10^3/cmm (130-400); Red Blood Count 5.92 10^6/uL (4.1-5.3); Red Cell Distribution Width 15.1 % (12.1-15.1); White Blood Count 7.6 10^3/uL (4.0-10.0)
[2021-02-21 10:16] LABS: Blood Urea Nitrogen 24 mg/dL (6-20); C Reactive Protein 3.1 mg/L (0.0-4.9); Calcium 9.2 mg/dL (8.5-10.5); Carbon Dioxide 27 mmol/L (22-29); Chloride 97 mmol/L (98-107); Glomerular Filtration Rate 71.1 mL/min (90-130); Glucose 148 mg/dL (65-115); Osmolality Calculated 291 mOsm/kg (285-295); Sodium 137 mmol/L (136-145)
[2021-02-21 10:44] LABS: Erythrocyte Sedimentation Rate 7 mm/hr (0-10)
== END 2021-02-21 09:16 | disposition home or self-care (01) ==
PROVIDERS: PCP Nurse Practitioner Family; Visit Provider Podiatrist Foot & Ankle Surgery
DX: M86.9 Osteomyelitis, unspecified (principal); Z89.411 Acquired absence of right great toe
CPT/HCPCS: 36415; 80048; 85025; 85651; 86140

== ENCOUNTER 2021-04-11 10:40 | Outpatient (CLI) | payer MEDICARE, MEDICAID, SELFPAY | END 2021-04-11 10:41 | disposition home or self-care (01) | LOC: SPT 10:41 | PROVIDERS: PCP Nurse Practitioner Family; Visit Provider Podiatrist Foot & Ankle Surgery | DX: Z48.89 Encounter for other specified surgical aftercare (principal); Z89.431 Acquired absence of right foot; L97.512 Non-pressure chronic ulcer of other part of right foot with fat layer exposed; E11.42 Type 2 diabetes mellitus with diabetic polyneuropathy | CPT/HCPCS: 97760; L4361 ==

== ENCOUNTER → 2021-04-19 09:59 | Outpatient (BNVA) | payer MEDICARE, MEDICAID, SELFPAY | PROVIDERS: PCP Nurse Practitioner Family; Visit Provider Nurse Practitioner Family | DX: R30.0 Dysuria (principal); N39.0 Urinary tract infection, site not specified | CPT/HCPCS: 81000; 87077; 87086; 87184 ==

== ENCOUNTER → 2021-07-22 14:18 | Outpatient (BNVA) | payer MEDICARE, MEDICAID, SELFPAY | PROVIDERS: PCP Nurse Practitioner Family; Visit Provider Nurse Practitioner Family | DX: E11.52 Type 2 diabetes mellitus with diabetic peripheral angiopathy with gangrene (principal); Z79.4 Long term (current) use of insulin; I10 Essential (primary) hypertension; R60.0 Localized edema | CPT/HCPCS: 80053; 83036 ==

== ENCOUNTER → 2021-09-03 14:04 | Outpatient (BNVA) | payer MEDICARE, MEDICAID, SELFPAY | PROVIDERS: PCP Nurse Practitioner Family; Referring Provider Nurse Practitioner Family; Visit Provider Internal Medicine | DX: E11.42 Type 2 diabetes mellitus with diabetic polyneuropathy (principal); E11.49 Type 2 diabetes mellitus with other diabetic neurological complication; Z89.431 Acquired absence of right foot; I73.9 Peripheral vascular disease, unspecified; E78.5 Hyperlipidemia, unspecified; Z95.5 Presence of coronary angioplasty implant and graft; Z79.4 Long term (current) use of insulin; F17.200 Nicotine dependence, unspecified, uncomplicated | CPT/HCPCS: 99204 ==

== ENCOUNTER 2021-09-11 14:07 | Outpatient (CLI) | payer MEDICARE, MEDICAID, SELFPAY | END 2021-09-11 14:08 | disposition home or self-care (01) | LOC: WOUND 14:08 | PROVIDERS: PCP Nurse Practitioner Family; Visit Provider Thoracic Surgery (Cardiothoracic Vascular Surgery) | DX: I96 Gangrene, not elsewhere classified (principal); E11.621 Type 2 diabetes mellitus with foot ulcer; L97.522 Non-pressure chronic ulcer of other part of left foot with fat layer exposed; F17.210 Nicotine dependence, cigarettes, uncomplicated; I10 Essential (primary) hypertension | CPT/HCPCS: 11042; G0463 ==

== ENCOUNTER 2021-09-18 15:24 | Outpatient (CLI) | payer MEDICARE, MEDICAID, SELFPAY | END 2021-09-18 15:25 | disposition home or self-care (01) | LOC: WOUND 15:25 | PROVIDERS: PCP Nurse Practitioner Family; Visit Provider Thoracic Surgery (Cardiothoracic Vascular Surgery) | DX: I96 Gangrene, not elsewhere classified (principal); E11.621 Type 2 diabetes mellitus with foot ulcer; L97.522 Non-pressure chronic ulcer of other part of left foot with fat layer exposed; F17.210 Nicotine dependence, cigarettes, uncomplicated | CPT/HCPCS: 11042 ==

== ENCOUNTER 2021-09-25 10:34 | Outpatient (CLI) | payer MEDICARE, MEDICAID, SELFPAY | END 2021-09-25 10:35 | disposition home or self-care (01) | LOC: WOUND 10:34 | PROVIDERS: PCP Nurse Practitioner Family; Visit Provider Nurse Practitioner Family | DX: I96 Gangrene, not elsewhere classified (principal); E11.621 Type 2 diabetes mellitus with foot ulcer; L97.521 Non-pressure chronic ulcer of other part of left foot limited to breakdown of skin; F17.210 Nicotine dependence, cigarettes, uncomplicated | CPT/HCPCS: 11042 ==

== ENCOUNTER 2021-10-02 09:26 | Outpatient (CLI) | payer MEDICARE, MEDICAID, SELFPAY | END 2021-10-02 09:27 | disposition home or self-care (01) | PROVIDERS: PCP Nurse Practitioner Family; Visit Provider Nurse Practitioner Family | DX: E11.621 Type 2 diabetes mellitus with foot ulcer (principal); L97.524 Non-pressure chronic ulcer of other part of left foot with necrosis of bone; F17.210 Nicotine dependence, cigarettes, uncomplicated; I10 Essential (primary) hypertension; Z89.431 Acquired absence of right foot | CPT/HCPCS: 11042; 73630; 87070; 87077; 87176; 87186; 87205 ==

== ENCOUNTER 2021-10-02 10:28 | Outpatient (CLI) | payer MEDICARE, MEDICAID, SELFPAY ==
--- NOTE | 2021-10-02 10:34 | XR_ITS ---
WS: [id number] Right foot, 3 views, 10/02/2021 Clinical Data: TYPE II DM W/FOOT ULCER Comparison: Right foot, 02/21/2021. Findings: There has been amputation of the forefoot with only the bases of the first through fifth metacarpals remaining. The tarsal bones are intact. There is an Achilles spur. The soft tissues show no change. XR/XR foot RT min 3V* [id number] Impression: No change in amputation of right forefoot.
== END 2021-10-02 10:29 | disposition home or self-care (01) ==
LOC: RAD 10:33
PROVIDERS: PCP Nurse Practitioner Family; Visit Provider Nurse Practitioner Family
DX: E11.621 Type 2 diabetes mellitus with foot ulcer (principal); Z89.431 Acquired absence of right foot
CPT/HCPCS: 73630

== ENCOUNTER 2021-10-09 09:17 | Outpatient (CLI) | payer MEDICARE, MEDICAID, SELFPAY | END 2021-10-09 09:18 | disposition home or self-care (01) | LOC: WOUND 09:18 | PROVIDERS: PCP Nurse Practitioner Family; Visit Provider Thoracic Surgery (Cardiothoracic Vascular Surgery) | DX: I96 Gangrene, not elsewhere classified (principal); E11.621 Type 2 diabetes mellitus with foot ulcer; L97.524 Non-pressure chronic ulcer of other part of left foot with necrosis of bone; F17.210 Nicotine dependence, cigarettes, uncomplicated; I10 Essential (primary) hypertension | CPT/HCPCS: 11043 ==

== ENCOUNTER 2021-10-16 09:15 | Outpatient (CLI) | payer MEDICARE, MEDICAID, SELFPAY | END 2021-10-16 09:16 | disposition home or self-care (01) | LOC: WOUND 09:17 | PROVIDERS: PCP Nurse Practitioner Family; Visit Provider Thoracic Surgery (Cardiothoracic Vascular Surgery) | DX: I96 Gangrene, not elsewhere classified (principal); E11.621 Type 2 diabetes mellitus with foot ulcer; L97.526 Non-pressure chronic ulcer of other part of left foot with bone involvement without evidence of necrosis; F17.210 Nicotine dependence, cigarettes, uncomplicated | CPT/HCPCS: 11043 ==

== ENCOUNTER 2021-10-23 09:17 | Outpatient (CLI) | payer MEDICARE, MEDICAID, SELFPAY | END 2021-10-23 09:18 | disposition home or self-care (01) | LOC: WOUND 09:23 | PROVIDERS: PCP Nurse Practitioner Family; Visit Provider Nurse Practitioner Family | DX: E11.621 Type 2 diabetes mellitus with foot ulcer (principal); L97.522 Non-pressure chronic ulcer of other part of left foot with fat layer exposed; F17.210 Nicotine dependence, cigarettes, uncomplicated; I10 Essential (primary) hypertension | CPT/HCPCS: 11042 ==

== ENCOUNTER 2021-10-30 08:16 | Outpatient (CLI) | payer MEDICARE, MEDICAID, SELFPAY | END 2021-10-30 08:17 | disposition home or self-care (01) | LOC: WOUND 08:17 | PROVIDERS: PCP Nurse Practitioner Family; Visit Provider Thoracic Surgery (Cardiothoracic Vascular Surgery) | DX: I96 Gangrene, not elsewhere classified (principal); E11.621 Type 2 diabetes mellitus with foot ulcer; L97.526 Non-pressure chronic ulcer of other part of left foot with bone involvement without evidence of necrosis; F17.210 Nicotine dependence, cigarettes, uncomplicated | CPT/HCPCS: 11042 ==

== ENCOUNTER 2021-10-31 16:32 | Outpatient (CLI) | payer MEDICARE, MEDICAID, SELFPAY | END 2021-10-31 16:33 | disposition home or self-care (01) | LOC: SPT 16:32 | PROVIDERS: PCP Nurse Practitioner Family; Visit Provider Nurse Practitioner Family | DX: R26.89 Other abnormalities of gait and mobility (principal) | CPT/HCPCS: 97760 ==

== ENCOUNTER 2021-11-13 10:16 | Outpatient (CLI) | payer MEDICARE, MEDICAID, SELFPAY | END 2021-11-13 10:17 | disposition home or self-care (01) | LOC: WOUND 10:17 | PROVIDERS: PCP Nurse Practitioner Family; Visit Provider Thoracic Surgery (Cardiothoracic Vascular Surgery) | DX: I96 Gangrene, not elsewhere classified (principal); E11.621 Type 2 diabetes mellitus with foot ulcer; L97.522 Non-pressure chronic ulcer of other part of left foot with fat layer exposed; F17.210 Nicotine dependence, cigarettes, uncomplicated | CPT/HCPCS: 11042; A6197 ==

== ENCOUNTER 2021-11-20 09:16 | Outpatient (CLI) | payer MEDICARE, MEDICAID, SELFPAY | END 2021-11-20 09:17 | disposition home or self-care (01) | LOC: WOUND 09:17 | PROVIDERS: PCP Nurse Practitioner Family; Visit Provider Thoracic Surgery (Cardiothoracic Vascular Surgery) | DX: I96 Gangrene, not elsewhere classified (principal); E11.621 Type 2 diabetes mellitus with foot ulcer; L97.526 Non-pressure chronic ulcer of other part of left foot with bone involvement without evidence of necrosis; F17.210 Nicotine dependence, cigarettes, uncomplicated | CPT/HCPCS: 11042; A6197; A6250 ==

== ENCOUNTER 2021-12-03 13:46 | Outpatient (CLI) | payer MEDICARE, MEDICAID, SELFPAY ==
--- NOTE | 2021-12-03 14:09 | XRR_ITS ---
PROCEDURE INFORMATION: Exam: XR Right Foot Exam date and time: 12/03/2021 2:09 PM Age: 51 years old Clinical indication: Condition or disease; Other: Foot ulcer/? Osteomyelitis; Prior surgery; Patient HX: Has had part of foot amputated. Due to cow stepping on foot. Has diabetic ulcer on foot that has to be packed. ; Additional info: Type ii dm w/foot ulcer/? Osteomyelitis TECHNIQUE: Imaging protocol: XR Right foot. Views: 3 or more views. COMPARISON: CR XR foot RT min 3V* [id number] 10/02/2021 10:45 AM FINDINGS: Bones/joints: There is amputation of the forefoot at the level of the proximal shaft of the metatarsals. No acute bony abnormalities seen. There is no evidence of osteomyelitis. Soft tissues: Soft tissue effusion is seen on the plantar aspect of the foot. This finding is similar to prior examination XR/XR foot RT min 3V* [id number] IMPRESSION: 1. Amputation of the forefoot stable since prior 2. Otherwise No acute findings. 3. Soft tissue effusion plantar foot stable since prior
== END 2021-12-03 13:47 | disposition home or self-care (01) ==
LOC: RAD 13:52
PROVIDERS: PCP Nurse Practitioner Family; Visit Provider Thoracic Surgery (Cardiothoracic Vascular Surgery)
DX: E11.621 Type 2 diabetes mellitus with foot ulcer (principal); Z89.431 Acquired absence of right foot
CPT/HCPCS: 73630

== ENCOUNTER 2021-12-04 10:33 | Outpatient (CLI) | payer MEDICARE, MEDICAID, SELFPAY | END 2021-12-04 10:34 | disposition home or self-care (01) | LOC: WOUND 10:34 | PROVIDERS: PCP Nurse Practitioner Family; Visit Provider Thoracic Surgery (Cardiothoracic Vascular Surgery) | DX: I96 Gangrene, not elsewhere classified (principal); E11.621 Type 2 diabetes mellitus with foot ulcer; L97.522 Non-pressure chronic ulcer of other part of left foot with fat layer exposed; F17.210 Nicotine dependence, cigarettes, uncomplicated; E11.42 Type 2 diabetes mellitus with diabetic polyneuropathy; E11.49 Type 2 diabetes mellitus with other diabetic neurological complication; I73.9 Peripheral vascular disease, unspecified; Z95.5 Presence of coronary angioplasty implant and graft; Z89.431 Acquired absence of right foot; Z79.4 Long term (current) use of insulin | CPT/HCPCS: 97597; 99214; A6197; A6250 ==

== ENCOUNTER 2021-12-11 10:34 | Outpatient (CLI) | payer MEDICARE, MEDICAID, SELFPAY | END 2021-12-11 10:35 | disposition home or self-care (01) | LOC: WOUND 10:35 | PROVIDERS: PCP Nurse Practitioner Family; Visit Provider Thoracic Surgery (Cardiothoracic Vascular Surgery) | DX: E11.621 Type 2 diabetes mellitus with foot ulcer (principal); I96 Gangrene, not elsewhere classified; L97.522 Non-pressure chronic ulcer of other part of left foot with fat layer exposed; F17.210 Nicotine dependence, cigarettes, uncomplicated | CPT/HCPCS: 97597; 99212; A6197; A6250 ==

== ENCOUNTER 2021-12-18 10:29 | Outpatient (CLI) | payer MEDICARE, MEDICAID, SELFPAY | END 2021-12-18 10:30 | disposition home or self-care (01) | LOC: WOUND 10:30 | PROVIDERS: PCP Nurse Practitioner Family; Visit Provider Thoracic Surgery (Cardiothoracic Vascular Surgery) | DX: E11.622 Type 2 diabetes mellitus with other skin ulcer (principal); L97.522 Non-pressure chronic ulcer of other part of left foot with fat layer exposed; F17.210 Nicotine dependence, cigarettes, uncomplicated | CPT/HCPCS: 11042; A6197 ==

== ENCOUNTER → 2021-12-25 10:34 | Outpatient (BNVA) | payer MEDICARE, MEDICAID, SELFPAY | PROVIDERS: PCP Nurse Practitioner Family; Visit Provider Thoracic Surgery (Cardiothoracic Vascular Surgery) | DX: E11.621 Type 2 diabetes mellitus with foot ulcer (principal); L97.522 Non-pressure chronic ulcer of other part of left foot with fat layer exposed | CPT/HCPCS: 97597; A6197; A6250 ==

== ENCOUNTER → 2022-01-01 10:13 | Outpatient (BNVA) | payer MEDICARE, MEDICAID, SELFPAY | PROVIDERS: PCP Nurse Practitioner Family; Visit Provider Thoracic Surgery (Cardiothoracic Vascular Surgery) | DX: E11.621 Type 2 diabetes mellitus with foot ulcer (principal); I96 Gangrene, not elsewhere classified; L97.512 Non-pressure chronic ulcer of other part of right foot with fat layer exposed | CPT/HCPCS: 11042; A6197 ==

== ENCOUNTER → 2022-01-08 09:11 | Outpatient (BNVA) | payer MEDICARE, MEDICAID, SELFPAY | PROVIDERS: PCP Nurse Practitioner Family; Visit Provider Thoracic Surgery (Cardiothoracic Vascular Surgery) | DX: E11.621 Type 2 diabetes mellitus with foot ulcer (principal); I96 Gangrene, not elsewhere classified; L97.512 Non-pressure chronic ulcer of other part of right foot with fat layer exposed | CPT/HCPCS: 11044; A6197; A6250 ==

== ENCOUNTER → 2022-01-15 08:52 | Outpatient (BNVA) | payer MEDICARE, MEDICAID, SELFPAY | PROVIDERS: PCP Nurse Practitioner Family; Visit Provider Thoracic Surgery (Cardiothoracic Vascular Surgery) | DX: E11.621 Type 2 diabetes mellitus with foot ulcer (principal); I96 Gangrene, not elsewhere classified; L97.512 Non-pressure chronic ulcer of other part of right foot with fat layer exposed; F17.210 Nicotine dependence, cigarettes, uncomplicated | CPT/HCPCS: 97597; A6197; A6250 ==

== ENCOUNTER → 2022-01-22 09:00 | Outpatient (BNVA) | payer MEDICARE, MEDICAID, SELFPAY | PROVIDERS: PCP Nurse Practitioner Family; Visit Provider Nurse Practitioner Family | DX: E11.621 Type 2 diabetes mellitus with foot ulcer (principal); L97.512 Non-pressure chronic ulcer of other part of right foot with fat layer exposed; I96 Gangrene, not elsewhere classified | CPT/HCPCS: 11042; A6250 ==

== ENCOUNTER → 2022-01-29 09:05 | Outpatient (BNVA) | payer MEDICARE, MEDICAID, SELFPAY | PROVIDERS: PCP Nurse Practitioner Family; Visit Provider Thoracic Surgery (Cardiothoracic Vascular Surgery) | DX: E11.621 Type 2 diabetes mellitus with foot ulcer (principal); L97.512 Non-pressure chronic ulcer of other part of right foot with fat layer exposed; I96 Gangrene, not elsewhere classified | CPT/HCPCS: 11042; A6250 ==

== ENCOUNTER → 2022-01-30 13:07 | Outpatient (BNVA) | payer MEDICARE, MEDICAID, SELFPAY | PROVIDERS: PCP Nurse Practitioner Family; Visit Provider Internal Medicine Cardiovascular Disease | DX: I73.9 Peripheral vascular disease, unspecified (principal); I25.10 Atherosclerotic heart disease of native coronary artery without angina pectoris; I10 Essential (primary) hypertension; E78.5 Hyperlipidemia, unspecified; E11.52 Type 2 diabetes mellitus with diabetic peripheral angiopathy with gangrene; Z79.4 Long term (current) use of insulin; F17.210 Nicotine dependence, cigarettes, uncomplicated | CPT/HCPCS: 99214 ==

== ENCOUNTER → 2022-02-05 08:50 | Outpatient (BNVA) | payer MEDICARE, MEDICAID, SELFPAY | PROVIDERS: PCP Nurse Practitioner Family; Visit Provider Thoracic Surgery (Cardiothoracic Vascular Surgery) | DX: E11.621 Type 2 diabetes mellitus with foot ulcer (principal); L97.512 Non-pressure chronic ulcer of other part of right foot with fat layer exposed; I96 Gangrene, not elsewhere classified; F17.210 Nicotine dependence, cigarettes, uncomplicated | CPT/HCPCS: 97597 ==

== ENCOUNTER → 2022-02-12 08:52 | Outpatient (BNVA) | payer MEDICARE, MEDICAID, SELFPAY | PROVIDERS: PCP Nurse Practitioner Family; Visit Provider Thoracic Surgery (Cardiothoracic Vascular Surgery) | DX: E11.621 Type 2 diabetes mellitus with foot ulcer (principal); L97.512 Non-pressure chronic ulcer of other part of right foot with fat layer exposed; I96 Gangrene, not elsewhere classified; F17.210 Nicotine dependence, cigarettes, uncomplicated | CPT/HCPCS: 97597 ==

== ENCOUNTER → 2022-02-19 13:03 | Outpatient (BNVA) | payer MEDICARE, MEDICAID, SELFPAY | PROVIDERS: PCP Nurse Practitioner Family; Visit Provider Thoracic Surgery (Cardiothoracic Vascular Surgery) | DX: E11.621 Type 2 diabetes mellitus with foot ulcer (principal); L97.512 Non-pressure chronic ulcer of other part of right foot with fat layer exposed; I96 Gangrene, not elsewhere classified | CPT/HCPCS: 97597 ==

== ENCOUNTER → 2022-02-26 10:10 | Outpatient (BNVA) | payer MEDICARE, MEDICAID, SELFPAY | PROVIDERS: PCP Nurse Practitioner Family; Visit Provider Thoracic Surgery (Cardiothoracic Vascular Surgery) | DX: E11.621 Type 2 diabetes mellitus with foot ulcer (principal); L97.512 Non-pressure chronic ulcer of other part of right foot with fat layer exposed; I96 Gangrene, not elsewhere classified | CPT/HCPCS: 97597 ==

== ENCOUNTER → 2022-03-05 09:04 | Outpatient (BNVA) | payer MEDICARE, MEDICAID, SELFPAY | PROVIDERS: PCP Nurse Practitioner Family; Visit Provider Thoracic Surgery (Cardiothoracic Vascular Surgery) | DX: E11.621 Type 2 diabetes mellitus with foot ulcer (principal); L97.512 Non-pressure chronic ulcer of other part of right foot with fat layer exposed; I96 Gangrene, not elsewhere classified | CPT/HCPCS: 97597 ==

== ENCOUNTER → 2022-03-10 08:30 | Outpatient (BNVA) | payer MEDICARE, MEDICAID, SELFPAY | PROVIDERS: PCP Nurse Practitioner Family; Visit Provider Internal Medicine | DX: E11.42 Type 2 diabetes mellitus with diabetic polyneuropathy (principal); E11.49 Type 2 diabetes mellitus with other diabetic neurological complication; I73.9 Peripheral vascular disease, unspecified; Z89.431 Acquired absence of right foot; Z95.5 Presence of coronary angioplasty implant and graft; Z79.4 Long term (current) use of insulin | CPT/HCPCS: 99214 ==

== ENCOUNTER → 2022-03-12 08:42 | Outpatient (BNVA) | payer MEDICARE, MEDICAID, SELFPAY | PROVIDERS: PCP Nurse Practitioner Family; Visit Provider Nurse Practitioner Family | DX: E11.621 Type 2 diabetes mellitus with foot ulcer (principal); L97.512 Non-pressure chronic ulcer of other part of right foot with fat layer exposed; I96 Gangrene, not elsewhere classified | CPT/HCPCS: 11042; A6250 ==

== ENCOUNTER → 2022-03-19 09:05 | Outpatient (BNVA) | payer MEDICARE, MEDICAID, SELFPAY | PROVIDERS: PCP Nurse Practitioner Family; Visit Provider Nurse Practitioner Family | DX: E11.621 Type 2 diabetes mellitus with foot ulcer (principal); L97.512 Non-pressure chronic ulcer of other part of right foot with fat layer exposed; I96 Gangrene, not elsewhere classified | CPT/HCPCS: 11042 ==

== ENCOUNTER → 2022-03-26 09:18 | Outpatient (BNVA) | payer MEDICARE, MEDICAID, SELFPAY | PROVIDERS: PCP Nurse Practitioner Family; Visit Provider Nurse Practitioner Family | DX: I96 Gangrene, not elsewhere classified (principal); E11.621 Type 2 diabetes mellitus with foot ulcer; L97.512 Non-pressure chronic ulcer of other part of right foot with fat layer exposed | CPT/HCPCS: 11042 ==

== ENCOUNTER → 2022-04-09 09:45 | Outpatient (BNVA) | payer MEDICARE, MEDICAID, SELFPAY | PROVIDERS: PCP Nurse Practitioner Family; Visit Provider Thoracic Surgery (Cardiothoracic Vascular Surgery) | DX: E11.621 Type 2 diabetes mellitus with foot ulcer (principal); L97.512 Non-pressure chronic ulcer of other part of right foot with fat layer exposed; I96 Gangrene, not elsewhere classified | CPT/HCPCS: 97597 ==

== ENCOUNTER → 2022-04-23 09:45 | Outpatient (BNVA) | payer MEDICARE, MEDICAID, SELFPAY | PROVIDERS: PCP Nurse Practitioner Family; Visit Provider Thoracic Surgery (Cardiothoracic Vascular Surgery) | DX: E11.621 Type 2 diabetes mellitus with foot ulcer (principal); L97.512 Non-pressure chronic ulcer of other part of right foot with fat layer exposed; I96 Gangrene, not elsewhere classified | CPT/HCPCS: 97597; A6250 ==

== ENCOUNTER → 2022-04-30 09:12 | Outpatient (BNVA) | payer MEDICARE, MEDICAID, SELFPAY | PROVIDERS: PCP Nurse Practitioner Family; Visit Provider Nurse Practitioner Family | DX: E11.621 Type 2 diabetes mellitus with foot ulcer (principal); L97.512 Non-pressure chronic ulcer of other part of right foot with fat layer exposed; I96 Gangrene, not elsewhere classified | CPT/HCPCS: 11042 ==

== ENCOUNTER → 2022-05-07 09:47 | Outpatient (BNVA) | payer MEDICAID, SELFPAY | PROVIDERS: PCP Nurse Practitioner Family; Visit Provider Nurse Practitioner Family | DX: E11.42 Type 2 diabetes mellitus with diabetic polyneuropathy (principal); Z89.431 Acquired absence of right foot; E11.621 Type 2 diabetes mellitus with foot ulcer; L97.511 Non-pressure chronic ulcer of other part of right foot limited to breakdown of skin; I96 Gangrene, not elsewhere classified; Z79.4 Long term (current) use of insulin | CPT/HCPCS: 11042; 99214 ==

== ENCOUNTER → 2022-05-21 09:18 | Outpatient (BNVA) | payer MEDICARE, MEDICAID, SELFPAY | PROVIDERS: PCP Nurse Practitioner Family; Visit Provider Thoracic Surgery (Cardiothoracic Vascular Surgery) | DX: E11.621 Type 2 diabetes mellitus with foot ulcer (principal); L97.523 Non-pressure chronic ulcer of other part of left foot with necrosis of muscle; I96 Gangrene, not elsewhere classified | CPT/HCPCS: 97597 ==

== ENCOUNTER → 2022-05-28 09:40 | Outpatient (BNVA) | payer MEDICARE, MEDICAID, SELFPAY | PROVIDERS: PCP Nurse Practitioner Family; Visit Provider Thoracic Surgery (Cardiothoracic Vascular Surgery) | DX: Z09 Encounter for follow-up examination after completed treatment for conditions other than malignant neoplasm (principal) | CPT/HCPCS: 99212 ==

== ENCOUNTER 2022-06-05 | Day surgery (SDC) | payer MEDICARE, MEDICAID, SELFPAY | END 2022-06-05 23:00 | disposition home or self-care (01) | LOC: OPS 08-03 19:40 | PROVIDERS: PCP Nurse Practitioner Family; Visit Provider Podiatrist Foot & Ankle Surgery | DX: Z01.818 Encounter for other preprocedural examination (principal) | CPT/HCPCS: 80053; 80061; 83036; 85025 ==

== ENCOUNTER 2022-06-06 06:12 | Day surgery (SDC) | payer MEDICARE, MEDICAID, SELFPAY ==
--- NOTE | 2022-06-06 | SCC_ITS ---
Procedure done: Right tibialis anterior tendon transfer CPT code 92685 5 seconds of fluoroscopic guidance, for a cumulative dose of 0.17 mGy, was provided to Dr. Frey by the radiology department. C-arm images of the RIGHT foot were saved for the patient's permanent record. [facility]
--- NOTE | 2022-06-06 06:18 | XR_ITS ---
WS: [id number] Exam: XR foot RT min 3V* [id number] Date/Time of Exam: 06/06/2022 8:28 AM Reason For Exam: Postop tendon transfer to cuboid Comparison 12/03/2021. Postop AP and lateral images of the right foot show amputation of the forefoot. Marked degenerative changes in the midfoot joints and subtalar joints. Residual air in the soft tissu es of the amputation stump. Posterior heel spur. No other significant finding on this limited series.
[2022-06-06 06:33] VITALS: BP 133/85; PULSE 98; RESP 16; TEMP 36.6; O2SAT 96
[2022-06-06] MEDS: sodium chloride 0.9% 1,000 ML 30 ML IV (06:40)
[2022-06-06 06:44] LABS: Glucose Point of Care 164 mg/dL (70-110)
--- NOTE | 2022-06-06 06:55 | W.PM.OPSUD ---
Surgery/Procedure H&P Update DATE OF PROCEDURE: June 06, 2022 DATE H&P PERFORMED: 05/07/22 CHANGES TO PREVIOUS DOCUMENTATION: None PREOP DIAGNOSIS: Forefoot varus PLANNED PROCEDURE: Operation Date: 06/06/22 07:30 Proposed Procedures p Tibialis anterior tendon transfer right foot 74042,M21.6x1,Q66.31(Right) - Bhargav Frey DPM
--- NOTE | 2022-06-06 07:01 | P.ANESASSM_ITS ---
Pre-Anesthetic Assessment Height/Weight: Height 1.55 m Weight 117.934 kg Temp Pulse Resp BP Pulse Ox O2 Del Method 97.8 F 98 16 133/85 96 06/06/22 06:33 06/06/22 06:33 06/06/22 06:33 06/06/22 06:33 06/06/22 06:33 06/06/22 06:33 Preop Diagnosis: Forefoot varus Operation Date: 06/06/22 07:30 Proposed Procedures p Tibialis anterior tendon transfer right foot 71618,M21.6x1,Q66.31(Right) - Bhargav Frey DPM Familial anesthetic complications: None Was Beta Jesus taken within 24 hours: N/A Was Clonidine taken within 24 hours: N/A Last intake: Intake Last Liquid Date 06/05/22 Last Liquid Time 23:00 Last Solid Date 06/05/22 Last Solid Time 20:00 Social Tobacco and No alcohol Exam alert, oriented x 3, clear to auscultation bilaterally and regular rate & rhythm Airway Mallampati: Class I Dentition: other (no teeth) Comments: Comments: fullbeard, large neck circumference CV/HEM Arrythmia (transient a flutter with previous hospitalization), Coronary Artery Disease (stents > 1 year ago), Hypertension and Peripheral Vascular Disease Metabolic Diabetes Mellitus, Hyperlipidemia and Morbid Obesity Anesthetic Plan ASA status: 4 Anesthesia: MAC Risk of > 500 ml blood loss (7ml/kg in children): No Medications/Allergies Home Medications Medication Instructions Recorded Confirmed Last Taken Type lisinopril 2.5 mg tablet 2.5 mg PO DAILY@05/03/20 06/06/22 06/05/22 History aspirin 81 mg tablet,delayed 81 mg PO DAILY@11/29/20 06/06/22 06/06/22 History release (Adult Aspirin Regimen) acetaminophen 500 mg tablet 1,500 mg PO PRN pain 12/05/20 06/05/22 01/10/21 History (Tylenol Extra Strength) cam boot #1 ea 04/11/21 06/05/22 Unknown Rx Diabetic Shoes with a toe filler #1 ea 05/27/21 06/05/22 Unknown Rx to the right Diabetic shoes with 3 pairs of #1 ea 06/18/21 06/05/22 Unknown Rx inserts and toe fillers bilaterally Diabetic shoes with inserts and #1 ea 07/12/21 06/05/22 Unknown Rx bilateral toe fillers blood sugar diagnostic (ReliOn #360 ea 09/03/21 06/05/22 Unknown Rx Prime Test Strips) blood-glucose meter (ReliOn Micro #1 ea 09/03/21 06/05/22 Unknown Rx Glucose Monitor) blood-glucose meter,continuous #1 ea 09/03/21 06/05/22 Unknown Rx (Dexcom G6 Sales Representative [employer]) flash glucose scanning reader #1 ea 09/03/21 06/05/22 Unknown Rx (FreeStyle Bear 2 [place]) flash glucose sensor (FreeStyle #1 ea 09/03/21 06/05/22 Unknown Rx Bear 2 Sensor) blood-glucose sensor (Dexcom G6 #3 ea 10/07/21 06/05/22 Unknown Rx Sensor) atorvastatin 40 mg tablet See Rx Instructions .Route 10/23/21 06/06/22 06/05/22 Rx .COMPLEX #90 tabs pen needle, diabetic 31 gauge x #100 ea 11/04/21 06/05/22 Unknown Rx 5/16 (Easy Comfort Pen Magazine) fluconazole 100 mg tablet 100 mg PO DAILY PRN yeast 01/30/22 06/05/22 Unknown History (Diflucan) insulin detemir U-100 100 unit/mL 30 unit (0.3 mL) SUBCUT DAILY #45 03/10/22 06/06/22 06/05/22 Rx (3 mL) subcutaneous pen (Levemir mL FlexTouch U-100 Insulin) diabetic shoes #1 ea 03/28/22 06/05/22 Unknown Rx tramadol 50 mg tablet 50 mg PO BID PRN pain #10 tabs 04/24/22 06/05/22 Unknown Rx furosemide 40 mg tablet 40 mg PO DAILY #90 tabs 05/20/22 06/06/22 06/05/22 Rx bupropion HCl 150 mg tablet,12 hr See Rx Instructions .Route 05/26/22 06/06/22 06/05/22 Rx sustained-release .COMPLEX #180 tabs albuterol sulfate 90 mcg/actuation 2 puff inhalation Q6H PRN 06/05/22 06/06/22 06/06/22 Rx aerosol inhaler (ProAir HFA) shortness of breath or wheezing #6.7 grams clopidogrel 75 mg tablet 75 mg PO DAILY 06/05/22 06/06/22 06/05/22 History gabapentin 400 mg capsule 400 mg PO BID 06/05/22 06/06/22 06/05/22 History insulin aspart U-100 100 unit/mL 1 sliding scale dose SUBCUT DAILY 06/05/22 06/06/22 06/05/22 History (3 mL) subcutaneous pen (Novolog Flexpen U-100 Insulin aspart) metolazone 5 mg tablet 5 mg PO DAILY #90 tabs 06/05/22 06/06/22 06/05/22 Rx potassium chloride 20 mEq 20 meq PO DAILY 06/05/22 06/06/22 06/05/22 History tablet,extended release rivaroxaban 2.5 mg tablet (Xarelto) 2.5 mg PO DAILY 06/05/22 06/06/22 06/05/22 History Allergies Allergy/AdvReac Type Severity Reaction Status Date / Time Penicillins Allergy swelling Verified 06/06/22 06:32 [facility] Anesthesia Medical History Anxiety CAD (coronary artery disease) Critical lower limb ischemia Diabetic neuropathy DM type 2 (diabetes mellitus, type 2) Hyperlipidemia Hypertension PVD (peripheral vascular disease) Smoking addiction Ulcer of right foot with necrosis of bone Surgical History H/O hernia repair History of heart artery stent Hx of amputation of lesser toe Status post transmetatarsal amputation of right foot Family History Sister Diabetes Mother Diabetes Father CAD (coronary artery disease) Social History Smoking and tobacco status: current every day smoker cigarettes Second hand smoke exposure: Yes Data Anesthesia Cardiac Studies: No Data to Display
[2022-06-06] MEDS: clindamycin 600 MG/50 ML PREMIX 100 MG IV (07:27)
[2022-06-06] MEDS: lidocaine 2% INJ 20 mL INJECTION (07:50)
--- NOTE | 2022-06-06 08:22 | P.OP_ITS ---
Operative Report Date of procedure: June 06, 2022 Pre-op diagnosis: Preop Diagnosis Forefoot varus Post-op diagnosis: Same Post-op findings: Improved position of forefoot after tendon balancing, reduced varus. Procedure done: Right tibialis anterior tendon transfer CPT code 84320 Implants: Mayda 5 mm bone anchor, #2 FiberWire, 2-0 Vicryl, 4-0 Vicryl, 4-0 nylon Specimens removed/disposition: None Pathology: None Surgeon: Bhargav Frey D.P.M. Mixed Animal Veterinarian: See intraoperative documentation Estimated blood loss: 5 See intraoperative documentation IV fluids: None Urine output: None Complications: None Brief History: Patient is adamant in pursuing surgical tendon balancing of his right foot.? At length I discussed with the patient increased risk for infection and surgical failure to proceed with a tendon balancing procedure in the presence of a wound.? He has been in wound care for approximately 6 months and has made significant improvement, has been diligent with wound care recommendations and his wound has plateaued, is nearly healed it is limited to breakdown of skin and certainly clinically stable.? It is reasonable to proceed with tendon balancing in this scenario with the understanding that he is at increased risk for wound healing complications patient expresses understanding and wants to proceed at the earliest available opportunity.? Planning on right tibialis anterior tendon transfer on 05/23/2022 that can be done outpatient under general anesthetic.? Risks include but are not limited to pain, bleeding, numbness, surgical site infection, extension of surgical site infection down to bone and risk for osteomyelitis, risk for amputation as a result of poor healing and postoperative infection.? Altered mechanics postoperatively.? Tendon rupture, tendon failure at transfer site, new wound formation as result of abnormal mechanics, need for advanced bracing and a continuation of wound care, risks associate with anesthesia and risk for deep vein thrombosis, heart attack, stroke and .? Also risk for further surgical intervention. Patient is agreeable and wishes to proceed Procedure: Under mild sedation the patient was brought to the operating room and remained on the gurney in supine position. A timeout was performed. Anesthesia was then administered by the anesthesia service. Local anesthetic injected by myself, right ankle block utilizing 30 cc of one-to-one mixture 1% lidocaine 1.5% Marcaine plain to the right ankle. Well-padded pneumatic tourniquet applied to right high calf. Right lower extremity was then scrubbed, prepped and draped utilizing normal aseptic technique. Right lower extremity was exanguinated with an Esmarch bandage and the tourniquet inflated to 250 mmHg. Attention was directed to the tibialis anterior tendon proximal to the ankle joint where a 1 cm incision was made directly over the tibialis anterior tendon at the right lower extremity, this was dissected from its tendon sheath and a hemostat underneath the tendon held its place out of the incision for identif ication more distally. Attention was then directed to the insertion site of the tibialis anterior tendon at the medial forefoot with a small 2 cm oblique incision over the tendons course performed with dissection carried down to the tibialis anterior tendon insertion which was then sharply released with a #15 blade and the tendon was retracted through the proximal incision at the lower anterior leg. The tendon was then tunneled at the appropriate layer of the foot down laterally and obliquely to the cuboid and anchored with a 5 mm Mayda bone anchor and secured utilizing a surgeons not. All incisions were flushed with copious months of dosing solution. Under tension and dorsiflexion the tendon was secured and the varus component of his right foot was balanced evenly and rectus. Saline flush performed once again followed by closure in a layered fashion with 2-0 Vicryl at deep tissue, 4-0 Vicryl at subcutaneous tissue and 4- 0 nylon at skin. All 3 incisions were closed in this fashion. All 3 incisions were then dressed with Adaptic, sterile 4 x 4, Kerlix and Neel wrap followed by application of cam boot. Tourniquet was deflated and a prompt hyperemic response is noted to the distal amputation site of the right foot. Patient tolerated the procedure and anesthesia well and was transferred to the PACU with vital signs stable and vascular status intact. Following a period of postop monitoring he will be discharged home is to elevate his right foot while resting and remain nonweightbearing. Was prescribed pain medication be taken judiciously as needed, he was given postoperative follow-up in podiatry clinic next week with appointment reminder card and was provided my cell phone number to contact me with any postoperative questions or concerns.
[2022-06-06 08:25] VITALS: BP 95/67; PULSE 88; RESP 18; TEMP 36.8; O2SAT 94
[2022-06-06 08:30] VITALS: BP 99/62; PULSE 86; RESP 16; O2SAT 97
[2022-06-06 08:35] VITALS: BP 104/66; PULSE 85; RESP 15; TEMP 36.2; O2SAT 97
[2022-06-06 08:45] VITALS: BP 110/76; PULSE 88; RESP 16; TEMP 36.7; O2SAT 96
[2022-06-06 08:53] VITALS: BP 105/78; PULSE 86; RESP 18; TEMP 36.7; O2SAT 95
--- NOTE | 2022-06-06 15:00 | ANE.PACU2 ---
Inpatient post-anesthesia follow up: Airway intact: Yes Vital signs: Temperature 98.1 F Pulse Rate 86 Respiratory Rate 18 Blood Pressure 105/78 Pulse Oximetry 95 Oxygen Delivery Me thod Room Air Oxygen Flow Rate Fraction of Inspir ed Oxygen Hydration adequate: Yes Nausea and vomiting: No Pain level: 2 Mental status: Baseline
== END 2022-06-06 09:16 | disposition home or self-care (01) ==
PROVIDERS: PCP Nurse Practitioner Family; Visit Provider Podiatrist Foot & Ankle Surgery
PROC: (CPT 27691; principal; 2022-06-06 07:30)
DX: M21.171 Varus deformity, not elsewhere classified, right ankle (principal); E11.40 Type 2 diabetes mellitus with diabetic neuropathy, unspecified; E11.51 Type 2 diabetes mellitus with diabetic peripheral angiopathy without gangrene; E11.42 Type 2 diabetes mellitus with diabetic polyneuropathy; I10 Essential (primary) hypertension; E78.5 Hyperlipidemia, unspecified; I25.10 Atherosclerotic heart disease of native coronary artery without angina pectoris; E66.01 Morbid (severe) obesity due to excess calories; Z68.42 Body mass index [BMI] 45.0-49.9, adult; F17.210 Nicotine dependence, cigarettes, uncomplicated; Z79.82 Long term (current) use of aspirin; Z79.4 Long term (current) use of insulin; Z95.5 Presence of coronary angioplasty implant and graft; Z88.0 Allergy status to penicillin; Z89.431 Acquired absence of right foot
CPT/HCPCS: 27691; 36416; 73630; 76000; 82962; C1713; J2704; J3010; J3490; J7030

== ENCOUNTER → 2022-06-12 13:56 | Outpatient (BNVA) | payer MEDICARE, MEDICAID, SELFPAY | PROVIDERS: PCP Nurse Practitioner Family; Visit Provider Podiatrist Foot & Ankle Surgery | DX: Z98.890 Other specified postprocedural states (principal) | CPT/HCPCS: 73630; 99024 ==

== ENCOUNTER → 2022-06-17 09:20 | Outpatient (BNVA) | payer MEDICARE, MEDICAID, SELFPAY | PROVIDERS: PCP Nurse Practitioner Family; Visit Provider Internal Medicine | DX: E11.40 Type 2 diabetes mellitus with diabetic neuropathy, unspecified (principal); E11.42 Type 2 diabetes mellitus with diabetic polyneuropathy; I73.9 Peripheral vascular disease, unspecified; Z89.431 Acquired absence of right foot; Z79.4 Long term (current) use of insulin; F17.210 Nicotine dependence, cigarettes, uncomplicated; Z79.84 Long term (current) use of oral hypoglycemic drugs | CPT/HCPCS: 99214 ==

== ENCOUNTER → 2022-06-19 10:58 | Outpatient (BNVA) | payer MEDICARE, MEDICAID, SELFPAY | PROVIDERS: PCP Nurse Practitioner Family; Visit Provider Podiatrist Foot & Ankle Surgery | DX: Z98.890 Other specified postprocedural states (principal) | CPT/HCPCS: 73630; 99024 ==

== ENCOUNTER → 2022-07-03 13:13 | Outpatient (BNVA) | payer MEDICARE, MEDICAID, SELFPAY | PROVIDERS: PCP Nurse Practitioner Family; Visit Provider Podiatrist Foot & Ankle Surgery | DX: L97.512 Non-pressure chronic ulcer of other part of right foot with fat layer exposed (principal); Z98.890 Other specified postprocedural states | CPT/HCPCS: 11042; 73630; 87070; 87075; 87205 ==

== ENCOUNTER → 2022-07-10 08:24 | Outpatient (BNVA) | payer MEDICARE, MEDICAID, SELFPAY | PROVIDERS: PCP Nurse Practitioner Family; Visit Provider Podiatrist Foot & Ankle Surgery | DX: Z98.890 Other specified postprocedural states (principal); L97.512 Non-pressure chronic ulcer of other part of right foot with fat layer exposed | CPT/HCPCS: 99213 ==

== ENCOUNTER → 2022-07-24 10:08 | Outpatient (BNVA) | payer MEDICARE, MEDICAID, SELFPAY | PROVIDERS: PCP Nurse Practitioner Family; Visit Provider Podiatrist Foot & Ankle Surgery | DX: Z98.890 Other specified postprocedural states (principal); E11.621 Type 2 diabetes mellitus with foot ulcer; L97.512 Non-pressure chronic ulcer of other part of right foot with fat layer exposed; L97.522 Non-pressure chronic ulcer of other part of left foot with fat layer exposed; E11.42 Type 2 diabetes mellitus with diabetic polyneuropathy; I73.9 Peripheral vascular disease, unspecified; E11.52 Type 2 diabetes mellitus with diabetic peripheral angiopathy with gangrene; Z79.4 Long term (current) use of insulin | CPT/HCPCS: 99024; 99214 ==

== ENCOUNTER → 2022-08-04 09:43 | Outpatient (BNVA) | payer MEDICARE, MEDICAID, SELFPAY | PROVIDERS: PCP Nurse Practitioner Family; Visit Provider Podiatrist Foot & Ankle Surgery | DX: E11.621 Type 2 diabetes mellitus with foot ulcer (principal); Z98.890 Other specified postprocedural states; L97.512 Non-pressure chronic ulcer of other part of right foot with fat layer exposed; L97.522 Non-pressure chronic ulcer of other part of left foot with fat layer exposed; I73.9 Peripheral vascular disease, unspecified; E11.42 Type 2 diabetes mellitus with diabetic polyneuropathy; E11.52 Type 2 diabetes mellitus with diabetic peripheral angiopathy with gangrene; Z79.4 Long term (current) use of insulin | CPT/HCPCS: 99213 ==

== ENCOUNTER → 2022-08-12 13:36 | Outpatient (BNVA) | payer MEDICARE, MEDICAID, SELFPAY | PROVIDERS: PCP Nurse Practitioner Family; Visit Provider Podiatrist Foot & Ankle Surgery | DX: I73.9 Peripheral vascular disease, unspecified (principal); E11.621 Type 2 diabetes mellitus with foot ulcer; L97.522 Non-pressure chronic ulcer of other part of left foot with fat layer exposed; E11.42 Type 2 diabetes mellitus with diabetic polyneuropathy; E11.52 Type 2 diabetes mellitus with diabetic peripheral angiopathy with gangrene; Z79.4 Long term (current) use of insulin; L97.512 Non-pressure chronic ulcer of other part of right foot with fat layer exposed; Z98.890 Other specified postprocedural states | CPT/HCPCS: 73630; 99213 ==

== ENCOUNTER → 2022-08-26 11:29 | Outpatient (BNVA) | payer MEDICARE, MEDICAID, SELFPAY | PROVIDERS: PCP Nurse Practitioner Family; Visit Provider Podiatrist Foot & Ankle Surgery | DX: E11.621 Type 2 diabetes mellitus with foot ulcer (principal); L97.512 Non-pressure chronic ulcer of other part of right foot with fat layer exposed; I73.9 Peripheral vascular disease, unspecified; E11.42 Type 2 diabetes mellitus with diabetic polyneuropathy; E11.52 Type 2 diabetes mellitus with diabetic peripheral angiopathy with gangrene; Z79.4 Long term (current) use of insulin | CPT/HCPCS: 99214 ==

== ENCOUNTER → 2022-09-10 14:06 | Outpatient (BNVA) | payer MEDICARE, MEDICAID, SELFPAY | PROVIDERS: PCP Nurse Practitioner Family; Visit Provider Podiatrist Foot & Ankle Surgery | DX: Z98.890 Other specified postprocedural states; I73.9 Peripheral vascular disease, unspecified; E11.621 Type 2 diabetes mellitus with foot ulcer; L97.513 Non-pressure chronic ulcer of other part of right foot with necrosis of muscle; Z89.421 Acquired absence of other right toe(s); E11.42 Type 2 diabetes mellitus with diabetic polyneuropathy; E11.52 Type 2 diabetes mellitus with diabetic peripheral angiopathy with gangrene; Z79.4 Long term (current) use of insulin | CPT/HCPCS: 11043; 87070; 87075; 87077; 87205; 99214 ==

== ENCOUNTER → 2022-09-16 10:52 | Outpatient (BNVA) | payer MEDICARE, MEDICAID, SELFPAY | PROVIDERS: PCP Nurse Practitioner Family; Visit Provider Internal Medicine | DX: E11.52 Type 2 diabetes mellitus with diabetic peripheral angiopathy with gangrene (principal); E11.49 Type 2 diabetes mellitus with other diabetic neurological complication; E11.42 Type 2 diabetes mellitus with diabetic polyneuropathy; E78.5 Hyperlipidemia, unspecified; I73.9 Peripheral vascular disease, unspecified; Z89.431 Acquired absence of right foot; Z95.5 Presence of coronary angioplasty implant and graft; Z79.4 Long term (current) use of insulin | CPT/HCPCS: 99214 ==

== ENCOUNTER 2022-09-19 09:29 | Day surgery (SDC) | payer MEDICARE, MEDICAID, SELFPAY ==
[2022-09-18 09:21] VITALS: BMI 36.9
[2022-09-19] VITALS (7 sets, daily range): BP systolic 80–143; BP diastolic 46–92; PULSE 79–100; RESP 15–18; TEMP 36.1–36.4; O2SAT 94–98
--- NOTE | 2022-09-19 09:55 | P.ANESASSM_ITS ---
Pre-Anesthetic Assessment Height/Weight: Height 1.8 m Weight 120.202 kg O2 Del Method 09/19/22 09:49 Preop Diagnosis: Osteomyelitis right fifth metatarsal Operation Date: 09/19/22 10:10 Proposed Procedures p Incision and debridement down to bone right foot 88902,L97.514(Right) - Bhargav Frey DPM Familial anesthetic complications: None Was Beta Jesus taken within 24 hours: N/A Was Clonidine taken within 24 hours: N/A Last intake: Intake Last Liquid Date 09/18/22 Last Liquid Time 21:00 Last Solid Date 09/18/22 Last Solid Time 20:00 Social Tobacco and No alcohol Exam alert, oriented x 3, clear to auscultation bilaterally and regular rate & rhythm Airway Mallampati: Class III Dentition: other (no teeth) Comments: Comments: large tongue and neck circumference CV/HEM Atrial Fibrillation (a flutter), Coronary Artery Disease (stents), Hypertension and Peripheral Vascular Disease Metabolic Diabetes Mellitus and Morbid Obesity Neuropsych Neuropathy Anesthetic Plan ASA status: 4 Anesthesia: MAC Risk of > 500 ml blood loss (7ml/kg in children): No Medications/Allergies Home Medications Medication Instructions Recorded Confirmed Last Taken Type lisinopril 2.5 mg tablet 2.5 mg PO DAILY@05/03/20 09/19/22 09/18/22 History aspirin 81 mg tablet,delayed 81 mg PO DAILY@11/29/20 09/19/22 09/18/22 History release (Adult Aspirin Regimen) acetaminophen 500 mg tablet 1,500 mg PO PRN pain 12/05/20 09/19/22 09/18/22 History (Tylenol Extra Strength) cam boot #1 ea 04/11/21 09/16/22 Unknown Rx Diabetic Shoes with a toe filler #1 ea 05/27/21 09/16/22 Unknown Rx to the right Diabetic shoes with 3 pairs of #1 ea 06/18/21 09/16/22 Unknown Rx inserts and toe fillers bilaterally Diabetic shoes with inserts and #1 ea 07/12/21 09/16/22 Unknown Rx bilateral toe fillers blood sugar diagnostic (ReliOn #360 ea 09/03/21 09/16/22 Unknown Rx Prime Test Strips) blood-glucose meter (ReliOn Micro #1 ea 09/03/21 09/16/22 Unknown Rx Glucose Monitor) blood-glucose meter,continuous #1 ea 09/03/21 09/16/22 Unknown Rx (Dexcom G6 Cloth Washer misc) flash glucose scanning reader #1 ea 09/03/21 09/16/22 Unknown Rx (FreeStyle Bear 2 [place]) flash glucose sensor (FreeStyle #1 ea 09/03/21 09/16/22 Unknown Rx Bear 2 Sensor kit) blood-glucose sensor (Dexcom G6 #3 ea 10/07/21 09/16/22 Unknown Rx Sensor device) atorvastatin 40 mg tablet See Rx Instructions .Route 10/23/21 09/19/22 09/18/22 Rx .COMPLEX #90 tabs pen needle, diabetic 31 gauge x #100 ea 11/04/21 09/16/22 Unknown Rx 02/17 (Easy Comfort Pen Tunas) diabetic shoes #1 ea 03/28/22 09/16/22 Unknown Rx metolazone 5 mg tablet 5 mg PO DAILY #90 tabs 06/05/22 09/19/22 09/18/22 Rx insulin detemir U-100 100 unit/mL 32 unit (0.32 mL) SUBCUT DAILY #45 06/12/22 09/19/22 09/18/22 Rx (3 mL) subcutaneous pen (Levemir mL FlexTouch U-100 Insulin) furosemide 40 mg tablet 40 mg PO DAILY #90 tabs 06/17/22 09/19/22 09/18/22 Rx gabapentin 400 mg capsule 400 mg PO BID #270 caps 07/02/22 09/19/22 09/18/22 Rx potassium chloride 20 mEq 20 meq PO DAILY #180 tabs 07/03/22 09/19/22 09/18/22 Rx tablet,extended release sulfamethoxazole 800 1 tab PO BID 10 days #20 tabs 07/24/22 09/19/22 09/18/22 Rx mg-trimethoprim 160 mg tablet (Bactrim DS) clopidogrel 75 mg tablet See Rx Instructions .Route 07/28/22 09/19/22 09/18/22 Rx .COMPLEX #90 tabs rivaroxaban 2.5 mg tablet (Xarelto) 2.5 mg PO DAILY #60 tabs 07/29/22 09/19/22 09/18/22 Rx doxycycline hyclate 100 mg capsule 100 mg PO BID Cellulitis 10 days 08/05/22 09/19/2209/18/22 Rx #20 caps bupropion HCl 150 mg tablet,12 hr See Rx Instructions .Route 09/10/22 09/19/22 09/18/22 Rx sustained-release .COMPLEX #180 tabs insulin aspart U-100 100 unit/mL 1 sliding scale dose SUBCUT DAILY 09/16/22 09/19/22 09/18/22 Rx (3 mL) subcutaneous pen (Novolog #21 mL Flexpen U-100 Insulin aspart) Allergies Allergy/AdvReac Type Severity Reaction Status Date / Time Penicillins Allergy Intermediate swelling Verified 09/19/22 09:41 [facility] Anesthesia Medical History Anxiety CAD (coronary artery disease) Critical lower limb ischemia Diabetic neuropathy DM type 2 (diabetes mellitus, type 2) Hyperlipidemia Hypertension PVD (peripheral vascular disease) Smoking addiction Ulcer of right foot with necrosis of bone Surgical History H/O hernia repair History of heart artery stent Hx of amputation of lesser toe Status post transmetatarsal amputation of right foot Family History Sister Diabetes Mother Diabetes Father CAD (coronary artery disease) Social History Smoking and tobacco status: current every day smoker cigarettes Second hand smoke exposure: Yes Alcohol intake: never Adopted: No Caregiver/support person: No Lives independently: No Household members: spouse Marital status: service: No Current occupational status: disabled Sexually active: Yes Current gender identity: Male Data Anesthesia Cardiac Studies: No Data to Display
[2022-09-19 10:08] LABS: Glucose Point of Care 229 mg/dL (70-110)
[2022-09-19] MEDS: sodium chloride 0.9% 1,000 ML 30 ML IV (10:10)
--- NOTE | 2022-09-19 10:17 | W.PM.OPSUD ---
Surgery/Procedure H&P Update DATE OF PROCEDURE: September 19, 2022 DATE H&P PERFORMED: 09/10/22 CHANGES TO PREVIOUS DOCUMENTATION: None PREOP DIAGNOSIS: Osteomyelitis right fifth metatarsal PLANNED PROCEDURE: Operation Date: 09/19/22 10:10 Proposed Procedures p Incision and debridement down to bone right foot 11238,G92.514(Right) - Bhargav Frey DPM
[2022-09-19] MEDS: clindamycin 600 MG/50 ML PREMIX 100 MG IV (10:27)
[2022-09-19 10:45] LABS: Blood Urea Nitrogen 23 mg/dL (6-20); Calcium 9.2 mg/dL (8.5-10.5); Carbon Dioxide 31 mmol/L (22-29); Chloride 96 mmol/L (98-107); Glomerular Filtration Rate 79.1 mL/min (90-130); Glucose 242 mg/dL (65-115); Osmolality Calculated 292 mOsm/kg (285-295); Sodium 135 mmol/L (136-145)
[2022-09-19 10:48] LABS: Anion Gap 12.3 (5-19); Potassium 4.3 mmol/L (3.5-5.1)
[2022-09-19] MEDS: lidocaine 1% INJ 20 mL 15 ML XX (10:50)
[2022-09-19] MEDS: oxyCODONE-APAP 10-325 mg Tablet 1 TAB PO (11:36)
--- NOTE | 2022-09-19 12:37 | PM.OP ---
Operative Report Date of procedure: September 19, 2022 Pre-op diagnosis: Preop Diagnosis Osteomyelitis right fifth metatarsal Post-op diagnosis: Osteomyelitis right fifth metatarsal Post-op findings: Devitalized bone right fifth metatarsal Procedure done: Incision down to bone cortex right foot fifth metatarsal. CPT code 42244 Implants: 3-0 Vicryl, 4-0 nylon. Specimens removed/disposition: Right fifth metatarsal base sent to microbiology for gram stain and culture with sensitivity Pathology: None Surgeon: Bhargav Frey D.P.M. Biological Sciences Professor: See intraoperative documentation Estimated blood loss: 5 See intraoperative documentation IV fluids: 0 Urine output: 0 Complications: None Findings: Devitalized bone to right fifth metatarsal Brief History: Patient examined and evaluated, findings and treatment options were discussed with patient at length.? MRI right foot with and without contrast suggestive of osteomyelitis to the proximal remaining portion of the right fifth metatarsal.? No abscess or drainable fluid collection.? At today's visit the wound was sharply and distally rated down to and including deep fascial and muscle.? This was performed with a disposable sterile dermal curette.? Hemostasis via manual pressure.? No anesthesia was required secondary to neuropathy.? Post debridement wound cultures taken and sent to microbiology for gram stain, culture and sensitivity.? Patient placed on Bactrim DS twice daily for 14 days based off of previous culture findings.? Offload with cam boot.? Continue keeping clean and dry and avoid getting wet when showering.? Will continue with Betadine wet-to-dry at this time.? Recommended patient to follow-up with his vascular surgeon in [place], he states he would prefer to follow-up in [place] as this would be more convenient for him.? Previous revascularization was performed by Dr Eugene this was done approximately 4 years ago in [place].? Will send a referral to [facility] in [place] vascular surgery department for PAD, has diminished pedal pulses and delayed healing of wounds.? Given MRI findings and nonhealing wounds recommended surgical debridement to include but not limited to right fifth metatarsal.? Patient is agreeable wishes to proceed.? States that this is not a good time over the next few days has family coming into town.? He is clinically stable, there is no purulence or lymphangitic streaking or periwound erythema.? Clinical and radiographic findings are indicative of chronic osteomyelitis.? He is requesting surgery next 09/19/2022, as of now this could be performed reasonably outpatient, may escalate should his clinical picture deteriorate.? He will continue with Betadine wet-to-dry as above.? Plan for incision and debridement down to bone cortex right foot next Thursday.? He is to present to the emergency department with any worsening of symptoms prior to that time.? I reviewed at length with the patient, the risks, potential complications, benefits, alternatives, expectations, and typical outcomes associated with the surgery. The risks and potential complications were explained in detail, including but not limited to infection, wound dehiscence or soft tissue complications, bleeding and hematoma, chronic edema, neuritis or nerve damage producing numbness or chronic pain, CRPS, failure to relieve pain or worsening pain, thick / painful / unsightly scar, limited motion / stiffness, malposition, delayed union, malunion, or nonunion, fracture, reaction to implants, anesthetic complications, venous thromboembolism, and deformity recurrence.? I discussed the notion of no regrets with the patient as it pertains to complications and outcomes. The patient seemed to understand the nature of the proposed care and required convalescence. They asked appropriate questions, answered to their satisfaction. They are aware no guarantees can be made as to a satisfactory outcome and they understand there may be other possible unforeseen complications or outcomes not listed here that will be treated accordingly if they arise. There were no written or implied guarantees given to the patient. They gave informed consent to proceed. Procedure: Under mild sedation the patient was brought to the operating room and remained on the gurney in supine position. A timeout was performed. Anesthesia was then administered by the anesthesia service. Local anesthesia was injected by myself consisting of 20 cc of one-to-one mixture 1% lidocaine and 0.25% Marcaine plain in a proximal reverse Ferrari block fashion to the right foot. A well-padded pneumatic tourniquet was applied to the right ankle. The right lower extremity was then scrubbed, prepped and draped utilizing normal aseptic technique. No Esmarch bandage was utilized secondary to wound presence and infection. The right ankle tourniquet was then inflated to 250 mmHg. Attention was directed to the right lateral foot where 2 wounds were appreciated. Wound #1 located at the right plantar lateral foot subfifth metatarsal base communicating to bone. Wound probes directly to the fifth metatarsal base of the right foot. Wound #2 located at the dorsal lateral midfoot to rear foot was a sinus tract with exposed subcutaneous tissue, no deep structures exposed, some thread at subcutaneous tissue from tendon transfer was visualized. Attention was then directed first to the plantar foot wound #1 where sharp debridement was performed down to bone, fifth metatarsal base was soft, devitalized and discolored and was debrided sharply. Determination was made given the involvement of devitalized bone to shell out the entire remaining base of the right fifth metatarsal which was done sharply with a #15 blade with pickups this bone was then sent to microbiology for gram stain, culture and sensitivity. The incision was then irrigated with copious amounts of sterile saline solution and closed in a layered fashion with deep fascia and periosteum reapproximated with 3-0 Vicryl and subcutaneous tissue reapproximated 4-0 Vicryl and skin with 4-0 nylon with a centralized portion left open for tertiary healing. Attention was then directed to the wound #2 noted above where pickups and a #15 blade were utilized to sharply excise and debride excisionally nature down to and including subcutaneous tissue and sharp excision of nonabsorbable suture was performed. Wound bed was viable, no purulence or tracking appreciated. All devitalized soft tissue was debrided and passed from the operative field followed by irrigation and closure with 4-0 nylon. Incision sites were dressed with Adaptic, sterile 4 x 4, Kerlix, Neel wrap and a cam boot was applied to the right lower extremity. Tourniquet was then deflated and a prompt hyperemic response was noted to the TMA stump distally at the right foot. Patient tolerated the procedure and anesthesia well and was transferred to the PACU with vital signs stable and vascular status intact. Following a period of postop monitoring he will be discharged home was given at home care instructions as well as schedule follow-up in podiatry clinic next week.
--- NOTE | 2022-09-19 14:40 | ANE.PACU2 ---
Inpatient post-anesthesia follow up: Airway intact: Yes Vital signs: Temperature 97.5 F Pulse Rate 79 Respiratory Rate 18 Blood Pressure 103/71 Pulse Oximetry 95 Oxygen Delivery Me thod Room Air Oxygen Flow Rate 10 Fraction of Inspir ed Oxygen Hydration adequate: Yes Nausea and vomiting: No Pain level: 1 Mental status: Baseline
== END 2022-09-19 12:10 | disposition home or self-care (01) ==
PROVIDERS: Anesthesiology; PCP Nurse Practitioner Family; Visit Provider Podiatrist Foot & Ankle Surgery
PROC: (CPT 28005; principal; 2022-09-19 10:00)
DX: M86.8X7 Other osteomyelitis, ankle and foot (principal); I48.91 Unspecified atrial fibrillation; I25.10 Atherosclerotic heart disease of native coronary artery without angina pectoris; Z95.5 Presence of coronary angioplasty implant and graft; I10 Essential (primary) hypertension; E66.01 Morbid (severe) obesity due to excess calories; Z68.37 Body mass index [BMI] 37.0-37.9, adult; Z79.82 Long term (current) use of aspirin; F41.9 Anxiety disorder, unspecified; E11.42 Type 2 diabetes mellitus with diabetic polyneuropathy; F17.210 Nicotine dependence, cigarettes, uncomplicated
CPT/HCPCS: 28005; 36415; 36416; 80048; 82962; 87070; 87075; 87176; 87205; J2704; J3010; J3490; J7030

== ENCOUNTER → 2022-09-25 09:52 | Outpatient (BNVA) | payer MEDICARE, MEDICAID, SELFPAY | PROVIDERS: PCP Nurse Practitioner Family; Visit Provider Podiatrist Foot & Ankle Surgery | DX: Z98.890 Other specified postprocedural states (principal) | CPT/HCPCS: 99024 ==

== ENCOUNTER → 2022-10-07 15:10 | Outpatient (BNVA) | payer MEDICARE, MEDICAID, SELFPAY | PROVIDERS: PCP Nurse Practitioner Family; Visit Provider Podiatrist Foot & Ankle Surgery | DX: Z98.890 Other specified postprocedural states (principal) | CPT/HCPCS: 99024; 99213 ==

== ENCOUNTER → 2022-10-16 11:19 | Outpatient (BNVA) | payer MEDICARE, MEDICAID, SELFPAY | PROVIDERS: PCP Nurse Practitioner Family; Visit Provider Podiatrist Foot & Ankle Surgery | DX: E11.621 Type 2 diabetes mellitus with foot ulcer (principal); L97.512 Non-pressure chronic ulcer of other part of right foot with fat layer exposed; Z98.890 Other specified postprocedural states; I73.9 Peripheral vascular disease, unspecified; E11.42 Type 2 diabetes mellitus with diabetic polyneuropathy; Z79.4 Long term (current) use of insulin; E11.52 Type 2 diabetes mellitus with diabetic peripheral angiopathy with gangrene | CPT/HCPCS: 11042 ==

== ENCOUNTER → 2022-10-22 09:35 | Outpatient (BNVA) | payer MEDICARE, MEDICAID, SELFPAY | PROVIDERS: PCP Nurse Practitioner Family; Visit Provider Nurse Practitioner Family | DX: Z79.01 Long term (current) use of anticoagulants (principal); E11.40 Type 2 diabetes mellitus with diabetic neuropathy, unspecified; E11.49 Type 2 diabetes mellitus with other diabetic neurological complication; I73.9 Peripheral vascular disease, unspecified; Z79.4 Long term (current) use of insulin; Z95.5 Presence of coronary angioplasty implant and graft; Z89.439 Acquired absence of unspecified foot; E11.9 Type 2 diabetes mellitus without complications | CPT/HCPCS: 80053; 80061; 83036; 83721; 85025 ==

== ENCOUNTER → 2022-10-23 12:23 | Outpatient (BNVA) | payer MEDICARE, MEDICAID, SELFPAY | PROVIDERS: PCP Nurse Practitioner Family; Visit Provider Podiatrist Foot & Ankle Surgery | DX: Z98.890 Other specified postprocedural states (principal); I73.9 Peripheral vascular disease, unspecified; E11.42 Type 2 diabetes mellitus with diabetic polyneuropathy; E11.52 Type 2 diabetes mellitus with diabetic peripheral angiopathy with gangrene; Z79.4 Long term (current) use of insulin; L97.512 Non-pressure chronic ulcer of other part of right foot with fat layer exposed; E11.621 Type 2 diabetes mellitus with foot ulcer | CPT/HCPCS: 99024; 99213 ==

== ENCOUNTER → 2022-11-06 11:18 | Outpatient (BNVA) | payer MEDICARE, MEDICAID, SELFPAY | PROVIDERS: PCP Nurse Practitioner Family; Visit Provider Podiatrist Foot & Ankle Surgery | DX: I73.9 Peripheral vascular disease, unspecified (principal); E11.42 Type 2 diabetes mellitus with diabetic polyneuropathy; E11.52 Type 2 diabetes mellitus with diabetic peripheral angiopathy with gangrene; Z79.4 Long term (current) use of insulin; L97.513 Non-pressure chronic ulcer of other part of right foot with necrosis of muscle; E11.621 Type 2 diabetes mellitus with foot ulcer | CPT/HCPCS: 11043 ==

== ENCOUNTER → 2022-11-12 09:21 | Outpatient (BNVA) | payer MEDICARE, MEDICAID, SELFPAY | PROVIDERS: PCP Nurse Practitioner Family; Visit Provider Podiatrist Foot & Ankle Surgery | DX: I73.9 Peripheral vascular disease, unspecified (principal); E11.42 Type 2 diabetes mellitus with diabetic polyneuropathy; E11.52 Type 2 diabetes mellitus with diabetic peripheral angiopathy with gangrene; Z79.4 Long term (current) use of insulin; L97.513 Non-pressure chronic ulcer of other part of right foot with necrosis of muscle; E11.621 Type 2 diabetes mellitus with foot ulcer | CPT/HCPCS: 11043 ==

== ENCOUNTER → 2022-11-26 11:01 | Outpatient (BNVA) | payer MEDICARE, MEDICAID, SELFPAY | PROVIDERS: PCP Nurse Practitioner Family; Visit Provider Podiatrist Foot & Ankle Surgery | DX: I73.9 Peripheral vascular disease, unspecified (principal); E11.42 Type 2 diabetes mellitus with diabetic polyneuropathy; E11.52 Type 2 diabetes mellitus with diabetic peripheral angiopathy with gangrene; Z79.4 Long term (current) use of insulin; L97.513 Non-pressure chronic ulcer of other part of right foot with necrosis of muscle; E11.621 Type 2 diabetes mellitus with foot ulcer | CPT/HCPCS: 11043 ==

== ENCOUNTER 2022-12-10 10:54 | Outpatient (CLI) | payer MEDICARE, MEDICAID, SELFPAY | END 2022-12-10 10:55 | disposition home or self-care (01) | LOC: SPT 10:57 | PROVIDERS: PCP Nurse Practitioner Family; Visit Provider Podiatrist Foot & Ankle Surgery | DX: Z46.89 Encounter for fitting and adjustment of other specified devices (principal); E11.52 Type 2 diabetes mellitus with diabetic peripheral angiopathy with gangrene; L97.513 Non-pressure chronic ulcer of other part of right foot with necrosis of muscle | CPT/HCPCS: 11043; 97760; L4361 ==

== ENCOUNTER → 2022-12-22 15:38 | Outpatient (BNVA) | payer MEDICARE, MEDICAID, SELFPAY | PROVIDERS: PCP Nurse Practitioner Family; Visit Provider Podiatrist Foot & Ankle Surgery | DX: I73.9 Peripheral vascular disease, unspecified (principal); E11.42 Type 2 diabetes mellitus with diabetic polyneuropathy; E11.52 Type 2 diabetes mellitus with diabetic peripheral angiopathy with gangrene; Z79.4 Long term (current) use of insulin; L97.513 Non-pressure chronic ulcer of other part of right foot with necrosis of muscle; E11.621 Type 2 diabetes mellitus with foot ulcer | CPT/HCPCS: 11042 ==

== ENCOUNTER → 2023-01-05 14:00 | Outpatient (BNVA) | payer MEDICARE, MEDICAID, SELFPAY | PROVIDERS: PCP Nurse Practitioner Family; Visit Provider Nurse Practitioner Family | DX: Z95.828 Presence of other vascular implants and grafts (principal); M54.9 Dorsalgia, unspecified; N39.0 Urinary tract infection, site not specified | CPT/HCPCS: 80053; 81000; 87086 ==

== ENCOUNTER → 2023-01-08 13:11 | Outpatient (BNVA) | payer MEDICARE, MEDICAID, SELFPAY | PROVIDERS: PCP Nurse Practitioner Family; Visit Provider Podiatrist Foot & Ankle Surgery | DX: I73.9 Peripheral vascular disease, unspecified (principal); E11.42 Type 2 diabetes mellitus with diabetic polyneuropathy; E11.52 Type 2 diabetes mellitus with diabetic peripheral angiopathy with gangrene; Z79.4 Long term (current) use of insulin; L97.513 Non-pressure chronic ulcer of other part of right foot with necrosis of muscle; E11.621 Type 2 diabetes mellitus with foot ulcer | CPT/HCPCS: 11042 ==

== ENCOUNTER → 2023-01-23 08:51 | Outpatient (BNVA) | payer MEDICARE, MEDICAID, SELFPAY | PROVIDERS: PCP Nurse Practitioner Family; Visit Provider Nurse Practitioner Family | DX: R79.89 Other specified abnormal findings of blood chemistry (principal); E11.49 Type 2 diabetes mellitus with other diabetic neurological complication; E11.52 Type 2 diabetes mellitus with diabetic peripheral angiopathy with gangrene; E78.5 Hyperlipidemia, unspecified; Z79.4 Long term (current) use of insulin | CPT/HCPCS: 80053; 80061; 82043; 83036; 85025 ==

== ENCOUNTER → 2023-01-28 12:57 | Outpatient (BNVA) | payer MEDICARE, MEDICAID, SELFPAY | PROVIDERS: PCP Nurse Practitioner Family; Visit Provider Podiatrist Foot & Ankle Surgery | DX: I73.9 Peripheral vascular disease, unspecified (principal); E11.42 Type 2 diabetes mellitus with diabetic polyneuropathy; E11.52 Type 2 diabetes mellitus with diabetic peripheral angiopathy with gangrene; Z79.4 Long term (current) use of insulin; L97.513 Non-pressure chronic ulcer of other part of right foot with necrosis of muscle; E11.621 Type 2 diabetes mellitus with foot ulcer | CPT/HCPCS: 11042 ==

== ENCOUNTER → 2023-02-11 11:30 | Outpatient (BNVA) | payer MEDICARE, MEDICAID, SELFPAY | PROVIDERS: PCP Nurse Practitioner Family; Visit Provider Podiatrist Foot & Ankle Surgery | DX: I73.9 Peripheral vascular disease, unspecified (principal); E11.621 Type 2 diabetes mellitus with foot ulcer; L97.513 Non-pressure chronic ulcer of other part of right foot with necrosis of muscle; Z79.4 Long term (current) use of insulin; E11.52 Type 2 diabetes mellitus with diabetic peripheral angiopathy with gangrene; E11.42 Type 2 diabetes mellitus with diabetic polyneuropathy | CPT/HCPCS: 11042 ==

== ENCOUNTER → 2023-02-25 13:09 | Outpatient (BNVA) | payer MEDICARE, MEDICAID, SELFPAY | PROVIDERS: PCP Nurse Practitioner Family; Visit Provider Podiatrist Foot & Ankle Surgery | DX: I73.9 Peripheral vascular disease, unspecified (principal); E11.621 Type 2 diabetes mellitus with foot ulcer; E11.42 Type 2 diabetes mellitus with diabetic polyneuropathy; E11.52 Type 2 diabetes mellitus with diabetic peripheral angiopathy with gangrene; Z79.4 Long term (current) use of insulin; L97.513 Non-pressure chronic ulcer of other part of right foot with necrosis of muscle | CPT/HCPCS: 11042 ==

== ENCOUNTER → 2023-03-11 12:59 | Outpatient (BNVA) | payer MEDICARE, MEDICAID, SELFPAY | PROVIDERS: PCP Nurse Practitioner Family; Visit Provider Podiatrist Foot & Ankle Surgery | DX: E11.621 Type 2 diabetes mellitus with foot ulcer (principal); E11.42 Type 2 diabetes mellitus with diabetic polyneuropathy; L97.513 Non-pressure chronic ulcer of other part of right foot with necrosis of muscle; Z79.4 Long term (current) use of insulin; E11.52 Type 2 diabetes mellitus with diabetic peripheral angiopathy with gangrene; Z51.89 Encounter for other specified aftercare; I73.9 Peripheral vascular disease, unspecified | CPT/HCPCS: 11042 ==

== ENCOUNTER 2023-03-11 14:47 | Outpatient (CLI) | payer MEDICARE, MEDICAID, SELFPAY | END 2023-03-11 14:48 | disposition home or self-care (01) | LOC: SPT 14:47 | PROVIDERS: PCP Nurse Practitioner Family; Visit Provider Podiatrist Foot & Ankle Surgery | DX: Z46.89 Encounter for fitting and adjustment of other specified devices (principal); L97.513 Non-pressure chronic ulcer of other part of right foot with necrosis of muscle | CPT/HCPCS: 97760; L4361 ==

== ENCOUNTER → 2023-03-30 13:07 | Outpatient (BNVA) | payer MEDICARE, MEDICAID, SELFPAY | PROVIDERS: PCP Nurse Practitioner Family; Visit Provider Internal Medicine | DX: E11.42 Type 2 diabetes mellitus with diabetic polyneuropathy (principal); E11.49 Type 2 diabetes mellitus with other diabetic neurological complication; E11.621 Type 2 diabetes mellitus with foot ulcer; E78.5 Hyperlipidemia, unspecified; Z89.431 Acquired absence of right foot; I73.9 Peripheral vascular disease, unspecified; Z95.5 Presence of coronary angioplasty implant and graft; L97.509 Non-pressure chronic ulcer of other part of unspecified foot with unspecified severity; Z79.4 Long term (current) use of insulin; Z79.899 Other long term (current) drug therapy | CPT/HCPCS: 99214 ==

== ENCOUNTER → 2023-04-01 10:16 | Outpatient (BNVA) | payer MEDICARE, MEDICAID, SELFPAY | PROVIDERS: PCP Nurse Practitioner Family; Visit Provider Podiatrist Foot & Ankle Surgery | DX: E11.621 Type 2 diabetes mellitus with foot ulcer (principal); L97.513 Non-pressure chronic ulcer of other part of right foot with necrosis of muscle; Z98.890 Other specified postprocedural states; E11.42 Type 2 diabetes mellitus with diabetic polyneuropathy; I73.9 Peripheral vascular disease, unspecified; E11.52 Type 2 diabetes mellitus with diabetic peripheral angiopathy with gangrene; Z79.4 Long term (current) use of insulin | CPT/HCPCS: 11043 ==

== ENCOUNTER → 2023-04-03 09:31 | Outpatient (BNVA) | payer MEDICARE, MEDICAID, SELFPAY | PROVIDERS: PCP Nurse Practitioner Family; Visit Provider Nurse Practitioner Family | DX: J45.909 Unspecified asthma, uncomplicated (principal); R60.0 Localized edema | CPT/HCPCS: 80053; 83880 ==

== ENCOUNTER → 2023-04-13 10:14 | Outpatient (BNVA) | payer MEDICARE, MEDICAID, SELFPAY | PROVIDERS: PCP Nurse Practitioner Family; Visit Provider Nurse Practitioner Family | DX: I50.9 Heart failure, unspecified (principal) | CPT/HCPCS: 80053; 83880 ==

== ENCOUNTER → 2023-04-15 12:56 | Outpatient (BNVA) | payer MEDICARE, MEDICAID, SELFPAY | PROVIDERS: PCP Nurse Practitioner Family; Visit Provider Internal Medicine Cardiovascular Disease | DX: I11.0 Hypertensive heart disease with heart failure (principal); I50.9 Heart failure, unspecified; F17.210 Nicotine dependence, cigarettes, uncomplicated | CPT/HCPCS: 99214 ==

== ENCOUNTER → 2023-04-22 13:46 | Outpatient (BNVA) | payer MEDICARE, MEDICAID, SELFPAY | PROVIDERS: PCP Nurse Practitioner Family; Visit Provider Podiatrist Foot & Ankle Surgery | DX: E11.621 Type 2 diabetes mellitus with foot ulcer (principal); I73.9 Peripheral vascular disease, unspecified; L97.513 Non-pressure chronic ulcer of other part of right foot with necrosis of muscle; Z79.4 Long term (current) use of insulin; E11.52 Type 2 diabetes mellitus with diabetic peripheral angiopathy with gangrene; E11.42 Type 2 diabetes mellitus with diabetic polyneuropathy | CPT/HCPCS: 11042 ==

== ENCOUNTER → 2023-05-13 13:14 | Outpatient (BNVA) | payer MEDICARE, MEDICAID, SELFPAY | PROVIDERS: PCP Nurse Practitioner Family; Visit Provider Podiatrist Foot & Ankle Surgery | DX: E11.42 Type 2 diabetes mellitus with diabetic polyneuropathy (principal); I73.9 Peripheral vascular disease, unspecified; E11.52 Type 2 diabetes mellitus with diabetic peripheral angiopathy with gangrene; Z79.4 Long term (current) use of insulin | CPT/HCPCS: 99213 ==

== ENCOUNTER → 2023-06-10 13:30 | Outpatient (BNVA) | payer MEDICARE, MEDICAID, SELFPAY | PROVIDERS: PCP Nurse Practitioner Family; Visit Provider Podiatrist Foot & Ankle Surgery | DX: I73.9 Peripheral vascular disease, unspecified (principal); E11.52 Type 2 diabetes mellitus with diabetic peripheral angiopathy with gangrene; Z79.4 Long term (current) use of insulin | CPT/HCPCS: 99213 ==

== ENCOUNTER → 2023-07-21 10:57 | Outpatient (BNVA) | payer MEDICARE, MEDICAID, SELFPAY | PROVIDERS: PCP Nurse Practitioner Family; Visit Provider Nurse Practitioner Family | DX: E11.52 Type 2 diabetes mellitus with diabetic peripheral angiopathy with gangrene (principal); Z79.4 Long term (current) use of insulin; I10 Essential (primary) hypertension; E78.5 Hyperlipidemia, unspecified; R53.83 Other fatigue | CPT/HCPCS: 80053; 80061; 83036; 85025 ==

== ENCOUNTER → 2023-09-08 10:43 | Outpatient (BNVA) | payer MEDICARE, MEDICAID, SELFPAY | PROVIDERS: PCP Nurse Practitioner Family; Visit Provider Podiatrist Foot & Ankle Surgery | DX: I73.9 Peripheral vascular disease, unspecified (principal); E11.52 Type 2 diabetes mellitus with diabetic peripheral angiopathy with gangrene; Z79.4 Long term (current) use of insulin | CPT/HCPCS: 99213 ==

== ENCOUNTER → 2023-11-30 09:31 | Outpatient (BNVA) | payer MEDICARE, MEDICAID, SELFPAY | PROVIDERS: PCP Nurse Practitioner Family; Visit Provider Nurse Practitioner Family | DX: I10 Essential (primary) hypertension (principal); E11.9 Type 2 diabetes mellitus without complications; R53.83 Other fatigue | CPT/HCPCS: 80053; 80061; 83036; 85025 ==

== ENCOUNTER → 2023-12-08 10:48 | Outpatient (BNVA) | payer MEDICARE, MEDICAID, SELFPAY | PROVIDERS: PCP Nurse Practitioner Family; Visit Provider Podiatrist Foot & Ankle Surgery | DX: I73.9 Peripheral vascular disease, unspecified (principal); E11.52 Type 2 diabetes mellitus with diabetic peripheral angiopathy with gangrene; Z79.4 Long term (current) use of insulin | CPT/HCPCS: 99213 ==

== ENCOUNTER → 2024-03-07 13:26 | Outpatient (BNVA) | payer MEDICARE, MEDICAID, SELFPAY | PROVIDERS: PCP Nurse Practitioner Family; Visit Provider Podiatrist Foot & Ankle Surgery | DX: I73.9 Peripheral vascular disease, unspecified (principal); E11.52 Type 2 diabetes mellitus with diabetic peripheral angiopathy with gangrene; Z79.4 Long term (current) use of insulin; L97.522 Non-pressure chronic ulcer of other part of left foot with fat layer exposed; L60.3 Nail dystrophy; E11.621 Type 2 diabetes mellitus with foot ulcer | CPT/HCPCS: 11042; 11720 ==

== ENCOUNTER → 2024-03-08 13:34 | Outpatient (BNVA) | payer MEDICARE, MEDICAID, SELFPAY | PROVIDERS: PCP Nurse Practitioner Family; Visit Provider Nurse Practitioner Family | DX: E11.52 Type 2 diabetes mellitus with diabetic peripheral angiopathy with gangrene (principal); I10 Essential (primary) hypertension; Z79.4 Long term (current) use of insulin; R53.83 Other fatigue | CPT/HCPCS: 80053; 80061; 83036; 85025 ==

== ENCOUNTER → 2024-03-28 10:38 | Outpatient (BNVA) | payer MEDICARE, MEDICAID, SELFPAY | PROVIDERS: PCP Nurse Practitioner Family; Visit Provider Podiatrist Foot & Ankle Surgery | DX: E11.42 Type 2 diabetes mellitus with diabetic polyneuropathy (principal); L60.3 Nail dystrophy; I73.9 Peripheral vascular disease, unspecified; E11.52 Type 2 diabetes mellitus with diabetic peripheral angiopathy with gangrene; Z79.4 Long term (current) use of insulin | CPT/HCPCS: 73630 ==

== ENCOUNTER 2024-03-28 11:23 | Outpatient (CLI) | payer MEDICARE, MEDICAID, SELFPAY | END 2024-03-28 11:24 | disposition home or self-care (01) | LOC: SPT 11:24 | PROVIDERS: PCP Nurse Practitioner Family; Visit Provider Podiatrist Foot & Ankle Surgery | DX: Z46.89 Encounter for fitting and adjustment of other specified devices (principal); M79.672 Pain in left foot | CPT/HCPCS: 97760; 99213; L4361 ==

== ENCOUNTER → 2024-05-30 12:45 | Outpatient (BNVA) | payer MEDICARE, MEDICAID, SELFPAY | PROVIDERS: PCP Nurse Practitioner Family; Visit Provider Internal Medicine | DX: I25.10 Atherosclerotic heart disease of native coronary artery without angina pectoris (principal); I50.9 Heart failure, unspecified; I73.9 Peripheral vascular disease, unspecified; J45.909 Unspecified asthma, uncomplicated; F17.200 Nicotine dependence, unspecified, uncomplicated; G47.30 Sleep apnea, unspecified; Z79.01 Long term (current) use of anticoagulants; E78.2 Mixed hyperlipidemia; Z95.5 Presence of coronary angioplasty implant and graft; E11.49 Type 2 diabetes mellitus with other diabetic neurological complication; I10 Essential (primary) hypertension; Z89.431 Acquired absence of right foot; I48.91 Unspecified atrial fibrillation | CPT/HCPCS: 80048; 83880; 99214 ==

== ENCOUNTER → 2024-05-31 09:00 | Outpatient (BNVA) | payer MEDICARE, MEDICAID, SELFPAY | PROVIDERS: PCP Nurse Practitioner Family; Visit Provider Podiatrist Foot & Ankle Surgery | DX: I73.9 Peripheral vascular disease, unspecified; E11.52 Type 2 diabetes mellitus with diabetic peripheral angiopathy with gangrene; Z79.4 Long term (current) use of insulin; M14.672 Charcot's joint, left ankle and foot | CPT/HCPCS: 73630; 99213 ==

== ENCOUNTER → 2024-08-04 09:00 | Outpatient (BNVA) | payer MEDICARE, MEDICAID, SELFPAY | PROVIDERS: PCP Nurse Practitioner Family; Visit Provider Podiatrist Foot & Ankle Surgery | DX: I73.9 Peripheral vascular disease, unspecified (principal); E11.52 Type 2 diabetes mellitus with diabetic peripheral angiopathy with gangrene; Z79.4 Long term (current) use of insulin; M14.672 Charcot's joint, left ankle and foot; L60.3 Nail dystrophy; L84 Corns and callosities; Z89.431 Acquired absence of right foot | CPT/HCPCS: 11056; 11720 ==

== ENCOUNTER → 2024-09-06 08:36 | Outpatient (BNVA) | payer MEDICARE, MEDICAID, SELFPAY | PROVIDERS: PCP Nurse Practitioner Family; Visit Provider Podiatrist Foot & Ankle Surgery | DX: I73.9 Peripheral vascular disease, unspecified (principal); E11.52 Type 2 diabetes mellitus with diabetic peripheral angiopathy with gangrene; Z79.4 Long term (current) use of insulin; M14.672 Charcot's joint, left ankle and foot; Z89.431 Acquired absence of right foot; Z89.422 Acquired absence of other left toe(s) | CPT/HCPCS: 99213 ==

== ENCOUNTER → 2024-09-21 12:12 | Outpatient (BNVA) | payer MEDICARE, MEDICAID, SELFPAY | PROVIDERS: PCP Nurse Practitioner Family; Visit Provider Nurse Practitioner Family | DX: I10 Essential (primary) hypertension (principal); R53.83 Other fatigue | CPT/HCPCS: 80053; 80061; 85025 ==

== ENCOUNTER → 2024-11-28 10:02 | Outpatient (BNVA) | payer MEDICARE, MEDICAID, SELFPAY | PROVIDERS: PCP Nurse Practitioner Family; Visit Provider Nurse Practitioner Family | DX: E11.52 Type 2 diabetes mellitus with diabetic peripheral angiopathy with gangrene (principal); Z79.4 Long term (current) use of insulin; E78.2 Mixed hyperlipidemia; I48.91 Unspecified atrial fibrillation | CPT/HCPCS: 83036 ==

== ENCOUNTER 2024-12-06 10:33 | Outpatient (CLI) | payer MEDICARE, MEDICAID, SELFPAY | END 2024-12-06 10:34 | disposition home or self-care (01) | LOC: SPT 10:34 | PROVIDERS: PCP Nurse Practitioner Family; Visit Provider Podiatrist Foot & Ankle Surgery | DX: E11.8 Type 2 diabetes mellitus with unspecified complications (principal); I73.9 Peripheral vascular disease, unspecified; E11.52 Type 2 diabetes mellitus with diabetic peripheral angiopathy with gangrene; Z79.4 Long term (current) use of insulin; M14.672 Charcot's joint, left ankle and foot; Z89.422 Acquired absence of other left toe(s); Z89.431 Acquired absence of right foot; E11.621 Type 2 diabetes mellitus with foot ulcer; L97.512 Non-pressure chronic ulcer of other part of right foot with fat layer exposed | CPT/HCPCS: 97760; 99213; L4361 ==

== ENCOUNTER → 2024-12-12 08:29 | Outpatient (BNVA) | payer MEDICARE, MEDICAID, SELFPAY | PROVIDERS: PCP Nurse Practitioner Family; Visit Provider Internal Medicine | DX: E11.42 Type 2 diabetes mellitus with diabetic polyneuropathy (principal); E78.2 Mixed hyperlipidemia; E11.49 Type 2 diabetes mellitus with other diabetic neurological complication; Z89.431 Acquired absence of right foot; I73.9 Peripheral vascular disease, unspecified; Z79.4 Long term (current) use of insulin; Z95.5 Presence of coronary angioplasty implant and graft | CPT/HCPCS: 99214 ==

== ENCOUNTER → 2024-12-14 08:58 | Outpatient (BNVA) | payer MEDICARE, MEDICAID, SELFPAY | PROVIDERS: PCP Nurse Practitioner Family; Visit Provider Thoracic Surgery (Cardiothoracic Vascular Surgery) | DX: E11.52 Type 2 diabetes mellitus with diabetic peripheral angiopathy with gangrene (principal); E11.621 Type 2 diabetes mellitus with foot ulcer; L97.412 Non-pressure chronic ulcer of right heel and midfoot with fat layer exposed | CPT/HCPCS: 11042; 99203; A6210 ==

== ENCOUNTER → 2024-12-21 07:55 | Outpatient (BNVA) | payer MEDICARE, MEDICAID, SELFPAY | PROVIDERS: PCP Nurse Practitioner Family; Visit Provider Thoracic Surgery (Cardiothoracic Vascular Surgery) | DX: E11.52 Type 2 diabetes mellitus with diabetic peripheral angiopathy with gangrene (principal); E11.621 Type 2 diabetes mellitus with foot ulcer; L97.412 Non-pressure chronic ulcer of right heel and midfoot with fat layer exposed | CPT/HCPCS: 11042; A6210 ==

== ENCOUNTER → 2024-12-26 08:33 | Outpatient (BNVA) | payer MEDICARE, MEDICAID, SELFPAY | PROVIDERS: PCP Nurse Practitioner Family; Visit Provider Thoracic Surgery (Cardiothoracic Vascular Surgery) | DX: E11.621 Type 2 diabetes mellitus with foot ulcer (principal); L97.509 Non-pressure chronic ulcer of other part of unspecified foot with unspecified severity; I73.9 Peripheral vascular disease, unspecified | CPT/HCPCS: 73630; 80048; 83036; 85025; 86140 ==

== ENCOUNTER → 2024-12-28 09:33 | Outpatient (BNVA) | payer MEDICARE, MEDICAID, SELFPAY | PROVIDERS: PCP Nurse Practitioner Family; Visit Provider Thoracic Surgery (Cardiothoracic Vascular Surgery) | DX: E11.52 Type 2 diabetes mellitus with diabetic peripheral angiopathy with gangrene (principal); E11.621 Type 2 diabetes mellitus with foot ulcer; L97.412 Non-pressure chronic ulcer of right heel and midfoot with fat layer exposed | CPT/HCPCS: 11042; A6210 ==

== ENCOUNTER → 2025-01-04 10:18 | Outpatient (BNVA) | payer MEDICARE, MEDICAID, SELFPAY | PROVIDERS: PCP Nurse Practitioner Family; Visit Provider Thoracic Surgery (Cardiothoracic Vascular Surgery) | DX: E11.52 Type 2 diabetes mellitus with diabetic peripheral angiopathy with gangrene (principal); E11.621 Type 2 diabetes mellitus with foot ulcer; L97.415 Non-pressure chronic ulcer of right heel and midfoot with muscle involvement without evidence of necrosis | CPT/HCPCS: 11042; A6210 ==

== ENCOUNTER 2025-01-11 11:21 | Outpatient (CLI) | payer MEDICARE, MEDICAID, SELFPAY ==
--- NOTE | 2025-01-11 11:30 | CTR_ITS ---
PROCEDURE INFORMATION: Exam: CTA Abdominal Aorta and Bilateral Lower Extremities (Run-off) With Contrast Exam date and time: 01/11/2025 11:41 AM Age: 54 years old Clinical indication: Condition or disease; Peripheral vascular disease; Prior surgery; Surgery date: 6+ months; Surgery type: RT foot/toes x 5 years ago; Type 2 diabetes mellitus with RT foot ulcer, prior HX revascularization, bleeding on bottom of right foot; Additional info: E11.621 - type 2 diabetes mellitus with foot ulcer, prior HX revascularization TECHNIQUE: Imaging protocol: Computed tomographic angiography of the of the abdominal aorta, pelvis and bilateral lower extremities with contrast. 3D rendering (Not supervised by radiologist): MIP and/or 3D reconstructed images were created by the technologist. Radiation optimization: All CT scans at this facility use at least one of these dose optimization techniques: automated exposure control; mA and/or kV adjustment per patient size (includes targeted exams where dose is matched to clinical indication); or iterative reconstruction. Contrast material: OMNIPAQUE 350; Contrast volume: 125 ml; Contrast route: INTRAVENOUS (IV); COMPARISON: CT angio abd aorta runof [id number] 12/25/2020 9:50 AM RADIATION DOSE METRICS: Total DLP (mGy-cm): 1676.37 FINDINGS: Aorta: Mild calcified atherosclerotic changes are seen throughout the abdominal aorta. Celiac trunk and mesenteric arteries: Renal arteries: No occlusion or significant stenosis. Angiogram on the right side: Common iliac artery and hypogastric artery are patent. Calcified atherosclerotic changes are seen. There is a occlusion of the external iliac artery. There is a occluded fem-fem bypass. There is a occluded right fem distal bypass. There is reconstitution of the common femoral artery through collateral. Profunda femoral artery is patent. There is a occlusion of the [place] SFA. There is occlusion of posterior tibial and peroneal artery stents. There is reconstitution of anterior tibial artery through collateral. This provides single-vessel runoff to the foot. Angiogram on the left side: Calcified atherosclerotic changes are seen in the common iliac artery, hypogastric artery and external iliac artery. High-grade stenosis seen at the origin of the hypogastric artery. The common iliac artery and external iliac artery are patent. HAMMERER HELPER is patent. SFA and profunda femoral artery are patent. Popliteal artery is patent. 50% stenosis involving the mid popliteal artery. Three-vessel runoff is seen. Liver: No mass. Gallbladder and biliary ducts: Unremarkable. No calcified stones. No ductal dilation. Pancreas: Unremarkable. No mass. No ductal dilation. Spleen: Normal. No splenomegaly. Adrenal glands: Normal. No mass. Kidneys and ureters: Normal. No mass. Stomach and bowel: Diffuse colonic stool material. No dilated small bowel loop. Appendix: Appendix is normal. Urinary bladder: There is bladder wall thickening measuring 1.1 cm. Reproductive: Unremarkable as visualized. Intraperitoneal space: Unremarkable. No free air. No significant fluid collection. Lymph nodes: No lymphadenopathy. Bones/joints: Transmetatarsal change are seen in the right foot. Mild lumbar spine degenerative changes. Soft tissues: There is a soft tissue defect at the tuft in the right foot measuring 1.[address]/CT angio abd aorta runof [id number] IMPRESSION: 1. On the right side, again seen is occluded fem-fem and fem distal bypass. There is occlusion of the posterior tibial and peroneal artery stents. Reconstituted anterior tibial artery provides single-vessel runoff 2. On the left side, again seen is a 50% stenosis involving the mid popliteal artery. 3. Thickened bladder wall. Cystitis versus underlying mucosal lesion. Clinical correlation is advised. 4. Soft tissue defect seen at the right foot tuft. Direct clinical exam to exclude ulcer is advised. 5. Mild calcified atherosclerotic changes are seen throughout the abdominal aorta. 6. Diffuse colonic stool material. Clinical correlation to exclude constipation is advised. 7. Mild lumbar spine degenerative changes.
[2025-01-11] MEDS: iohexol 350 mg/mL 500 mL Btl (per mL) IV (11:50)
== END 2025-01-11 11:22 | disposition home or self-care (01) ==
PROVIDERS: PCP Nurse Practitioner Family; Visit Provider Thoracic Surgery (Cardiothoracic Vascular Surgery)
DX: E11.621 Type 2 diabetes mellitus with foot ulcer (principal); L97.509 Non-pressure chronic ulcer of other part of unspecified foot with unspecified severity; T82.898A Other specified complication of vascular prosthetic devices, implants and grafts, initial encounter; X58.XXXA Exposure to other specified factors, initial encounter; I70.202 Unspecified atherosclerosis of native arteries of extremities, left leg; I70.201 Unspecified atherosclerosis of native arteries of extremities, right leg; N32.89 Other specified disorders of bladder; M79.89 Other specified soft tissue disorders; I70.0 Atherosclerosis of aorta; R93.89 Abnormal findings on diagnostic imaging of other specified body structures; M51.369 Other intervertebral disc degeneration, lumbar region without mention of lumbar back pain or lower extremity pain; I70.8 Atherosclerosis of other arteries; R93.6 Abnormal findings on diagnostic imaging of limbs
CPT/HCPCS: 11042; 75635; A6210

== ENCOUNTER → 2025-01-18 10:08 | Outpatient (BNVA) | payer MEDICARE, MEDICAID, SELFPAY | PROVIDERS: PCP Nurse Practitioner Family | DX: E11.52 Type 2 diabetes mellitus with diabetic peripheral angiopathy with gangrene (principal); E11.621 Type 2 diabetes mellitus with foot ulcer; L97.412 Non-pressure chronic ulcer of right heel and midfoot with fat layer exposed | CPT/HCPCS: 97597; A6210 ==

== ENCOUNTER 2025-01-25 09:08 | Emergency (ER) | payer MEDICARE, MEDICAID, SELFPAY ==
[2025-01-25 09:17] VITALS: BP 135/88; PULSE 104; RESP 18; TEMP 36.6; O2SAT 99; BMI 28.5
--- NOTE | 2025-01-25 10:04 | ED_ITS ---
HPI - Skin/Abscess/Foreign Bdy General: Chief complaint: Skin/Abscess/Foreign Body Stated complaint: bump on back of head Time Seen by Provider: 01/25/25 09:41 History of Present Illness: 54-year-old male presents emergency depa rtment reporting that he has had a bump on the back of his head for a long time but over the last couple days it has become tender and red. says it feels a little bit warm. Patient suspects it has turned into an abscess. He is diabetic. He does not endorse any systemic symptoms. Associated symptoms: Deny chills or fever(s) Related Data Home Medications ?Medication ?Instructions ?Recorded ?Confirmed aspirin 81 mg tablet,delayed 81 mg PO DAILY@08 12/27/24 release (Adult Aspirin Regimen) acetaminophen 500 mg tablet 1,500 mg PO PRN pain 12/0512/27/24 (Tylenol Extra Strength) hydrocodone 5 mg-acetaminophen 325 tab PO 11/28/24 mg tablet Previous Rx's ?Medication ?Instructions ?Recorded blood sugar diagnostic (ReliOn #360 ea 09/03/21 Prime Test Strips) blood-glucose meter (ReliOn Micro #1 ea 09/03/21 Glucose Monitor) pen needle, diabetic 31 gauge x #100 ea 11/04/21/ (Easy Comfort Pen Lanagan) cam boot #1 ea 03/11/23 blood-glucose meter,continuous #1 ea 03/14/24 (Dexcom G7 Gluing Machine Feeder) CAM walker #1 ea 03/28/24 rivaroxaban 2.5 mg tablet (Xarelto) See Rx Instruction s .Route 04/27/24 .COMPLEX #60 tabs rivaroxaban 20 mg tablet (Xarelto) 20 mg PO DAILY #90 tabs 05/30/24 furosemide 40 mg tablet See Rx Instructions .Route 1 10/29/23 .COMPLEX #90 tabs mupirocin 2 % topical ointment 1 applic topical BID 2 weeks #22 09/08/24 grams metolazone 5 mg tablet See Rx Instructions .Route 1 11/22/23 .COMPLEX #90 tabs albuterol sulfate 90 mcg/actuation See Rx Instructions .Route 11/17/24 aerosol inhaler .COMPLEX #7 ea clopidogrel 75 mg tablet See Rx Instructions .Route 0 11/28/24 .COMPLEX #90 tabs CAM walker #1 ea 12/06/24 Diabetic Shoes with 3 pairs of #1 ea 12/06/24 Custom Molded Inserts and a foot prosthetic to the Right atorvastatin 40 mg tablet 40 mg PO DAILY 1 month #30 t abs 12/12/24 gabapentin 400 mg capsule See Rx Instructions .Route 0 12/12/24 .COMPLEX #270 caps insulin aspart U-100 100 unit/mL 2 unit (0.02 mL) SUBC UT .TIDAC PRN 12/12/24 (3 mL) subcutaneous pen (Novolog sliding scale #15 mL FlexPen U-100 Insulin aspart) clindamycin HCl 300 mg capsule 300 mg PO TID 7 days #2 1 caps 12/27/24 tramadol 50 mg tablet 50 mg PO TID PRN pain #14 ta bs 12/27/24 blood-glucose sensor (Dexcom G7 #6 ea 12/30/24 Sensor device) potassium chloride 20 mEq See Rx Instructions .Route 0 01/03/25 tablet,extended release(part/cryst) .COMPLEX #20 tabs doxycycline hyclate 100 mg capsule 100 mg PO BID 7 day s #14 caps 01/25/25 tirzepatide 10 mg/0.5 mL See Rx Instructions .Route 0 01/25/25 subcutaneous pen injector .COMPLEX #2.5 mL (Mounjaro) Allergies Allergy/AdvReac Type Severity Reaction Status Date / Time Penicillins Allergy Intermediate swelling Verified 12/27/24 10:32 Review of Systems General: Reports: 10 or more systems reviewed and unremarkable except in HPI and below Const: Denies: fever(s) or chills PFSH ED PFSH: Medical History CAD (coronary artery disease) Critical lower limb ischemia Smoking addiction Ulcer of right foot with necrosis of bone Diabetic neuropathy Anxiety Hypertension Hyperlipidemia PVD (peripheral vascular disease) DM type 2 (diabetes mellitus, type 2) Surgical History S/P femoral-femoral bypass surgery Status post transmetatarsal amputation of right foot History of heart artery stent H/O hernia repair Hx of amputation of lesser toe Family History Sister Diabetes Mother Diabetes Father CAD (coronary artery disease) Social History Smoking and tobacco/nicotine status: unknown if used tobacco/nicotine Second hand smoke exposure: Yes Alcohol intake: never Substance/Drug Use: never Adopted: No Caregiver/support person: No Lives independently: No Household members: spouse Marital status: service: No Current occupational status: disabled Sexually active: Yes Do you think of yourself as: Straight/Heterosexual Current gender identity: Male Physical Exam Narrative: EXAM NARRATIVE: There is a quarter sized mass on the occipital region of the scalp with induration, erythema, tenderness. It is not pointing . The skin is intact. It is relatively mobile. No surrounding cellulitis or streaking. Const: COMMON NORMALS: no limitations, alert and well nourished EXAM LIMITATIONS: no altered mental status HENMT: COMMON NORMALS: normocephalic, atraumatic and external ears normal HEAD & SCALP: normocephalic and atraumatic EXTERNAL EAR: Yes external ears normal MOUTH: no muffled voice Resp: COMMON NORMALS: normal respiratory effort and No use of accessory muscles Neuro: COMMON NORMALS: moves all extremities, no focal motor deficits and no sensory deficits noted SENSORIUM/ORIENTATION: Yes alert SPEECH: speech normal Psych: COMMON NORMALS: mental status grossly normal, Normal thought process present, cooperative, normal affect and speech normal SPEECH: Yes normal speech THOUGHT PROCESS: Normal thought process present Skin: COMMON NORMALS: turgor normal and no jaundice GENERAL SKIN EXAM: turgor normal Course Vital Signs: Vital signs: Vital Signs Temperature 97.9 F 01/25/25 09:17 Pulse Rate 104 H 01/25/25 09:17 Respiratory Rate 18 01/25/25 09:17 Blood Pressure 135/88 01/25/25 09:17 Pulse Oximetry 99 01/25/25 09:17 Oxygen Delivery Me thod Room Air 01/25/25 09:17 MDM - Skin/Abscess/Foreign Bdy Medicial Decision Making Differential diagnosis includes lipoma, abscess, cellulitis, neoplasm, infected follicle, sebaceous cyst, other Will clean, anesthetized locally, and perform I&D. Update 1030 Incision was made, subcutaneous mass was inspected. This is a sebaceous cyst with a cyst sac. Suspect it has recently got infected. I was able to drain the entire sac and then remove the cyst sac itself. With such good source control, it is unlikely that he will need antibiotics. Patient already feels better. I will send in some doxycycline (penicillin allergy) to his pharmacy in the event that he is still got tenderness and redness in 48 hours. However, it is unlikely he will need it. No radiology studies performed this visit Discharge Plan Discharge Patient Disposition: Home Clinical Impression: Infected sebaceous cyst of skin Condition: Stable Prescriptions: New doxycycline hyclate 100 mg capsule 100 mg PO BID 7 Days Qty: 14 0RF No Action aspirin [Adult Aspirin Regimen] 81 mg tablet,delayed release (DR/EC) 81 mg PO DAILY@08 ([facility] [place]) blood-glucose meter [ReliOn Micro Glucose Monitor] Misc See Rx Instructions .Route Qty: 1 0RF Rx Instructions: Check BS 4 times a day. ([facility] [place]) ReliOn Prime Test Strips Strip See Rx Instructions .Route Qty: 360 3RF Rx Instructions: As directed ([facility] [place]) maira sears See Rx Instructions .Route .MEDSUPPLY Qty: 1 0RF Rx Instructions: As directed ([facility] [place]) Diabetic Shoes with 3 pairs of Custom Molded Inserts and a foot prosthetic to the Right See Rx Instructions .Route .MEDSUPPLY Qty: 1 0RF Rx Instructions: As directed by Mekhi Roy ([facility] [place]) MAIRA álvarez See Rx Instructions .Route .MEDSUPPLY Qty: 1 0RF Rx Instructions: As directed metolazone 5 mg tablet See Rx Instructions .ROUTE .COMPLEX Qty: 90 0RF Dose Instruction: Take 1 tablet by mouth once daily Rx Instructions: Take 1 tablet by mouth once daily insulin aspart U-100 [Novolog FlexPen U-100 Insulin] 100 unit/mL (3 mL) insulin pen 2 unit SUBCUT .TIDAC PRN (Reason: sliding scale) Qty: 15 0RF atorvastatin 40 mg tablet 40 mg PO DAILY 30 Days Qty: 30 5RF hydrocodone-acetaminophen 5-325 mg tablet PO clopidogrel 75 mg tablet See Rx Instructions .ROUTE .COMPLEX Qty: 90 0RF Dose Instruction: Take 1 tablet by mouth once daily Rx Instructions: Take 1 tablet by mouth once daily clindamycin HCl 300 mg capsule 300 mg PO TID 7 Days Qty: 21 0RF tramadol 50 mg tablet 50 mg PO TID PRN (Reason: pain) Qty: 14 0RF (DME) MAIRA álvarez See Rx Instructions .Route .MEDSUPPLY Qty: 1 0RF Rx Instructions: As directed Xarelto 20 mg tablet 20 mg PO DAILY Qty: 90 3RF Rx Instructions: must administer with evening meal (DME) pen needle, diabetic [Easy Comfort Pen Lanagan] 31 gauge x 5/16 needle See Rx Instructions .Route Qty: 100 3RF Rx Instructions: As directed (DME) Dexcom G7 Gluing Machine Feeder Misc See Rx Instructions .Route Qty: 1 2RF Rx Instructions: As directed Xarelto 2.5 mg tablet See Rx Instructions .ROUTE .COMPLEX Qty: 60 0RF Dose Instruction: Take 1 tablet by mouth twice daily Rx Instructions: Take 1 tablet by mouth twice daily furosemide 40 mg tablet See Rx Instructions .ROUTE .COMPLEX Qty: 90 0RF Dose Instruction: Take 1 tablet by mouth once daily Rx Instructions: Take 1 tablet by mouth once daily mupirocin 2 % ointment 1 applic topical BID 14 Days Qty: 22 2RF albuterol sulfate 90 mcg/actuation HFA aerosol inhaler See Rx Instructions .ROUTE .COMPLEX Qty: 7 0RF Dose Instruction: INHALE 2 PUFFS BY MOUTH 4 TIMES DAILY NEEDED FOR SHORTNESS OF BREATH OR WHEEZING Rx Instructions: INHALE 2 PUFFS BY MOUTH 4 TIMES DAILY NEEDED FOR SHORTNESS OF BREATH OR WHEEZING gabapentin 400 mg capsule See Rx Instructions .ROUTE .COMPLEX Qty: 270 0RF Dose Instruction: TAKE 1 CAPSULE BY MOUTH THREE TIMES DAILY Rx Instructions: TAKE 1 CAPSULE BY MOUTH THREE TIMES DAILY (DME) Dexcom G7 Sensor Device See Rx Instructions .ROUTE .COMPLEX Qty: 6 0RF Dose Instruction: CHANGE EVERY 10 DAYS Rx Instructions: CHANGE EVERY 10 DAYS potassium chloride 20 mEq tablet,ER particles/crystals See Rx Instructions .ROUTE .COMPLEX Qty: 20 0RF Dose Instruction: TAKE 1 TABLET BY MOUTH TWICE DAILY AT 8 A.M AND 8 P.M Rx Instructions: TAKE 1 TABLET BY MOUTH TWICE DAILY AT 8 A.M AND 8 P.M Mounjaro 10 mg/0.5 mL pen injector See Rx Instructions .ROUTE .COMPLEX Qty: 2.5 0RF Dose Instruction: inject 10mg (0.5ml) SUBCUTANEOUSLY EVERY 7 DAYS FOR ONE MONTH Rx Instructions: inject 10mg (0.5ml) SUBCUTANEOUSLY EVERY 7 DAYS FOR ONE MONTH acetaminophen [Tylenol Extra Strength] 500 mg Tablet 1,500 mg PO PRN Discharge Orders: Discharge ED (Routine); Ordered 01/25/25 Ordered By: Kenny Candelario Referrals: Shakira Benavides FNP [Primary Care Provider] - 02/01/25 (As needed for follow-up of infected sebaceous cyst of the scalp) Patient Instructions: Dermal Cyst Excision (DC) Activity Restrictions/Additional Instructions: You may shower but avoid submerging your head completely underwater such as in a bathtub, pool or hot tub. The surgical incision will heal naturally in a few days. If you notice persistent signs of redness, pain, swelling, or other signs of infection then you may take the doxycycline that was sent to your pharmacy. If you do not notice any of these signs, then you will not need the doxycycline. Print Language: Tajik Coding Level of Care Code ED [place] Induction for Lisandro Keita
[2025-01-25] MEDS: lidocaine-epi 1% 20 mL INJ INJECTION (10:34)
[2025-01-25 10:35] VITALS: PULSE 92; O2SAT 99
[2025-01-25 10:38] VITALS: PULSE 91; O2SAT 98
== END 2025-01-25 10:46 | disposition home or self-care (01) ==
PROVIDERS: Emergency Provider Emergency Medicine; PCP Nurse Practitioner Family
DX: L72.3 Sebaceous cyst (principal); Z79.82 Long term (current) use of aspirin; E78.5 Hyperlipidemia, unspecified; I25.10 Atherosclerotic heart disease of native coronary artery without angina pectoris; I10 Essential (primary) hypertension; E11.40 Type 2 diabetes mellitus with diabetic neuropathy, unspecified
CPT/HCPCS: 99283; J9999

== ENCOUNTER → 2025-01-26 08:50 | Outpatient (BNVA) | payer MEDICARE, MEDICAID, SELFPAY | PROVIDERS: PCP Nurse Practitioner Family; Visit Provider Nurse Practitioner Family | DX: I25.10 Atherosclerotic heart disease of native coronary artery without angina pectoris (principal); I73.9 Peripheral vascular disease, unspecified; I10 Essential (primary) hypertension; E78.2 Mixed hyperlipidemia; I48.91 Unspecified atrial fibrillation; E11.9 Type 2 diabetes mellitus without complications; Z87.891 Personal history of nicotine dependence; Z79.4 Long term (current) use of insulin; Z79.01 Long term (current) use of anticoagulants | CPT/HCPCS: 99214 ==

== ENCOUNTER → 2025-02-08 10:40 | Outpatient (BNVA) | payer MEDICARE, MEDICAID, SELFPAY | PROVIDERS: PCP Nurse Practitioner Family; Visit Provider Thoracic Surgery (Cardiothoracic Vascular Surgery) | DX: E11.52 Type 2 diabetes mellitus with diabetic peripheral angiopathy with gangrene (principal); E11.621 Type 2 diabetes mellitus with foot ulcer; L97.411 Non-pressure chronic ulcer of right heel and midfoot limited to breakdown of skin | CPT/HCPCS: 97597; A6210 ==

== ENCOUNTER → 2025-02-15 10:41 | Outpatient (BNVA) | payer MEDICARE, MEDICAID, SELFPAY | PROVIDERS: PCP Nurse Practitioner Family; Visit Provider Thoracic Surgery (Cardiothoracic Vascular Surgery) | DX: E11.52 Type 2 diabetes mellitus with diabetic peripheral angiopathy with gangrene (principal); E11.621 Type 2 diabetes mellitus with foot ulcer; L97.413 Non-pressure chronic ulcer of right heel and midfoot with necrosis of muscle | CPT/HCPCS: 11043; A6210 ==

== ENCOUNTER → 2025-02-22 09:46 | Outpatient (BNVA) | payer MEDICARE, MEDICAID, SELFPAY | PROVIDERS: PCP Nurse Practitioner Family; Visit Provider Thoracic Surgery (Cardiothoracic Vascular Surgery) | DX: E11.52 Type 2 diabetes mellitus with diabetic peripheral angiopathy with gangrene (principal); E11.621 Type 2 diabetes mellitus with foot ulcer; L97.415 Non-pressure chronic ulcer of right heel and midfoot with muscle involvement without evidence of necrosis; L97.511 Non-pressure chronic ulcer of other part of right foot limited to breakdown of skin | CPT/HCPCS: 11042; 97597; A6210 ==

== ENCOUNTER → 2025-03-01 09:31 | Outpatient (BNVA) | payer MEDICARE, MEDICAID, SELFPAY | PROVIDERS: PCP Nurse Practitioner Family; Visit Provider Thoracic Surgery (Cardiothoracic Vascular Surgery) | DX: E11.52 Type 2 diabetes mellitus with diabetic peripheral angiopathy with gangrene (principal); E11.621 Type 2 diabetes mellitus with foot ulcer; L97.415 Non-pressure chronic ulcer of right heel and midfoot with muscle involvement without evidence of necrosis | CPT/HCPCS: 97597; A6210 ==

== ENCOUNTER → 2025-03-08 10:12 | Outpatient (BNVA) | payer MEDICARE, MEDICAID, SELFPAY | PROVIDERS: PCP Nurse Practitioner Family; Visit Provider Thoracic Surgery (Cardiothoracic Vascular Surgery) | DX: E11.52 Type 2 diabetes mellitus with diabetic peripheral angiopathy with gangrene (principal); E11.621 Type 2 diabetes mellitus with foot ulcer; L97.415 Non-pressure chronic ulcer of right heel and midfoot with muscle involvement without evidence of necrosis | CPT/HCPCS: 11042; A6210 ==

== ENCOUNTER → 2025-03-15 10:47 | Outpatient (BNVA) | payer MEDICARE, MEDICAID, SELFPAY | PROVIDERS: PCP Nurse Practitioner Family; Visit Provider Thoracic Surgery (Cardiothoracic Vascular Surgery) | DX: E11.52 Type 2 diabetes mellitus with diabetic peripheral angiopathy with gangrene (principal); E11.621 Type 2 diabetes mellitus with foot ulcer; L97.415 Non-pressure chronic ulcer of right heel and midfoot with muscle involvement without evidence of necrosis | CPT/HCPCS: 11042; A6210 ==

== ENCOUNTER → 2025-03-16 15:05 | Outpatient (BNVA) | payer MEDICARE, MEDICAID, SELFPAY | PROVIDERS: PCP Nurse Practitioner Family; Visit Provider Internal Medicine | DX: I73.9 Peripheral vascular disease, unspecified (principal); I11.0 Hypertensive heart disease with heart failure; I50.9 Heart failure, unspecified; I25.10 Atherosclerotic heart disease of native coronary artery without angina pectoris; E78.2 Mixed hyperlipidemia; Z89.431 Acquired absence of right foot; Z79.01 Long term (current) use of anticoagulants; Z79.82 Long term (current) use of aspirin; Z95.5 Presence of coronary angioplasty implant and graft; F17.210 Nicotine dependence, cigarettes, uncomplicated | CPT/HCPCS: 99204; 99214 ==

== ENCOUNTER → 2025-03-22 10:38 | Outpatient (BNVA) | payer MEDICARE, MEDICAID, SELFPAY | PROVIDERS: PCP Nurse Practitioner Family; Visit Provider Thoracic Surgery (Cardiothoracic Vascular Surgery) | DX: E11.52 Type 2 diabetes mellitus with diabetic peripheral angiopathy with gangrene (principal); E11.621 Type 2 diabetes mellitus with foot ulcer; L97.415 Non-pressure chronic ulcer of right heel and midfoot with muscle involvement without evidence of necrosis | CPT/HCPCS: 11042; A6210 ==

== ENCOUNTER → 2025-04-12 08:56 | Outpatient (BNVA) | payer MEDICARE, MEDICAID, SELFPAY | PROVIDERS: PCP Nurse Practitioner Family; Visit Provider Thoracic Surgery (Cardiothoracic Vascular Surgery) | DX: E11.52 Type 2 diabetes mellitus with diabetic peripheral angiopathy with gangrene (principal); E11.621 Type 2 diabetes mellitus with foot ulcer; L97.415 Non-pressure chronic ulcer of right heel and midfoot with muscle involvement without evidence of necrosis | CPT/HCPCS: 11042; A6210 ==

== ENCOUNTER → 2025-04-19 09:48 | Outpatient (BNVA) | payer MEDICARE, MEDICAID, SELFPAY | PROVIDERS: PCP Nurse Practitioner Family; Visit Provider Thoracic Surgery (Cardiothoracic Vascular Surgery) | DX: E11.52 Type 2 diabetes mellitus with diabetic peripheral angiopathy with gangrene (principal); E11.621 Type 2 diabetes mellitus with foot ulcer; L97.415 Non-pressure chronic ulcer of right heel and midfoot with muscle involvement without evidence of necrosis | CPT/HCPCS: 97597; A6210 ==

== ENCOUNTER → 2025-05-03 09:43 | Outpatient (BNVA) | payer MEDICARE, MEDICAID, SELFPAY | PROVIDERS: PCP Nurse Practitioner Family; Visit Provider Thoracic Surgery (Cardiothoracic Vascular Surgery) | DX: E11.52 Type 2 diabetes mellitus with diabetic peripheral angiopathy with gangrene (principal); E11.621 Type 2 diabetes mellitus with foot ulcer; L97.513 Non-pressure chronic ulcer of other part of right foot with necrosis of muscle | CPT/HCPCS: 97597; A6210 ==

== ENCOUNTER 2025-05-23 09:09 | Outpatient (CLI) | payer MEDICARE, MEDICAID, SELFPAY ==
--- NOTE | 2025-05-23 09:15 | XRR_ITS ---
PROCEDURE INFORMATION: Exam: XR Right Foot Exam date and time: 05/23/2025 9:34 AM Age: 55 years old Clinical indication: Condition or disease; Other: Wound; Prior surgery; Surgery date: 6+ months; Surgery type: RT foot; Additional info: Unhealed wound TECHNIQUE: Imaging protocol: Radiologic exam of the right foot. Views: 3 or more views. COMPARISON: CT angio abd aorta runof [id number] 01/11/2025 11:41 AM FINDINGS: Bones/joints: Amputation of the foot at the level of the proximal metatarsals. Marked diffuse demineralization. Achilles calcaneal spurring. The findings of demineralization are diffuse rather than localized. No convincing evidence of osteomyelitis is present, that diagnosis is not excluded. Soft tissues: Normal. XR/XR foot RT min 3V* [id number] IMPRESSION: Prior surgery. Diffuse demineralization.
[2025-05-23 10:15] LABS: Hematocrit 41.6 % (37-53); Hemoglobin 13.80 g/dL (11.27-16.99); Mean Corpuscular HGB Conc 33.2 g/dL (30-55); Mean Corpuscular Hemoglobin 29.8 pg (27-33); Mean Corpuscular Volume 89.8 fl (82-101); Nucleated Red Blood Cells % 0 %; Platelet Count 346 10^3/cmm (157-399); Red Blood Count 4.63 10^6/uL (3.85-5.65); White Blood Count 13.74 10^3/uL (3.29-11.43)
[2025-05-23 10:31] LABS: Estmated Average Glucose 134; Hemoglobin A1C 6.3 % (4.0-6.0)
[2025-05-23 10:32] LABS: Alanine Aminotransferase 8 U/L (0-41); Albumin Level 3.4 g/dL (3.5-5.2); Alkaline Phosphatase 114 U/L (40-130); Anion Gap 14.8 (5-19); Aspartate Amino Transferase 11 U/L (0-40); Blood Urea Nitrogen 19 mg/dL (6-20); Calcium 8.9 mg/dL (8.5-10.5); Carbon Dioxide 26 mmol/L (22-29); Chloride 102 mmol/L (98-107); Cholesterol 143 mg/dL (0-200); Globulin 3.4 g/dL (1.3-4.6); Glucose 106 mg/dL (65-115); HDL Cholesterol 28 mg/dL (60-100); Osmolality Calculated 289 mOsm/kg (285-295); Potassium 4.8 mmol/L (3.5-5.1); Prealbumin 13.6 mg/dL (20-40); Sodium 138 mmol/L (136-145); Total Protein 6.8 g/dL (6.6-8.7); Triglycerides 95 mg/dL (0-150)
[2025-05-23 10:33] LABS: Creatinine Urine, Random 148 mg/dL (39-259); Microalbum Creatinine Ratio Ur 20 mg/dL (0-20)
== END 2025-05-23 09:10 | disposition home or self-care (01) ==
PROVIDERS: Family Provider Internal Medicine; PCP Nurse Practitioner Family; Visit Provider Thoracic Surgery (Cardiothoracic Vascular Surgery)
DX: L97.513 Non-pressure chronic ulcer of other part of right foot with necrosis of muscle (principal); E11.621 Type 2 diabetes mellitus with foot ulcer; L97.519 Non-pressure chronic ulcer of other part of right foot with unspecified severity; E11.42 Type 2 diabetes mellitus with diabetic polyneuropathy; E78.2 Mixed hyperlipidemia; I73.9 Peripheral vascular disease, unspecified; E11.49 Type 2 diabetes mellitus with other diabetic neurological complication; Z89.431 Acquired absence of right foot; Z79.4 Long term (current) use of insulin; Z95.5 Presence of coronary angioplasty implant and graft; M85.871 Other specified disorders of bone density and structure, right ankle and foot; M77.31 Calcaneal spur, right foot; Z98.890 Other specified postprocedural states
CPT/HCPCS: 29445; 36415; 73630; 80053; 80061; 82044; 83036; 84134; 85025; 85651; 86140; A6210; A6251

== ENCOUNTER → 2025-05-25 09:57 | Outpatient (BNVA) | payer MEDICARE, MEDICAID, SELFPAY | PROVIDERS: Family Provider Internal Medicine; PCP Nurse Practitioner Family; Visit Provider Thoracic Surgery (Cardiothoracic Vascular Surgery) | DX: E11.52 Type 2 diabetes mellitus with diabetic peripheral angiopathy with gangrene (principal); E11.621 Type 2 diabetes mellitus with foot ulcer; L97.411 Non-pressure chronic ulcer of right heel and midfoot limited to breakdown of skin | CPT/HCPCS: 29445; A6210; A6213; A6252 ==

== ENCOUNTER → 2025-05-31 09:31 | Outpatient (BNVA) | payer MEDICARE, MEDICAID, SELFPAY | PROVIDERS: Family Provider Internal Medicine; PCP Nurse Practitioner Family; Visit Provider Thoracic Surgery (Cardiothoracic Vascular Surgery) | DX: E11.52 Type 2 diabetes mellitus with diabetic peripheral angiopathy with gangrene (principal); E11.621 Type 2 diabetes mellitus with foot ulcer; L97.415 Non-pressure chronic ulcer of right heel and midfoot with muscle involvement without evidence of necrosis | CPT/HCPCS: 11043; A6197; A6251 ==

== ENCOUNTER → 2025-06-07 10:37 | Outpatient (BNVA) | payer MEDICARE, MEDICAID, SELFPAY | PROVIDERS: Family Provider Internal Medicine; PCP Nurse Practitioner Family; Visit Provider Thoracic Surgery (Cardiothoracic Vascular Surgery) | DX: E11.52 Type 2 diabetes mellitus with diabetic peripheral angiopathy with gangrene (principal); E11.621 Type 2 diabetes mellitus with foot ulcer; L97.411 Non-pressure chronic ulcer of right heel and midfoot limited to breakdown of skin | CPT/HCPCS: 97597; A6197 ==

== ENCOUNTER 2025-06-08 11:46 | Outpatient (CLI) | payer MEDICARE, MEDICAID, SELFPAY | END 2025-06-08 11:47 | disposition home or self-care (01) | LOC: SPT 11:46 | PROVIDERS: Family Provider Internal Medicine; PCP Nurse Practitioner Family; Visit Provider Podiatrist Foot & Ankle Surgery | DX: Z46.89 Encounter for fitting and adjustment of other specified devices (principal); Z86.31 Personal history of diabetic foot ulcer; L97.519 Non-pressure chronic ulcer of other part of right foot with unspecified severity | CPT/HCPCS: L4361 ==

== ENCOUNTER → 2025-06-22 09:09 | Outpatient (BNVA) | payer MEDICARE, MEDICAID, SELFPAY | PROVIDERS: Family Provider Internal Medicine; PCP Nurse Practitioner Family; Visit Provider Thoracic Surgery (Cardiothoracic Vascular Surgery) | DX: E11.52 Type 2 diabetes mellitus with diabetic peripheral angiopathy with gangrene (principal); E11.621 Type 2 diabetes mellitus with foot ulcer; L97.411 Non-pressure chronic ulcer of right heel and midfoot limited to breakdown of skin | CPT/HCPCS: 97597; A6197 ==

== ENCOUNTER → 2025-06-29 08:52 | Outpatient (BNVA) | payer MEDICARE, MEDICAID, SELFPAY | PROVIDERS: Family Provider Internal Medicine; PCP Nurse Practitioner Family; Visit Provider Thoracic Surgery (Cardiothoracic Vascular Surgery) | DX: E11.52 Type 2 diabetes mellitus with diabetic peripheral angiopathy with gangrene (principal); E11.621 Type 2 diabetes mellitus with foot ulcer; L97.411 Non-pressure chronic ulcer of right heel and midfoot limited to breakdown of skin | CPT/HCPCS: 97597 ==

== ENCOUNTER → 2025-07-06 08:56 | Outpatient (BNVA) | payer MEDICARE, MEDICAID, SELFPAY | PROVIDERS: Family Provider Internal Medicine; PCP Nurse Practitioner Family; Visit Provider Thoracic Surgery (Cardiothoracic Vascular Surgery) | DX: E11.52 Type 2 diabetes mellitus with diabetic peripheral angiopathy with gangrene (principal); E11.621 Type 2 diabetes mellitus with foot ulcer; L97.411 Non-pressure chronic ulcer of right heel and midfoot limited to breakdown of skin | CPT/HCPCS: 97597; A6197 ==

== ENCOUNTER → 2025-07-13 09:01 | Outpatient (BNVA) | payer MEDICARE, MEDICAID, SELFPAY | PROVIDERS: Family Provider Internal Medicine; PCP Nurse Practitioner Family; Visit Provider Thoracic Surgery (Cardiothoracic Vascular Surgery) | DX: E11.52 Type 2 diabetes mellitus with diabetic peripheral angiopathy with gangrene (principal); E11.621 Type 2 diabetes mellitus with foot ulcer; L97.411 Non-pressure chronic ulcer of right heel and midfoot limited to breakdown of skin | CPT/HCPCS: 97597; A6197 ==

== ENCOUNTER → 2025-07-20 09:05 | Outpatient (BNVA) | payer MEDICARE, MEDICAID, SELFPAY | PROVIDERS: Family Provider Internal Medicine; PCP Nurse Practitioner Family; Visit Provider Thoracic Surgery (Cardiothoracic Vascular Surgery) | DX: E11.52 Type 2 diabetes mellitus with diabetic peripheral angiopathy with gangrene (principal); E11.621 Type 2 diabetes mellitus with foot ulcer; L97.411 Non-pressure chronic ulcer of right heel and midfoot limited to breakdown of skin | CPT/HCPCS: 97597; A6213; A6251 ==

== ENCOUNTER → 2025-07-26 10:00 | Outpatient (BNVA) | payer MEDICARE, MEDICAID, SELFPAY | PROVIDERS: Family Provider Internal Medicine; PCP Nurse Practitioner Family; Visit Provider Thoracic Surgery (Cardiothoracic Vascular Surgery) | DX: E11.52 Type 2 diabetes mellitus with diabetic peripheral angiopathy with gangrene (principal); E11.621 Type 2 diabetes mellitus with foot ulcer; L97.411 Non-pressure chronic ulcer of right heel and midfoot limited to breakdown of skin | CPT/HCPCS: 97597; A6252 ==

== ENCOUNTER → 2025-08-03 08:57 | Outpatient (BNVA) | payer MEDICARE, MEDICAID, SELFPAY | PROVIDERS: Family Provider Internal Medicine; PCP Nurse Practitioner Family; Visit Provider Thoracic Surgery (Cardiothoracic Vascular Surgery) | DX: E11.52 Type 2 diabetes mellitus with diabetic peripheral angiopathy with gangrene (principal); E11.621 Type 2 diabetes mellitus with foot ulcer; L97.411 Non-pressure chronic ulcer of right heel and midfoot limited to breakdown of skin | CPT/HCPCS: 97597; A6212 ==

== ENCOUNTER → 2025-08-17 09:02 | Outpatient (BNVA) | payer MEDICARE, MEDICAID, SELFPAY | PROVIDERS: Family Provider Internal Medicine; PCP Nurse Practitioner Family; Visit Provider Thoracic Surgery (Cardiothoracic Vascular Surgery) | DX: E11.52 Type 2 diabetes mellitus with diabetic peripheral angiopathy with gangrene (principal); E11.621 Type 2 diabetes mellitus with foot ulcer; L97.411 Non-pressure chronic ulcer of right heel and midfoot limited to breakdown of skin | CPT/HCPCS: 97597; A6212; A6252 ==

== ENCOUNTER → 2025-08-23 08:59 | Outpatient (BNVA) | payer MEDICARE, MEDICAID, SELFPAY | PROVIDERS: Family Provider Internal Medicine; PCP Nurse Practitioner Family; Visit Provider Thoracic Surgery (Cardiothoracic Vascular Surgery) | DX: E11.52 Type 2 diabetes mellitus with diabetic peripheral angiopathy with gangrene (principal); E11.621 Type 2 diabetes mellitus with foot ulcer; L97.411 Non-pressure chronic ulcer of right heel and midfoot limited to breakdown of skin | CPT/HCPCS: 97597; A6251 ==

== ENCOUNTER → 2025-09-06 08:56 | Outpatient (BNVA) | payer MEDICARE, MEDICAID, SELFPAY | PROVIDERS: Family Provider Internal Medicine; PCP Nurse Practitioner Family; Visit Provider Thoracic Surgery (Cardiothoracic Vascular Surgery) | DX: E11.52 Type 2 diabetes mellitus with diabetic peripheral angiopathy with gangrene (principal); E11.621 Type 2 diabetes mellitus with foot ulcer; L97.411 Non-pressure chronic ulcer of right heel and midfoot limited to breakdown of skin | CPT/HCPCS: 97597; A6212; A6252 ==

== ENCOUNTER → 2025-09-13 10:30 | Outpatient (BNVA) | payer MEDICARE, MEDICAID, SELFPAY | PROVIDERS: Family Provider Internal Medicine; PCP Nurse Practitioner Family; Visit Provider Thoracic Surgery (Cardiothoracic Vascular Surgery) | DX: E11.52 Type 2 diabetes mellitus with diabetic peripheral angiopathy with gangrene (principal); E11.621 Type 2 diabetes mellitus with foot ulcer; L97.411 Non-pressure chronic ulcer of right heel and midfoot limited to breakdown of skin | CPT/HCPCS: 97597; A6252 ==

== ENCOUNTER → 2025-09-20 12:34 | Outpatient (BNVA) | payer MEDICARE, MEDICAID, SELFPAY | PROVIDERS: Family Provider Internal Medicine; PCP Nurse Practitioner Family; Visit Provider Thoracic Surgery (Cardiothoracic Vascular Surgery) | DX: E11.52 Type 2 diabetes mellitus with diabetic peripheral angiopathy with gangrene (principal); E11.621 Type 2 diabetes mellitus with foot ulcer; L97.413 Non-pressure chronic ulcer of right heel and midfoot with necrosis of muscle | CPT/HCPCS: 11043; A6252 ==